=== PATIENT | female | born 1990 | race Caucasian/White ===

== ENCOUNTER → 2022-04-29 | Outpatient (CLI) | payer OTHER, SELFPAY ==
[2022-04-29 18:01] LABS: hCG Titer Quant., Serum 42 mIU/mL (1-3)
== END | disposition home or self-care (01) ==
PROVIDERS: Visit Provider Obstetrics & Gynecology
DX: N91.2 Amenorrhea, unspecified (principal)
CPT/HCPCS: 36415; 84702

== ENCOUNTER → 2022-05-01 | Outpatient (CLI) | payer OTHER, SELFPAY ==
[2022-05-01 18:04] LABS: hCG Titer Quant., Serum 107 mIU/mL (1-3)
== END | disposition home or self-care (01) ==
LOC: LAB 16:32
PROVIDERS: Visit Provider Obstetrics & Gynecology
DX: N91.2 Amenorrhea, unspecified (principal)
CPT/HCPCS: 36415; 84702

== ENCOUNTER → 2022-06-26 | Outpatient (CLI) | payer OTHER, SELFPAY ==
[2022-06-26 12:47] LABS: hCG Titer Quant., Serum 1793 mIU/mL (1-3)
== END | disposition home or self-care (01) ==
LOC: LAB 11:24
PROVIDERS: Referring Provider Obstetrics & Gynecology; Visit Provider Obstetrics & Gynecology
DX: O03.9 Complete or unspecified spontaneous abortion without complication (principal)
CPT/HCPCS: 36415; 84702

== ENCOUNTER → 2022-07-03 | Outpatient (CLI) | payer OTHER, SELFPAY ==
[2022-07-03 17:54] LABS: hCG Titer Quant., Serum 135 mIU/mL (1-3)
== END | disposition home or self-care (01) ==
LOC: LAB 15:47
PROVIDERS: Visit Provider Obstetrics & Gynecology
DX: O03.9 Complete or unspecified spontaneous abortion without complication (principal)
CPT/HCPCS: 36415; 84702

== ENCOUNTER → 2022-07-08 | Outpatient (CLI) | payer OTHER, SELFPAY ==
--- NOTE | 2022-07-08 11:39 | US_ITS ---
STUDY: ULTRASOUND OF THE FEMALE PELVIS - COMPLETE REASON FOR EXAM: Female, 32 years old. Incomplete . Vaginal bleeding. LMP: 04/04/2022. TECHNIQUE: Transvaginal TECHNICAL QUALITY: Adequate. COMPARISON: None. FINDINGS: The uterus is anteverted and is in a midline position. The uterus measures 8.7 cm x 5.5 cm x 4.1 cm. Normal uterine cervix. The endometrium is thickened and measures 14.3 mm in thickness, and is heterogeneous (striated) and fluid distended. Increased endometrial vascularity. There is no demonstrated myometrial mass. I.U.D. - The patient does not have an I.U.D. The right ovary is visualized. The right ovary measures 3.1 cm x 2 cm x 1.8 cm. There is no right ovarian cyst or ovarian mass. There is no visualized right adnexal mass or complex lesion. There is normal arterial and normal venous vascularity. The left ovary is visualized. The left ovary measures 3.2 cm x 1.7 cm x 2.1 cm. There is no left ovarian cyst or ovarian mass. There is no visualized left adnexal mass or complex lesion. There is normal arterial and normal venous vascularity. There is no fluid in the cul-de-sac. US/Transvaginal Non- IMPRESSION: Heterogeneous thickening of the endometrium as described. Possible retained products of conception. Electronically Signed: Pieter Sam MD at 13:03 EST ,
== END | disposition home or self-care (01) ==
PROVIDERS: Referring Provider Obstetrics & Gynecology; Visit Provider Obstetrics & Gynecology
DX: O03.4 Incomplete spontaneous abortion without complication (principal); N93.9 Abnormal uterine and vaginal bleeding, unspecified; R93.89 Abnormal findings on diagnostic imaging of other specified body structures
CPT/HCPCS: 76830

== ENCOUNTER 2022-07-10 10:50 | Day surgery (SDC) | payer OTHER, SELFPAY ==
[2022-07-10] VITALS (7 sets, daily range): BP systolic 121–132; BP diastolic 62–86; PULSE 16–92; RESP 16; TEMP 36.2–37.4; O2SAT 97–100; BMI 19.2
--- NOTE | 2022-07-10 07:54 | PCM.HP.BLA ---
History and Physical Date of Admission: 07/10/22 Intake Vital Signs ? 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 Required: No Is patient in pain?: No Allergies egg Allergy (Intermediate, Verified 06/26/22 11:04) Low blood pressurePenicillins Allergy (Mild, Verified 06/26/22 11:04) Rashwheat Allergy (Mild, Verified 06/26/22 11:04) Rash Medications bupropion HCl 150 mg 24 hr tablet, extended release (Wellbutrin XL) 150 mg PO QAM 06/12/22 [History Confirmed 06/26/22] bupropion HCl 300 mg 24 hr tablet, extended release (Wellbutrin XL) 300 mg PO QAM 06/12/22 [History Confirmed 06/26/22] lamotrigine 100 mg tablet (Lamictal) 100 mg PO DAILY 06/12/22 [History Confirmed 06/26/22] multivitamin no.47-iron fum 27 mg-folate no.1? 1 mg-dha 300 mg capsule (PNV-DHA) cap PO 06/12/22 [History Confirmed 06/26/22] misoprostol 200 mcg tablet (Cytotec) 800 mcg vaginal ONCE #4 tabs 06/24/22 [Rx Confirmed 06/26/22] Is last menstrual period known: No Post menopausal: No Patient : No : No [facility] Surgical History? [place] teeth extracted Social History? adopted:? No household members:? spouse housing:? house current occupational status:? 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 No pets and animals:? Yes pets and animals: dog(s) history of recent travel:? No sexually active:? Yes Smoking Status:? Never smoker alcohol intake:? former details:? socially prior to substance use type:? does not use diet:? gluten free and other well-balanced diet:? daily or most days caffeine:? No eating out:? 1-3 times/week during the past year weight has:? remained stable what type of physical activity do you participate in:? none svitlana/lutheran:? Zoroastrian seatbelt use:? always do you feel safe at home:? Yes additional social history:? 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 She states that bleeding is scant. ultrasound shows: FINDINGS: The uterus is anteverted and is in a midline position.? The uterus measures 8.7 cm x 5.5 cm x 4.1 cm.? Normal uterine cervix.? The endometrium is thickened and measures 14.3 mm in thickness, and is heterogeneous (striated) and fluid distended.? Increased endometrial vascularity.? There is no demonstrated myometrial mass. ? I.U.D. - The patient does not have an I.U.D. The right ovary is visualized.? The right ovary measures 3.1 cm x 2 cm x 1.8 cm.? There is no right ovarian cyst or ovarian mass.? There is no visualized right adnexal mass or complex lesion. There is normal arterial and normal venous vascularity. The left ovary is visualized.? The left ovary measures 3.2 cm x 1.7 cm x 2.1 cm.? There is no left ovarian cyst or ovarian mass.? There is no visualized left adnexal mass or complex lesion.? There is normal arterial and normal venous vascularity. There is no fluid in the cul-de-sac. US/Transvaginal Non- IMPRESSION: Heterogeneous thickening of the endometrium as described.? Possible retained products of conception. History ? ? ? 1 ? Elective abortions ? Hx Para ? ? ? 0 ? Spontaneous abortions ? Hx # Term Pregnancies ? Ectopic pregnancies ? Hx # Pregnancies ? Multiple births ? # of living children ? ROS Const ROS Unobtainable: All systems reviewed & are unremarkable except as noted in H Resp Resp: Reports system reviewed and no additional complaints, except as documented; Denies cough GI GI: Reports as per HPI Psych Psych: Reports system reviewed and no additional complaints, except as documented Exam Const General: cooperative, healthy appearing, comfortable and no acute distress Resp Effort & Inspection: normal respiratory effort Skin General: no rashes or lesions noted Psych Appearance: grossly normal Speech and Movement: speech and movement normal Coding Level of Care Code Off vis,est,level 3 Diagnoses Incomplete ? O03.4 Assessment and Plan Assessment and Plan (1) Incomplete : ?Status:?Acute ?Plan: ultrasound shows 16mm endometrium, no GS any longer. she states that she bleed very heavily and it is tapering off now. S/p cytotec. quant today and next week and rpt ultrasound next week for resolution.? Orders: Orders hCG Titer Quant., Serum Today O03.9 - Complete or unspecified spontaneous without complication ? hCG Titer Quant., Serum 1 Week O03.9 - Complete or unspecified spontaneous without complication ? patient did not pass all products of conception with cytotec. we discussed repeating dose vs suction dilation and curettage and she has decided to proceed with the procedure. After discussing the patient's diagnosis and treatment plan options, patient wishes to proceed with surgical management. I have discussed with the patient the risks, benefits, and alternatives of the procedure which include but are not limited to risks of anesthesia, bleeding, infection, possible damage to bowel, bladder, or surrounding vasculature which could lead to additional surgery to evaluate any complications. Patient agrees to procedure and wishes to proceed. ACOG/uptodate references given for additional information regarding procedure. UPDATE- I have seen the patient and performed any clinically relevant updates to the history and physical exam. Samia Parham, DO
[2022-07-10 11:38] LABS: Hematocrit 40.7 % (37-47); Mean Corp Hgb Conc 34.4 g/dL (32-36); Mean Corpuscular Hgb 32.5 pg (27.0-32.0); Mean Corpuscular Volume 94.4 fL (81-99); Mean Platelet Vol. 9.4 fl (6.2-12.0); Platelet Count 308 K/mm3 (150-450); RBC Distribution Width SD 42.1 fl (35.1-43.9); Red Blood Count 4.31 M/mm3 (4.2-5.4); White Blood Count 4.6 K/mm3 (4.4-11.0)
[2022-07-10] MEDS: Doxycycline 100 MG CAPSULE PO (11:38)
[2022-07-10] MEDS: Lactated Ringers 1,000 ML 15 ML IV (11:41)
--- NOTE | 2022-07-10 12:30 | POC_PTH ---
PATIENT: ALIA ROSAS LOC: [facility] [place][id number] AGE/SX: 32/F ROOM: RE07/10/[address]: Dr. Samia Parham DO : 1990 BED: DIS: 07/10/2022 SPEC #: [id number] RECD: 07/10/22 13:52 STATUS: GUICHO JENNYFER #: [id number] BRIA: 07/10/22 12:[address]: Samia Parham DEPT: SURGICAL PATHOLOGY RECD BY: Socorro Malloy ENTERED: 07/13/22 10:28 SP TYPE: PROD CONC OTHR DR: No Primary Care Phys Tissues: Product of conception, NOS Procedures: Surgery Specimen Level IV HEADER OPERATION: Suction dilation and curettage PRE-OP DIAGNOSIS: Incomplete TISSUE SUBMITTED: Products of conception MICROSCOPIC DIAGNOSIS Products of conception: Decidua and hyalinized immature chorionic villi (products of conception), clinically incomplete . See comment. KINSEY:emily 07/14/2022 COMMENT Endometrial tissue show dyssynchronous endometrium consisting of secretory and proliferative phase of endometrium. MICROSCOPIC DESCRIPTION Slides are reviewed. GROSS DESCRIPTION Received in fixative is one container labeled with the patient's name and designated products of conception. The specimen consists of multiple fragments of hemorrhagic soft tissue that in aggregate measure 4.5 x 3.5 x 1 cm. tissue is not identified. The specimen is totally submitted in three cassettes. / KINSEY:emily 07/13/2022 TC:5 CPT: 59829
[2022-07-10] MEDS: Lidocaine 1% (20 ml mdv) 20 ML Vial (12:35)
--- NOTE | 2022-07-10 12:48 | DCINST_ITS ---
Discharge Instructions Diet Discharge Diet: No restrictions Activity Discharge Activity: Return to Normal Activity, May Shower and May Take a Tub Bath (after 1 week) May resume sexual activity in: 1-2 weeks Weight Bearing Status: Weight bearing as tolerated Lifting Restrictions: none Dressing / Incision Call your doctor if you observe: Fever of 101 or Higher, Using more than 1 pad per hour, Shortness of breath and Uncontrolled pain Follow Up Care Please Follow Up With: Samia Parham DO When: Call [phone] to schedule appointment. Test Results: Test results from this visit will be discussed in further detail at your follow- up appointment, if applicable. Discharge Plan Admission Primary Reason for Your Visit: suction D&C Attending Provider: Samia Parham Primary Care Provider: Care PhysicianCarlee Primary Discharge Orders/Prescriptions Prescriptions: New oxycodone-acetaminophen [Percocet] 5-325 mg tablet 1 tab PO Q4H PRN (Reason: pain) 3 Days Qty: 10 0RF Rx Instructions: 1-2 tabs q 4 hrs as needed for pain No Action bupropion HCl [Wellbutrin XL] 150 mg tablet extended release 24 hr 150 mg PO QAM bupropion HCl [Wellbutrin XL] 300 mg tablet extended release 24 hr 300 mg PO QAM lamotrigine [Lamictal] 100 mg tablet 100 mg PO QHS PNV-DHA 27 mg iron-1 mg -300 mg capsule 1 cap PO DAILY modafinil 200 mg Tablet 200 mg PO BID Referrals / Follow Up: Care Physician,Carlee Primary [Primary Care Provider] - Disposition Disposition (needs filled in before D/C Order can be placed): Home, Self Care
--- NOTE | 2022-07-10 13:11 | PCM.OP.BLANK ---
Operative Report Date of Procedure: 07/10/22 Preoperative diagnosis: 11 weeks incomplete , retained products of conception Postoperative diagnosis: 11 weeks incomplete , retained products of conception Surgery: Suction dilation and curettage Surgeon: Dr. Samia Parham, Urine output: none Fluids: 900cc Estimated blood loss: 30cc Details of the proceudre The patient was taken to the operating room and placed under MAC local anesthesia. She was prepped and draped in the normal sterile fashion the dorsal lithotomy position. Bladder was drained of clear urine and anterior lip of the cervix was grasped and the uterus sounded to 8cm. Cervix was progressively dilated to allow passage of a 7 mm suction curette. Progressive passes were made removing the retained products of conception without complication. Sharp curettage confirmed complete removal of the retained products. All instruments were removed from the vagina and excellent hemostasis was noted and the patient was taken to recovery in stable condition. Multi Select Codes Urinary/Genital Urinary/Genital CPT Codes: 49108 Surg Trtmt missed Ab 1TM
--- NOTE | 2022-07-10 13:38 | PCM.HP.BLA ---
History and Physical Date of Admission: 07/10/22 Intake Vital Signs ? 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 Is patient in pain?: No Allergies egg Allergy (Intermediate, Verified 06/26/22 11:04) Low blood pressurePenicillins Allergy (Mild, Verified 06/26/22 11:04) Rashwheat Allergy (Mild, Verified 06/26/22 11:04) Rash Medications bupropion HCl 150 mg 24 hr tablet, extended release (Wellbutrin XL) 150 mg PO QAM 06/12/22 [History Confirmed 06/26/22] bupropion HCl 300 mg 24 hr tablet, extended release (Wellbutrin XL) 300 mg PO QAM 06/12/22 [History Confirmed 06/26/22] lamotrigine 100 mg tablet (Lamictal) 100 mg PO DAILY 06/12/22 [History Confirmed 06/26/22] multivitamin no.47-iron fum 27 mg-folate no.1? 1 mg-dha 300 mg capsule (PNV-DHA) cap PO 06/12/22 [History Confirmed 06/26/22] misoprostol 200 mcg tablet (Cytotec) 800 mcg vaginal ONCE #4 tabs 06/24/22 [Rx Confirmed 06/26/22] Is last menstrual period known: No Post menopausal: No Patient : No : No [facility] Surgical History? [place] teeth extracted Social History? adopted:? No household members:? spouse housing:? house current occupational status:? 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 Yes pets and animals: dog(s) history of recent travel:? No sexually active:? Yes Smoking Status:? Never smoker alcohol intake:? former details:? socially prior to substance use type:? does not use diet:? gluten free and other well-balanced diet:? daily or most days caffeine:? No eating out:? 1-3 times/week during the past year weight has:? remained stable what type of physical activity do you participate in:? none svitlana/buddhist:? Nondenominational seatbelt use:? always do you feel safe at home:? Yes additional social history:? 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 History ? ? ? 1 ? Elective abortions ? Hx Para ? ? ? 0 ? Spontaneous abortions ? Hx # Term Pregnancies ? Ectopic pregnancies ? Hx # Pregnancies ? Multiple births ? # of living children ? ROS Const ROS Unobtainable: All systems reviewed & are unremarkable except as noted in H Resp Resp: Reports system reviewed and no additional complaints, except as documented; Denies cough GI GI: Reports as per HPI Psych Psych: Reports system reviewed and no additional complaints, except as documented Exam Const General: cooperative, healthy appearing, comfortable and no acute distress Resp Effort & Inspection: normal respiratory effort Skin General: no rashes or lesions noted Psych Appearance: grossly normal Speech and Movement: speech and movement normal Coding Level of Care Code Off vis,est,level 3 Diagnoses Incomplete ? O03.4 Assessment and Plan Assessment and Plan (1) Incomplete : ?Status:?Acute ?Plan: ultrasound shows 16mm endometrium, no GS any longer. she states that she bleed very heavily and it is tapering off now. S/p cytotec. x 2 After discussing the patient's diagnosis and treatment plan options, patient wishes to proceed with surgical management. plan for suction dilation and curettage. I have discussed with the patient the risks, benefits, and alternatives of the procedure which include but are not limited to risks of anesthesia, bleeding, infection, possible damage to bowel, bladder, or surrounding vasculature which could lead to additional surgery to evaluate any complications. Patient agrees to procedure and wishes to proceed. ACOG/uptodate references given for additional information regarding procedure.
== END 2022-07-10 14:32 | disposition home or self-care (01) ==
LOC: SDC 10:51 → AC 10:53
PROVIDERS: Referring Provider Obstetrics & Gynecology; Visit Provider Obstetrics & Gynecology
PROC: (CPT 59812; principal; 2022-07-10 12:15)
DX: O03.4 Incomplete spontaneous abortion without complication (principal)
CPT/HCPCS: 59812; 01965; 85027; 86850; 86900; 86901; 88305; J7120; J2405

== ENCOUNTER → 2022-09-08 | Outpatient (CLI) | payer OTHER, SELFPAY ==
--- NOTE | 2022-09-08 10:19 | RAD_ITS ---
INDICATION: DEXTROSCOLIOSIS EXAMINATION/TECHNIQUE: X-RAY - XR Spine Cervical 4 or 5 Views COMPARISON: None. FINDINGS: VERTEBRAE: Preserved vertebral body height. No fracture. No spondylolisthesis. Preservation of the normal cervical lordosis. Minimal multilevel facet arthropathy. DISCS: Minimal multilevel degenerative disc disease and spondylosis. NECK SOFT TISSUES: No prevertebral soft tissue widening. LUNG APICES: Clear. RAD/Cerv Spine 4 or 5 Views IMPRESSION: No evidence of acute fracture or spondylolisthesis. Minimal multilevel degenerative disc disease and spondylosis. Electronically Signed: Brian Rossi MD at 23:38 EST ,
[2022-09-08 12:42] LABS: Erythrocyte Sedimentation Rate < 1 mm/hr (0-30)
[2022-09-08 12:46] LABS: Absolute Lymphocyte Count 2.09 X10^3/uL (0.83-4.51); Absolute Neutrophil Count 3.8 X10^3/uL (2.0-7.7); Basophil# 0.05 X10^3/uL; Basophil% 0.7 % (0-1); Eosinophil# 0.23 X10^3/uL; Eosinophils% 3.4 % (0-5); Hematocrit 41.9 % (37-47); Hemoglobin 14.1 g/dL (12.0-15.0); Lymphocyte # 2.09 X10^3/ul (0.83-4.51); Mean Corp Hgb Conc 33.7 g/dL (32-36); Mean Corpuscular Hgb 32.6 pg (27.0-32.0); Mean Corpuscular Volume 96.8 fL (81-99); Mean Platelet Vol. 10.3 fl (6.2-12.0); Monocyte# 0.59 X10^3/uL; Monocyte% 8.7 % (0-10); NRBC Flagged by Analyzer 0 % (0-5); Neutrophil # 3.78 X10^3/uL (2.7-7.7); Neutrophil % 56.1 % (47-70); Platelet Count 287 K/mm3 (150-450); RBC Distribution Width SD 43.1 fl (35.1-43.9); Red Blood Count 4.33 M/mm3 (4.2-5.4); White Blood Count 6.8 K/mm3 (4.4-11.0)
[2022-09-08 13:18] LABS: ALB/GLOB Ratio 1.5 RATIO (0.9-2.4); AST(SGOT) 27 U/L (15-37); Alanine Aminotransfer ALT/SGPT 37 U/L (13-56); Albumin, Serum 4.4 g/dL (3.2-5.0); Alkaline Phosphatase 65 U/L (45-117); Anion Gap 8 (5-15); BUN 18 mg/dL (7-18); BUN/Creat Ratio 26.4 RATIO (10-20); CRP < 2.90 mg/L (0.0-3.0); Calcium,Total 9.3 mg/dL (8.5-10.1); Chloride 104 mmol/L (98-107); Creatinine, Serum 0.68 mg/dL (0.55-1.02); EST Glomerular Filtration Rate 106 mL/min (>60); Est Glom Filt Rate - Afr Amer 129 mL/min (>60); Glucose 87 mg/dL (74-106); Potassium 3.7 mmol/L (3.5-5.1); Protein, Total 7.4 g/dL (6.4-8.2); Sodium Level 140 mmol/L (136-145); T4 Free Direct 0.75 ng/dL (0.76-1.46); Thyroid Stim Hormone (TSH) 1.29 uIU/mL (0.358-3.74)
[2022-09-09 14:09] LABS: PROEL- A/G Ratio 1.8 (0.7-1.7); PROEL- Albumin 4.5 g/dL (2.9-4.4); PROEL- Alpha-1 Globulin 0.4 g/dL (0.0-0.4); PROEL- Alpha-2 Globulin 0.6 g/dL (0.4-1.0); PROEL- Beta Globulin 0.9 g/dL (0.7-1.3); PROEL- Gamma Globulin 0.7 g/dL (0.4-1.8); PROEL- Globulin, Total 2.5 g/dL (2.2-3.9)
[2022-09-09 15:16] LABS: Complement C3 97 mg/dL (82-167)
[2022-09-09 20:35] LABS: ANTINUCLEAR ANTIBODIES DIRECT Negative (Negative)
== END | disposition home or self-care (01) ==
PROVIDERS: PCP Family Medicine; Referring Provider Family Medicine; Visit Provider Family Medicine
DX: M41.82 Other forms of scoliosis, cervical region (principal); R21 Rash and other nonspecific skin eruption
CPT/HCPCS: 36415; 72050; 80053; 84165; 84439; 84443; 85025; 85652; 86038; 86140; 86160

== ENCOUNTER → 2022-12-14 | Outpatient (CLI) | payer OTHER, SELFPAY ==
[2022-12-14 12:20] LABS: Absolute Lymphocyte Count 1.42 X10^3/uL (0.83-4.51); Absolute Neutrophil Count 5.2 X10^3/uL (2.0-7.7); Basophil# 0.05 X10^3/uL; Basophil% 0.7 % (0-1); Eosinophil# 0.15 X10^3/uL; Hemoglobin 14.4 g/dL (12.0-15.0); Lymphocyte # 1.42 X10^3/ul (0.83-4.51); Lymphocyte % 19.2 % (19-41); Mean Corp Hgb Conc 33.5 g/dL (32-36); Mean Corpuscular Hgb 32.5 pg (27.0-32.0); Mean Corpuscular Volume 97.1 fL (81-99); Mean Platelet Vol. 9.8 fl (6.2-12.0); Monocyte# 0.58 X10^3/uL; Monocyte% 7.8 % (0-10); NRBC Flagged by Analyzer 0 % (0-5); Neutrophil # 5.18 X10^3/uL (2.7-7.7); Platelet Count 281 K/mm3 (150-450); RBC Distribution Width CV 11.9 % (11.6-14.6); RBC Distribution Width SD 42.6 fl (35.1-43.9); Red Blood Count 4.43 M/mm3 (4.2-5.4); White Blood Count 7.4 K/mm3 (4.4-11.0)
[2022-12-14 12:52] LABS: Vitamin B12 607 pg/mL (211-911); Vitamin D,25 Hydroxy 53.4 ng/mL
[2022-12-14 14:34] LABS: ALB/GLOB Ratio 1.5 RATIO (0.9-2.4); AST(SGOT) 21 U/L (15-37); Alanine Aminotransfer ALT/SGPT 31 U/L (13-56); Albumin, Serum 4.3 g/dL (3.2-5.0); Alkaline Phosphatase 57 U/L (45-117); Anion Gap 6 (5-15); BUN 15 mg/dL (7-18); BUN/Creat Ratio 22.5 RATIO (10-20); Calcium,Total 8.9 mg/dL (8.5-10.1); Chloride 111 mmol/L (98-107); Creatinine, Serum 0.67 mg/dL (0.55-1.02); EST Glomerular Filtration Rate 109 mL/min (>60); Est Glom Filt Rate - Afr Amer 132 mL/min (>60); Free T3 2.2 pg/mL (2.18-3.98); Globulin 2.9 g/dL (2.2-4.2); Glucose 90 mg/dL (74-106); Potassium 4.1 mmol/L (3.5-5.1); Prolactin 19.9 ng/mL; Protein, Total 7.2 g/dL (6.4-8.2); Sodium Level 139 mmol/L (136-145); Thyroid Stim Hormone (TSH) 1.07 uIU/mL (0.358-3.74)
[2022-12-15 13:08] LABS: Adrenocorticotropic Hormone 10.8 pg/mL (7.2-63.3)
== END | disposition home or self-care (01) ==
LOC: MTLAB 10:47
PROVIDERS: PCP Family Medicine; Referring Provider Family Medicine; Visit Provider Family Medicine
DX: N64.3 Galactorrhea not associated with childbirth (principal)
CPT/HCPCS: 36415; 80053; 82024; 82306; 82607; 84146; 84439; 84443; 84481; 85025

== ENCOUNTER → 2023-01-18 | Outpatient (CLI) | payer OTHER, SELFPAY ==
[2023-01-18 13:32] LABS: hCG Titer Quant., Serum 84 mIU/mL (1-3)
== END | disposition home or self-care (01) ==
PROVIDERS: PCP Family Medicine; Referring Provider Obstetrics & Gynecology; Visit Provider Obstetrics & Gynecology
DX: O20.0 Threatened abortion (principal); Z3A.00 Weeks of gestation of pregnancy not specified
CPT/HCPCS: 36415; 84702

== ENCOUNTER → 2023-01-20 | Outpatient (CLI) | payer OTHER, SELFPAY ==
[2023-01-20 13:35] LABS: hCG Titer Quant., Serum 170 mIU/mL (1-3)
== END | disposition home or self-care (01) ==
LOC: LAB 12:20
PROVIDERS: PCP Family Medicine; Referring Provider Obstetrics & Gynecology; Visit Provider Obstetrics & Gynecology
DX: O20.0 Threatened abortion (principal); Z3A.00 Weeks of gestation of pregnancy not specified
CPT/HCPCS: 36415; 84702

== ENCOUNTER → 2023-01-25 | Outpatient (CLI) | payer OTHER, SELFPAY ==
--- NOTE | 2023-01-25 08:18 | MRI_ITS ---
STUDY: MRI BRAIN WITHOUT CONTRAST (ATTENTION PITUITARY GLAND) REASON FOR EXAM: Female, 32 years old. Attention pituitary -- PT 5 WEEKS , NO CONTRAST GIVEN TECHNIQUE: Standardized multiplanar fat and water weighted pulse sequences were obtained without IV contrast. Thin sections of the pituitary gland were performed without contrast since patient is 5 weeks .. COMPARISON: None. FINDINGS: Normal size of the pituitary gland for the patient?s age and gender. No suspicious intrapituitary lesion of the pituitary gland. Normal infundibular stalk and suprasellar cistern. Normal optic chiasm and hypothalamus. Normal size of the ventricles and extra-axial spaces for the patient''s age. Normal white matter tracts of the supratentorial brain. Normal bilateral basal ganglia. Normal thalami. Normal flow voids within the major intracranial circulation suggesting patency by spin echo criteria. There is no extra-axial fluid accumulation. Normal tectal plate and pineal gland. Normal midbrain, vignesh and medulla. Normal cerebellum. Normal basal cisterns. Normal bilateral temporal bones. Normal bilateral internal auditory canals. No demonstrated orbital abnormality, within the constraints of a routine brain study. Normal visualized paranasal sinuses. Normal calvarium and skull base. Normal visualized upper cervical spine. Normal visualized soft tissue structures. MRI/Brain without Contrast IMPRESSION: Normal unenhanced MRI of the brain and pituitary gland. Electronically Signed: Arturo Martin MD at 14:30 EDT ,
== END | disposition home or self-care (01) ==
PROVIDERS: PCP Family Medicine; Referring Provider Family Medicine; Visit Provider Family Medicine
DX: N64.3 Galactorrhea not associated with childbirth (principal)
CPT/HCPCS: 70551

== ENCOUNTER → 2023-01-27 | Outpatient (CLI) | payer OTHER, SELFPAY ==
[2023-01-27 15:44] LABS: hCG Titer Quant., Serum 2374 mIU/mL (1-3)
== END | disposition home or self-care (01) ==
LOC: LAB 14:06
PROVIDERS: PCP Family Medicine; Referring Provider Obstetrics & Gynecology; Visit Provider Obstetrics & Gynecology
DX: O20.0 Threatened abortion (principal); Z3A.00 Weeks of gestation of pregnancy not specified
CPT/HCPCS: 36415; 84702

== ENCOUNTER → 2023-01-28 | Outpatient (CLI) | payer OTHER, SELFPAY ==
[2023-01-28 16:48] LABS: Absolute Lymphocyte Count 2.22 X10^3/uL (0.83-4.51); Absolute Neutrophil Count 7.5 X10^3/uL (2.0-7.7); Basophil# 0.05 X10^3/uL; Basophil% 0.5 % (0-1); Eosinophil# 0.23 X10^3/uL; Eosinophils% 2.1 % (0-5); Hematocrit 41.4 % (37-47); Hemoglobin 14.2 g/dL (12.0-15.0); Lymphocyte # 2.22 X10^3/ul (0.83-4.51); Lymphocyte % 20.3 % (19-41); Mean Corp Hgb Conc 34.3 g/dL (32-36); Mean Corpuscular Hgb 32.7 pg (27.0-32.0); Mean Corpuscular Volume 95.4 fL (81-99); Mean Platelet Vol. 9.8 fl (6.2-12.0); Monocyte# 0.86 X10^3/uL; Monocyte% 7.9 % (0-10); NRBC Flagged by Analyzer 0 % (0-5); Neutrophil % 68.7 % (47-70); Platelet Count 288 K/mm3 (150-450); RBC Distribution Width CV 11.9 % (11.6-14.6); RBC Distribution Width SD 41.8 fl (35.1-43.9); Red Blood Count 4.34 M/mm3 (4.2-5.4); White Blood Count 10.9 K/mm3 (4.4-11.0)
[2023-01-28 20:35] LABS: HIV - WCH Non-Reactive (Nonreactive); Hepatitis B Surface Antigen Non-Reactive (Nonreactive); Hepatitis C Antibody Non-Reactive (Nonreactive); Rubella IgG Reactive (Nonreactive); Syphilis Antibodies Non-reactive
== END | disposition home or self-care (01) ==
LOC: LAB 16:13
PROVIDERS: PCP Family Medicine; Referring Provider Obstetrics & Gynecology; Visit Provider Obstetrics & Gynecology
DX: Z34.90 Encounter for supervision of normal pregnancy, unspecified, unspecified trimester (principal); Z3A.00 Weeks of gestation of pregnancy not specified
CPT/HCPCS: 36415; 85025; 86703; 86762; 86780; 86803; 86850; 86900; 86901; 87086; 87340; 87491; 87591

== ENCOUNTER → 2023-01-29 | Outpatient (CLI) | payer OTHER, SELFPAY ==
--- NOTE | 2023-01-29 08:34 | US_ITS ---
STUDY: FIRST TRIMESTER OBSTETRICAL ULTRASOUND REASON FOR EXAM: Female, 32 years old threatened abortion4 -- cramping and spotting with LMP: December 20, 2022. TECHNIQUE: Transvaginal TECHNICAL QUALITY: Adequate. PRIOR ULTRASOUND: None. FINDINGS: There is visualization of a single gestational sac in a normal intrauterine position. The mean sac diameter (MSD) measures 8 mm, indicating an estimated gestational age (EGA) of 5 weeks, 4 days. The gestational sac shape is within normal limits. There is a visualized yolk sac. The yolk sac measures 2.6 mm. The placenta is non-visualized. There is no demonstrated embryo ( pole). The estimated gestation age (EGA) by LMP is 5 weeks, 5 days. The estimated date of delivery (JUAN) by LMP is September 25, 2022. The estimated gestation age (EGA) by US is 5 weeks, 4 days. The estimated date of delivery (JUAN) by US is September 26, 2022. The uterus measures 7.7 cm x 5.6 x 4.5 cm. A small 9 mm x 9 mm x 6 mm fundal fibroid. The cervix is closed. The right ovary measures 2.9 cm x 2.4 cm x 1.7 cm. There is no right ovarian cyst. There is no visualized right adnexal mass or complex lesion. The left ovary measures 2.9 cm x 3.2 cm x 1.8 cm. There is no left ovarian cyst. There is no visualized left adnexal mass or complex lesion. There is no fluid in the cul de sac. US/Transvaginal w/Preg US IMPRESSION: Intrauterine gestational sac with a mean gestational age of 5 weeks and 4 days. Questionable subcentimeter uterine fibroid Electronically Signed: Pieter Sam MD at 9:40 EDT ,
[2023-01-31 09:07] LABS: Thyroid Peroxidase AB < 9 IU/mL (0-34)
== END | disposition home or self-care (01) ==
PROVIDERS: Internal Medicine Endocrinology, Diabetes & Metabolism; PCP Family Medicine; Referring Provider Obstetrics & Gynecology; Visit Provider Obstetrics & Gynecology
DX: O09.299 Supervision of pregnancy with other poor reproductive or obstetric history, unspecified trimester (principal); O20.0 Threatened abortion; Z3A.00 Weeks of gestation of pregnancy not specified
CPT/HCPCS: 36415; 76817; 86376

== ENCOUNTER → 2023-02-02 | Outpatient (CLI) | payer OTHER, SELFPAY ==
--- NOTE | 2023-02-02 14:18 | US_ITS ---
EXAM: US , TRANSVAGINAL CLINICAL INDICATION: threatened -- Please schedule 02/03/23. TECHNIQUE: Real-time transvaginal obstetrical ultrasound of the maternal pelvis and a first trimester with image documentation. Transvaginal imaging was used for better evaluation of the fetus and adnexa. COMPARISON: No relevant prior studies available. FINDINGS: GESTATION: There is a gestational sac mean sac diameter 1.1 cm age 5 weeks 6 days. There is a pole present with a crown-rump length of 4 mm age 6 weeks 2 days. heart rate of 99 bpm was measured. There is a 3 mm yolk sac. PLACENTA/AMNIOTIC FLUID: Cannot be adequately evaluated due to the early gestational age. UTERUS/CERVIX: Uterus measures 8.5 x 4.4 x 5.8 cm. No myometrial mass. OVARIES: The right ovary measures 1.6 x 1.1 x 1.8 cm. Left ovary measures 3.1 x 1.97 cm. No mass. FREE FLUID: No free fluid. US/Transvaginal w/Preg US IMPRESSION: Intrauterine gestation with an average ultrasound age of 6 weeks 1 day and an ultrasound estimated due date of 09/27/2023. heart rate is 99 bpm. Electronically Signed: Sg Carter MD at 23:58 EDT ,
== END | disposition home or self-care (01) ==
LOC: US 14:18
PROVIDERS: PCP Family Medicine; Referring Provider Obstetrics & Gynecology; Visit Provider Obstetrics & Gynecology
DX: O20.0 Threatened abortion (principal); Z3A.01 Less than 8 weeks gestation of pregnancy
CPT/HCPCS: 76817

== ENCOUNTER → 2023-02-04 | Outpatient (CLI) | payer OTHER, SELFPAY | END | disposition home or self-care (01) | LOC: LABSPEC 12:52 | PROVIDERS: PCP Family Medicine; Referring Provider Obstetrics & Gynecology; Visit Provider Obstetrics & Gynecology | DX: O09.90 Supervision of high risk pregnancy, unspecified, unspecified trimester (principal); Z3A.00 Weeks of gestation of pregnancy not specified | CPT/HCPCS: 87086 ==

== ENCOUNTER → 2023-02-09 | Outpatient (CLI) | payer OTHER, SELFPAY ==
--- NOTE | 2023-02-09 09:49 | US_ITS ---
STUDY: FIRST TRIMESTER OBSTETRICAL ULTRASOUND REASON FOR EXAM: Female, 32 years old threatened SAB LMP: December 20, 2022. TECHNIQUE: Transvaginal TECHNICAL QUALITY: Adequate. PRIOR ULTRASOUND: Comparison is made with prior study dated February 02, 2023. FINDINGS: There is visualization of a single gestational sac in a normal intrauterine position. The mean sac diameter (MSD) measures 1.71 cm, indicating an estimated gestational age (EGA) of 6 weeks, 4 days. The gestational sac shape is within normal limits. There is a visualized yolk sac. The yolk sac measures 3.7 mm. The placenta is non-visualized. There is visualization of a live embryo. The crown-rump length (CRL) measures 7.9 mm, indicating an estimated gestational age (EGA) of 6 weeks, 6 days. There is demonstrated cardiac activity with a heart rate of 132 bpm. The estimated gestation age (EGA) by LMP is 7 weeks, 2 days. The estimated date of delivery (JUAN) by LMP is September 26, 2023. The estimated gestation age (EGA) by US is 6 weeks, 5 days. The estimated date of delivery (JUAN) by US is September 30, 2023. The uterus measures 8.9 cm x 6.5 cm x 4.3 cm. There is no demonstrated uterine fibroid. The cervix is closed. The right ovary measures 2.6 cm x 1.8 cm x 1.6 cm. There is no right ovarian cyst. There is no visualized right adnexal mass or complex lesion. The left ovary measures 3 cm x 2.7 cm x 1.9 cm. There is no left ovarian cyst. There is no visualized left adnexal mass or complex lesion. There is no fluid in the cul de sac. US/Init OB < 14Wks US IMPRESSION: Single live gestation with a mean gestational age of 6 weeks and 5 days. Electronically Signed: Pieter Sam MD at 15:09 EDT ,
== END | disposition home or self-care (01) ==
LOC: US 09:48
PROVIDERS: PCP Family Medicine; Referring Provider Obstetrics & Gynecology; Visit Provider Obstetrics & Gynecology
DX: O20.0 Threatened abortion (principal); Z3A.01 Less than 8 weeks gestation of pregnancy
CPT/HCPCS: 76801

== ENCOUNTER → 2023-02-25 | Outpatient (CLI) | payer OTHER, SELFPAY ==
[2023-02-25 13:15] LABS: NATERA MAILED SPECIMEN
[2023-02-25 13:18] LABS: Absolute Lymphocyte Count 1.89 X10^3/uL (0.83-4.51); Absolute Neutrophil Count 6.1 X10^3/uL (2.0-7.7); Basophil# 0.04 X10^3/uL; Basophil% 0.4 % (0-1); Eosinophil# 0.32 X10^3/uL; Eosinophils% 3.5 % (0-5); Hemoglobin 13.1 g/dL (12.0-15.0); Lymphocyte # 1.89 X10^3/ul (0.83-4.51); Lymphocyte % 20.9 % (19-41); Mean Corp Hgb Conc 32.8 g/dL (32-36); Mean Corpuscular Hgb 31.3 pg (27.0-32.0); Mean Corpuscular Volume 95.5 fL (81-99); Mean Platelet Vol. 9.6 fl (6.2-12.0); Monocyte# 0.64 X10^3/uL; Monocyte% 7.1 % (0-10); NRBC Flagged by Analyzer 0 % (0-5); Neutrophil # 6.09 X10^3/uL (2.7-7.7); Neutrophil % 67.4 % (47-70); Platelet Count 354 K/mm3 (150-450); RBC Distribution Width CV 11.8 % (11.6-14.6); RBC Distribution Width SD 40.8 fl (35.1-43.9); Red Blood Count 4.19 M/mm3 (4.2-5.4)
[2023-02-25 14:19] LABS: HIV - WCH Non-Reactive (Nonreactive); Hepatitis B Surface Antigen Non-Reactive (Nonreactive); Hepatitis C Antibody Non-Reactive (Nonreactive); Rubella IgG Reactive (Nonreactive); Syphilis Antibodies Non-reactive
== END | disposition home or self-care (01) ==
LOC: LAB 12:13
PROVIDERS: PCP Family Medicine; Referring Provider Obstetrics & Gynecology; Visit Provider Obstetrics & Gynecology
DX: Z34.81 Encounter for supervision of other normal pregnancy, first trimester (principal); Z31.430 Encounter of female for testing for genetic disease carrier status for procreative management; Z3A.00 Weeks of gestation of pregnancy not specified
CPT/HCPCS: 36415; 85025; 86703; 86762; 86780; 86803; 86850; 86870; 86900; 86901; 87340

== ENCOUNTER → 2023-03-04 | Outpatient (CLI) | payer OTHER, SELFPAY ==
[2023-03-04 17:13] LABS: NATERA MAILED SPECIMEN
== END | disposition home or self-care (01) ==
LOC: LAB 16:06
PROVIDERS: PCP Family Medicine; Referring Provider Obstetrics & Gynecology; Visit Provider Obstetrics & Gynecology
DX: Z34.81 Encounter for supervision of other normal pregnancy, first trimester (principal)
CPT/HCPCS: 36415

== ENCOUNTER 2023-03-19 21:16 | Emergency (ER) | payer OTHER, SELFPAY ==
[2023-03-19 21:17] VITALS: BP 138/58; PULSE 83; RESP 18; TEMP 36.7; O2SAT 99; BMI 19.4
[2023-03-19 21:36] LABS: Absolute Lymphocyte Count 2.13 X10^3/uL (0.83-4.51); Basophil# 0.03 X10^3/uL; Basophil% 0.3 % (0-1); Eosinophil# 0.27 X10^3/uL; Eosinophils% 2.9 % (0-5); Hematocrit 36.9 % (37-47); Lymphocyte # 2.13 X10^3/ul (0.83-4.51); Lymphocyte % 23.2 % (19-41); Mean Corp Hgb Conc 35.2 g/dL (32-36); Mean Corpuscular Hgb 32.7 pg (27.0-32.0); Mean Corpuscular Volume 92.9 fL (81-99); Mean Platelet Vol. 9.8 fl (6.2-12.0); Monocyte% 7.6 % (0-10); NRBC Flagged by Analyzer 0 % (0-5); Neutrophil # 6.01 X10^3/uL (2.7-7.7); Neutrophil % 65.7 % (47-70); Platelet Count 246 K/mm3 (150-450); RBC Distribution Width SD 41.6 fl (35.1-43.9); Red Blood Count 3.97 M/mm3 (4.2-5.4); White Blood Count 9.2 K/mm3 (4.4-11.0)
[2023-03-19 21:53] LABS: Anion Gap 6 (5-15); BUN 13 mg/dL (7-18); BUN/Creat Ratio 24.6 RATIO (10-20); Calcium,Total 9.5 mg/dL (8.5-10.1); Chloride 106 mmol/L (98-107); Creatinine, Serum 0.53 mg/dL (0.55-1.02); EST Glomerular Filtration Rate 143 mL/min (>60); Est Glom Filt Rate - Afr Amer 173 mL/min (>60); Estimated Creatinine Clearance 132.71 ml/min; Glucose 89 mg/dL (74-106); Potassium 3.5 mmol/L (3.5-5.1); Sodium Level 136 mmol/L (136-145)
--- NOTE | 2023-03-19 21:59 | PCM.PN.BLA ---
Progress Note patient seen for early bleeding-viable IUP seen with FHT present. no gross abnormalities seen. cervix closed thick high, blood in vault- dark. recommend KB test and routine fu, pelvic rest
--- NOTE | 2023-03-19 22:02 | ED.VIS.FEGU ---
HPI HPI - Female History of Present Illness Chief Complaint: Vag Bld, Preg Informant: patient Narrative Narrative: Patient presents with vaginal bleeding. Patient was working. She went home and noticed that she had a fair amount of vaginal bleeding. She is 13 weeks and was certainly concerned. She had an episode of this earlier in . But has been doing well. [facility] Medical History Anxiety Back pain Depression History of echocardiogram Incomplete Injury of head and neck Loss of consciousness Non-smoker Home Medications lamotrigine 100 mg tablet (Lamictal) 100 mg PO QHS 06/12/22 [History Last Taken Unknown] multivitamin no.47-iron fum 27 mg-folate no.1 1 mg-dha 300 mg capsule (PNV-DHA) 1 cap PO DAILY 06/12/22 [History Last Taken Unknown] progesterone micronized 100 mg vaginal insert 200 mg vaginal BID 10 weeks #21 ea 02/01/23 [Rx Last Taken Unknown] ondansetron HCl 4 mg tablet 4 mg PO Q6H PRN nausea and vomiting #30 tabs 02/04/23 [Rx Last Taken Unknown] bupropion HCl 150 mg 24 hr tablet, extended release (Wellbutrin XL) 450 mg PO QAM 02/25/23 [History Last Taken Unknown] Allergy/AdvReac Type Severity Reaction Status Date / Time egg Allergy Intermediate Low blood Verified 03/19/23 21:20 pressure Penicillins Allergy Mild Rash Verified 03/19/23 21:20 wheat Allergy Mild Rash Verified 03/19/23 21:20 Family History Aunt Breast cancer, Onset Age: 40 maternal Surgical History Status post dilation and curettage [place] teeth extracted Social History adopted: No household members: spouse housing: house current occupational status: employed 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: No pets and animals: Yes pets and animals: dog(s) history of recent travel: Yes ([place]) out of state: Yes out of country: No sexually active: Yes Smoking Status: Never smoker alcohol intake: former details: socially prior to substance use type: does not use diet: gluten free and other well-balanced diet: daily or most days caffeine: No eating out: 1-3 times/week during the past year weight has: remained stable what type of physical activity do you participate in: none svitlana/sabianism: Islam seatbelt use: always do you feel safe at home: Yes additional social history: Mary Jo CADET ROS ED Constitutional Constitutional ED: Denies fever(s) Cardiovascular Cardiovascular: Denies palpitations Respiratory/Chest Respiratory/Chest: Denies dyspnea Genitourinary Genitourinary ED: Reports other Details: See history of present illness Hematologic/Lymphatic Hematologic/Lymphatic: Denies easy bleeding or easy bruising EXAM Physical Exam Narrative Exam Narrative: Patient is awake alert and appropriate. HEENT shows no sign of pallor or trauma. Comprehensive exam was not done. Patient was seen in the ED by her OB physician. OB physician did a complete exam, pelvic exam and ultrasound. For this reason I do not think this needs to be repeated by me. Patient is nontoxic pleasant and comfortable with this plan. Const Vital Signs: 03/19/23 21:17 03/19/23 22:04 Temperature 98.0 F Temperature Source Temporal Pulse Rate 83 75 Respiratory Rate 18 16 Blood Pressure 138/58 H Blood Pressure Mean 84 Pulse Ox 99 99 Oxygen Delivery Method Room Air MDM MDM MDM Narrative Medical decision making narrative: Patient CBC was overall normal. Patient's electrolytes were normal. Patient's quantitative beta-hCG was 73,941. Patient was seen and evaluated including comprehensive physical exam and ultrasound by her OB physician. That physician sent off Kleihauer-Betke test which is pending. Plan will be follow-up. Due to the patient being seen by her physician I do not think comprehensive evaluation by myself will add to this. Lab Data Attestation: I reviewed the patient's lab results. Labs: Laboratory Results - last 24 hr 03/19/23 21:29 WBC 9.2 RBC 3.97 L Hgb 13.0 Hct 36.9 L MCV 92.9 MCH 32.7 H MCHC 35.2 RDW Std Deviation 41.6 RDW Coeff of Zuleima 12.0 Plt Count 246 MPV 9.8 Immature Gran % (Auto) 0.300 Neut % (Auto) 65.7 Lymph % (Auto) 23.2 [place] % (Auto) 7.6 Eos % (Auto) 2.9 Baso % (Auto) 0.3 Absolute Neuts (auto) 6.0 Absolute Lymphs (auto) 2.13 Nucleated RBC % 0 Sodium 136 Potassium 3.5 Chloride 106 Carbon Dioxide 24.0 Anion Gap 6 BUN 13 Creatinine 0.53 L Estim Creat Clear Calc 132.71 Est GFR (MDRD) Af Amer 173 Est GFR (MDRD) Non-Af 143 BUN/Creatinine Ratio 24.6 H Glucose 89 Calcium 9.5 HCG, Quant 68494 H Discharge Plan Triage Chief Complaint: Vag Bld, Preg ED Provider: Jeffrey Driscoll Dx/Rx/DC Orders Clinical Impression: Vaginal bleeding during Instructions: Bleeding During Early Prescriptions: No Action lamotrigine [Lamictal] 100 mg tablet 100 mg PO QHS PNV-DHA 27 mg iron-1 mg -300 mg capsule 1 cap PO DAILY bupropion HCl [Wellbutrin XL] 150 mg tablet extended release 24 hr 450 mg PO QAM ondansetron HCl 4 mg tablet 4 mg PO Q6H PRN (Reason: nausea and vomiting) Qty: 30 3RF progesterone micronized 100 mg insert 200 mg vaginal BID 70 Days Qty: 21 5RF Primary Care Provider: Hammad Barnett Referrals: Hammad Barnett MD [Primary Care Provider] - Samia Parham DO [Med Staff - Active Staff] - 3-5 Days Disposition Disposition: Home, Self Care Discharge Date/Time: 03/19/23 22:31
[2023-03-19 22:04] VITALS: PULSE 75; RESP 16; O2SAT 99
== END 2023-03-19 22:31 | disposition home or self-care (01) ==
LOC: ED 22:12
PROVIDERS: Obstetrics & Gynecology; Emergency Provider Emergency Medicine; PCP Family Medicine; Visit Provider Emergency Medicine
DX: O20.9 Hemorrhage in early pregnancy, unspecified (principal); Z3A.13 13 weeks gestation of pregnancy
CPT/HCPCS: 36415; 80048; 84702; 85025; 85460; 99282

== ENCOUNTER → 2023-07-07 | Outpatient (CLI) | payer OTHER, SELFPAY ==
--- OUTSIDE RECORDS SUMMARY | 2023-07-07 08:45 | XMS RPT_ITS | CCD ---
Author Name Unknown Address [address] [place] [address] Organization [facility] Care Team Providers Care Airline Pilot Name Role Phone STEVEN SWANSON Attending Unavailable DANYELL SHORT Referring UnavailGLORIA Nolasco Primary Care Unavailable SYD STUART Primary Care Unavailable DANYELL SHORT Referring Unavailab STEVEN Jaeger Attending Unavailable Encounters Encounter Date Encounter Type Care Provider Facility Start: 07-01-2023 End: 07-01-2023 ambulatory STEVEN SWANSON [facility] Start: 05-04-2023 End: 05-04-2023 ambulatory SYD STUART [facility] Payers Date Payer Category Payer Unknown [id number] 2.16. [id number] 1990 Unknown [id number] 2.16. [id number] Unknown [id number] Summary Purpose Family History No Family History Records Found Advance Directives No Advanced Directives Records Found Additional Source Comments INFORMATION SOURCE (unrecogn ized section and content) FOR RECORDS PERTAINING TO PATIENTS WHO ARE OR HAVE BEEN ENROLLED IN A CHEMICAL DEPENDENCY/SUBSTANCEABUSE PROGRAM, SOME INFORMATION MAY BE OMITTED. This clinical summary was aggregated from multiple sources. Caution should be exercised in using it in the provision of clinical care. This summary normalizes information from multiple sources, and as a consequence, information in this document may materially change the coding, format and clinical context of patient data. In addition, data may be omitted in some cases. CLINICAL DECISIONS SHOULD BE BASED ON THE PRIMARY CLINICAL RECORDS. [facility] [employer] provides no warranty or guarantee of the accuracy or completeness of information in this document.
[2023-07-07 09:36] LABS: Absolute Lymphocyte Count 1.93 X10^3/uL (0.83-4.51); Absolute Neutrophil Count 6.4 X10^3/uL (2.0-7.7); Basophil# 0.03 X10^3/uL; Basophil% 0.3 % (0-1); Eosinophil# 0.16 X10^3/uL; Eosinophils% 1.8 % (0-5); Hematocrit 34.2 % (37-47); Hemoglobin 11.6 g/dL (12.0-15.0); Lymphocyte # 1.93 X10^3/ul (0.83-4.51); Lymphocyte % 21.2 % (19-41); Mean Corp Hgb Conc 33.9 g/dL (32-36); Mean Corpuscular Hgb 32.1 pg (27.0-32.0); Mean Corpuscular Volume 94.7 fL (81-99); Mean Platelet Vol. 9.5 fl (6.2-12.0); Monocyte# 0.54 X10^3/uL; Monocyte% 5.9 % (0-10); NRBC Flagged by Analyzer 0 % (0-5); Neutrophil # 6.36 X10^3/uL (2.7-7.7); Neutrophil % 69.8 % (47-70); Platelet Count 272 K/mm3 (150-450); RBC Distribution Width CV 12.7 % (11.6-14.6); Red Blood Count 3.61 M/mm3 (4.2-5.4); White Blood Count 9.1 K/mm3 (4.4-11.0)
[2023-07-07 10:27] LABS: Glucose Challenge Gest 1H 50g 146 mg/dL (70-140)
[2023-07-07 12:58] LABS: HIV - WCH Non-Reactive (Nonreactive); Syphilis Antibodies Non-reactive
== END | disposition home or self-care (01) ==
LOC: LAB 08:23
PROVIDERS: PCP Family Medicine; Visit Provider Obstetrics & Gynecology
DX: O26.899 Other specified pregnancy related conditions, unspecified trimester (principal); Z67.91 Unspecified blood type, Rh negative; Z3A.00 Weeks of gestation of pregnancy not specified
CPT/HCPCS: 36415; 82950; 85025; 86703; 86780; 86850; 86900; 86901

== ENCOUNTER → 2023-07-27 | Outpatient (CLI) | payer OTHER, SELFPAY ==
[2023-07-27 10:15] LABS: Glucose GTT-Gestational 1 Hr 164 mg/dL (<190)
[2023-07-27 10:21] LABS: Glucose GTT-Gestation. Fasting 80 mg/dL (<105)
--- OUTSIDE RECORDS SUMMARY | 2023-07-27 10:38 | XMS RPT_ITS | CCD ---
Author Name Unknown Address [address] [place] [address] Organization [facility] Care Team Providers Care Dental Technology Advisor Name Role Phone STEVEN SWANSON Attending Unavailable DANYELL SHORT Referring UnavailGLORIA Nolasco Primary Care Unavailable SYD STUART Primary Care Unavailable DANYELL SHORT Referring Unavailab STEVEN Jaeger Attending Unavailable Encounters Encounter Date Encounter Type Care Provider Facility Start: 07-01-2023 End: 07-01-2023 ambulatory STEVEN SWANSON [facility] Start: 05-04-2023 End: 05-04-2023 ambulatory SYD STUART [facility] Payers Date Payer Category Payer Unknown [id number] 2.16. [id number] 1990 Unknown [id number] 2.16. [id number] Unknown [id number] Summary Purpose Family History No Family History [...] BE BASED ON THE PRIMARY CLINICAL RECORDS. [facility] [employer] provides no warranty or guarantee of the accuracy or completeness of information in this document.
--- OUTSIDE RECORDS SUMMARY | 2023-07-27 10:38 | XMS RPT_ITS | CCD ---
Author Name Unknown Address [address] [place] [address] Organization [facility] Care Team Providers Care Maintenance Associate Name Role Phone STEVEN SWANSON Attending Unavailable DANYELL SHORT Referring UnavailGLORIA Nolasco Primary Care Unavailable SYD STUART Primary Care Unavailable DANYELL SHORT Referring Unavailab STEVEN Jaeger Attending Unavailable Encounters Encounter Date Encounter Type Care Provider Facility Start: 07-01-2023 End: 07-01-2023 ambulatory STEVEN SWANSON [facility] Start: 05-04-2023 End: 05-04-2023 ambulatory SYD STUART [facility] Payers Date Payer Category Payer Unknown [id number] 2.16. [id number] 1990 Unknown [id number] 2.16. [id number] Unknown [id number] Summary Purpose Family History No Family History [...] BE BASED ON THE PRIMARY CLINICAL RECORDS. [facility] [employer] provides no warranty or guarantee of the accuracy or completeness of information in this document.
[2023-07-27 10:47] LABS: Glucose GTT-Gestational 2 Hr 146 mg/dL (<165)
[2023-07-27 11:58] LABS: Glucose GTT-Gestational 3 Hr 149 L (<145)
== END | disposition home or self-care (01) ==
LOC: LAB 10:14
PROVIDERS: PCP Family Medicine; Referring Provider Nurse Practitioner Women's Health; Visit Provider Nurse Practitioner Women's Health
DX: Z13.1 Encounter for screening for diabetes mellitus (principal)
CPT/HCPCS: 36415; 82951; 82952

== ENCOUNTER → 2023-08-12 | Outpatient (CLI) | payer OTHER, SELFPAY ==
--- OUTSIDE RECORDS SUMMARY | 2023-08-12 11:11 | XMS RPT_ITS | CCD ---
Author Name Unknown Address [address] [place] [id number] Organization [facility] Care Team Providers Care Ladle Cleaner Name Role Phone STEVEN SWANSON Attending Unavailable DANYELL SHORT Referring UnavailGLORIA Nolasco Primary Care Unavailable SYD STUART Primary Care Unavailable DANYELL SHORT Referring Unavailab STEVEN Jaegre Attending Unavailable Encounters Encounter Date Encounter Type Care Provider Facility Start: 07-01-2023 End: 07-01-2023 ambulatory STEVEN SWANSON [facility] Start: 05-04-2023 End: 05-04-2023 ambulatory SYD STUART [facility] Payers Date Payer Category Payer Unknown [id number] 2.16. [id number] 1990 Unknown [id number] 2.16. [id number] Unknown [id number] Summary Purpose Family History No Family History [...] BE BASED ON THE PRIMARY CLINICAL RECORDS. [facility] [employer] provides no warranty or guarantee of the accuracy or completeness of information in this document.
[2023-08-12 11:47] LABS: T4 Free Direct 0.95 ng/dL (0.76-1.46); Thyroid Stim Hormone (TSH) 1.72 uIU/mL (0.358-3.74)
== END | disposition home or self-care (01) ==
LOC: LAB 09:53
PROVIDERS: PCP Family Medicine; Referring Provider Obstetrics & Gynecology; Visit Provider Obstetrics & Gynecology
DX: E07.9 Disorder of thyroid, unspecified (principal)
CPT/HCPCS: 36415; 84439; 84443

== ENCOUNTER → 2023-08-16 | Outpatient (CLI) | payer OTHER, SELFPAY ==
--- NOTE | 2023-08-16 08:49 | US_ITS ---
STUDY: SECOND AND THIRD TRIMESTER OBSTETRICAL ULTRASOUND - LIMITED REASON FOR EXAM: Female, 33 years old growth LMP: December 20, 2022. PRIOR ULTRASOUND: Comparison is made with prior study February 09, 2023. TECHNIQUE: Transabdominal TECHNICAL QUALITY: Adequate. FINDINGS: There is a single intrauterine fetus. The fetus is in a cephalic presentation. There is demonstrated cardiac activity with a heart rate of 138 bpm. There is a normal amniotic fluid volume. The largest amniotic fluid pocket measures 4.25 cm. The amniotic fluid index (ARTHUR) is 13.5 cm. The placenta is posterior and fundal in location. There are Grade 1 placental changes. The cervix was not measured due to head position. BIOMETRY: BPD: 8.56 cm: 34 weeks, 3 days HC: 31.01 cm: 34 weeks, 5 days AC: 30.25 cm: 34 weeks, 1 days FL: 6.66 cm: 34 weeks, 2 days Age by LMP: 34 weeks, 1 days. JUAN by LMP: September 26, 2023. age by prior US: 33 weeks, 4 days. JUAN by prior US: September 30, 2023. age by current US: 34 weeks, 3 days. JUAN by current US: September 24, 2023. Estimated weight: 2419 grams, +/- 363 grams, 52 percentile. US/OB Limited With Biometrics IMPRESSION: Single live intrauterine gestation with a mean gestational age of 33 weeks and 4 days. Measurements obtained today following within the normal expected range. Electronically Signed: Pieter Sam MD at 14:32 EST ,
== END | disposition home or self-care (01) ==
LOC: OPUS 08:48
PROVIDERS: PCP Family Medicine; Referring Provider Obstetrics & Gynecology; Visit Provider Obstetrics & Gynecology
DX: O26.843 Uterine size-date discrepancy, third trimester (principal); Z3A.00 Weeks of gestation of pregnancy not specified
CPT/HCPCS: 76816

== ENCOUNTER → 2023-09-03 | Outpatient (CLI) | payer OTHER, SELFPAY ==
[2023-09-03 11:14] LABS: Absolute Lymphocyte Count 1.55 X10^3/uL (0.83-4.51); Absolute Neutrophil Count 6.9 X10^3/uL (2.0-7.7); Basophil# 0.07 X10^3/uL; Basophil% 0.7 % (0-1); Eosinophil# 0.11 X10^3/uL; Eosinophils% 1.2 % (0-5); Hematocrit 36.6 % (37-47); Hemoglobin 12.3 g/dL (12.0-15.0); Lymphocyte # 1.55 X10^3/ul (0.83-4.51); Lymphocyte % 16.4 % (19-41); Mean Corp Hgb Conc 33.6 g/dL (32-36); Mean Corpuscular Hgb 32.2 pg (27.0-32.0); Mean Corpuscular Volume 95.8 fL (81-99); Mean Platelet Vol. 10.3 fl (6.2-12.0); Monocyte# 0.68 X10^3/uL; Monocyte% 7.2 % (0-10); NRBC Flagged by Analyzer 0 % (0-5); Neutrophil # 6.93 X10^3/uL (2.7-7.7); Platelet Count 210 K/mm3 (150-450); RBC Distribution Width SD 45.5 fl (35.1-43.9); Red Blood Count 3.82 M/mm3 (4.2-5.4); White Blood Count 9.5 K/mm3 (4.4-11.0)
[2023-09-03 11:42] LABS: AST(SGOT) 20 U/L (15-37); Alanine Aminotransfer ALT/SGPT 30 U/L (13-56); Albumin, Serum 3.3 g/dL (3.2-5.0); Alkaline Phosphatase 115 U/L (45-117); Anion Gap 5 (5-15); BUN 9 mg/dL (7-18); BUN/Creat Ratio 14.6 RATIO (10-20); Calcium,Total 9.3 mg/dL (8.5-10.1); Chloride 108 mmol/L (98-107); Creatinine, Serum 0.62 mg/dL (0.55-1.02); EST Glomerular Filtration Rate 119 mL/min (>60); Est Glom Filt Rate - Afr Amer 144 mL/min (>60); Globulin 3.4 g/dL (2.2-4.2); Glucose 85 mg/dL (74-106); Potassium 3.6 mmol/L (3.5-5.1); Protein, Total 6.7 g/dL (6.4-8.2); Sodium Level 138 mmol/L (136-145)
== END | disposition home or self-care (01) ==
PROVIDERS: PCP Family Medicine; Referring Provider Obstetrics & Gynecology; Visit Provider Obstetrics & Gynecology
DX: O99.719 Diseases of the skin and subcutaneous tissue complicating pregnancy, unspecified trimester (principal); L29.9 Pruritus, unspecified; Z3A.00 Weeks of gestation of pregnancy not specified
CPT/HCPCS: 36415; 80053; 85025; 87081

== ENCOUNTER 2023-09-05 07:15 | Inpatient (IN) | payer OTHER, SELFPAY ==
[2023-09-05] VITALS (47 sets, daily range): BP systolic 93–135; BP diastolic 50–77; PULSE 77–101; TEMP 36.3–37.3; O2SAT 95–100; BMI 22.4
--- OUTSIDE RECORDS SUMMARY | 2023-09-05 07:18 | XMS RPT_ITS | CCD ---
Author Name Unknown Address [address] [place] [id number] Organization [facility] Care Team Providers Care Pest Control Supervisor Name Role Phone STEVEN SWANSON Attending Unavailable DANYELL SHORT Referring UnavailGLORIA Nolasco Primary Care Unavailable SYD STUART Primary Care Unavailable DANYELL SHORT Referring Unavailab STEVEN Jaeger Attending Unavailable Encounters Encounter Date Encounter Type Care Provider Facility Start: 07-01-2023 End: 07-01-2023 ambulatory STEVEN SWANSON [facility] Start: 05-04-2023 End: 05-04-2023 ambulatory SYD STUART [facility] Payers Date Payer Category Payer Unknown [id number] 2.16. [id number] 1990 Unknown [id number] 2.16. [id number] Unknown [id number] Summary Purpose Family History No Family History [...] BE BASED ON THE PRIMARY CLINICAL RECORDS. [facility] [employer] provides no warranty or guarantee of the accuracy or completeness of information in this document.
[2023-09-05 08:27] LABS: Absolute Neutrophil Count 6.2 X10^3/uL (2.0-7.7); Basophil# 0.06 X10^3/uL; Basophil% 0.7 % (0-1); Eosinophil# 0.14 X10^3/uL; Eosinophils% 1.6 % (0-5); Hematocrit 33.6 % (37-47); Hemoglobin 11.5 g/dL (12.0-15.0); Mean Corp Hgb Conc 34.2 g/dL (32-36); Mean Corpuscular Hgb 32.3 pg (27.0-32.0); Mean Corpuscular Volume 94.4 fL (81-99); Monocyte# 0.72 X10^3/uL; Monocyte% 8.1 % (0-10); NRBC Flagged by Analyzer 0 % (0-5); Neutrophil # 6.15 X10^3/uL (2.7-7.7); Neutrophil % 68.8 % (47-70); Platelet Count 214 K/mm3 (150-450); RBC Distribution Width CV 12.9 % (11.6-14.6); RBC Distribution Width SD 44.6 fl (35.1-43.9); Red Blood Count 3.56 M/mm3 (4.2-5.4); White Blood Count 8.9 K/mm3 (4.4-11.0)
[2023-09-05] MEDS: 0.9% Normal Saline Single 100 ML IV.SOLN. INTRA-UTER (08:37)
[2023-09-05] MEDS: Lactated Ringers 1,000 ML 50 ML IV (08:37)
--- NOTE | 2023-09-05 08:45 | HP.PCM.OB_ITS ---
HPI - General General Date of Admission: 09/05/23 HPI Narrative ALIA ROSAS, is a 33 y/o @ 37 weeks 0 days who presents to L&D for IOL due to strong suspicion for cholestasis of . She has extreme itching of hands and feet and worsening last few days to legs and arms. LFTs are normal, however the bile acids are still pending. We discussed the risks vs benefits of IOL vs observation until the bile acids came back plus Actigall treatment and patient preferred IOL. Maternal Data Information JUAN Calculator Estimated Delivery Date Method Current WG Current Estimate 09/26/23 LMP (Certain) 37w 0d Other Estimates 09/26/23 Ultrasound #1 37w 0d PFSH PFSH Medical History Anxiety Back pain Depression History of echocardiogram Incomplete Injury of head and neck Loss of consciousness Non-smoker Home Medications lamotrigine 100 mg tablet (Lamictal) 100 mg PO QHS anxiety 06/12/22 [History Last Taken Unknown] multivitamin no.47-iron fum 27 mg-folate no.1 1 mg-dha 300 mg capsule (PNV-DHA) 1 cap PO DAILY 06/12/22 [History Last Taken 09/05/23] bupropion HCl 150 mg 24 hr tablet, extended release (Wellbutrin XL) 450 mg PO QAM Anxiety 02/25/23 [History Last Taken Unknown] ondansetron HCl 4 mg tablet 4 mg PO Q6H PRN nausea and vomiting #30 tabs 04/23/23 [Rx Last Taken Unknown] Allergy/AdvReac Type Severity Reaction Status Date / Time egg Allergy Intermediate Low blood Verified 09/03/23 10:03 pressure Penicillins Allergy Mild Rash Verified 09/03/23 10:03 wheat Allergy Mild Rash Verified 09/03/23 10:03 Family History Aunt Breast cancer, Onset Age: 40 maternal Surgical History Status post dilation and curettage [place] teeth extracted Social History adopted: No household members: spouse housing: house current occupational status: employed 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/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 pets and animals: Yes pets and animals: dog(s) history of recent travel: Yes ([place]) out of state: Yes out of country: No sexually active: Yes Smoking Status: Never smoker alcohol intake: former details: socially prior to substance use type: does not use diet: gluten free and other well-balanced diet: daily or most days caffeine: No eating out: 1-3 times/week during the past year weight has: remained stable what type of physical activity do you participate in: none svitlana/holiness: Nondenominational seatbelt use: always do you feel safe at home: Yes additional social history: Mary Jo Roa History 2 Elective abortions Hx Para 0 Spontaneous abortions 1 Hx # Term Pregnancies Ectopic pregnancies Hx # Pregnancies Multiple births # of living children 0 Past Pregnancies Del. Date Name GA/Weeks Outcome Route Bth Weight Infant Gen Labor Lgth Anesthesia Del Locatn Provider FOB Unknown miscarriage 06/25. 11-12 wks Delivery Date: Last Updated by: Sadia Wild D&C 07/2022. Visit Details Expected Delivery Route/Plan Labor Preferences- CB/BF classes: enc labor support person: derek/65 labor intervention preferences: [] pain management options preferred: [] cut cord/dad catch: [] : not able to PP control planned: [] discussed possible routes of delivery and associated risks: [] special requests: [] Plans Covid status: [] Flu vaccine: obtained Tdap vaccine:obtained Rhogam: obtained 07/07/2023 LARC form signed:completed Problem list reviewed and updated with the most current plan of care details and appropriate orders placed. Relevant counseling for the gestational age provided. Continue routine care and follow up unless otherwise noted in visit notes/problem list details OB Flowsheet Initial Weight: Not Recorded Date -?-?-?-?-?-?-?-?-?-?-?-?- EGA Weight BP Urine Prot -?-?-?-?-?-?-?-?-?-?-?-?- Glucose FHR FuHt Pres Dilation -?-?--?-?-?-?-?-?-?-?-?-?- Effaced St Visit Note 02/04/23 -?-?-?-?-?-?-?-?-?-?-?-?- 6w 4d 118 lb 129/76 -?-?-?-?-?-?-?-?-?-?-?-?- -?-?-?-?-?-?-?-?-?-?-?-?- JV- pt had ultra sound 2 days ago at [facility]. She was bleeding until yesterday when she started the progesterone. CRL was consistent with 6 weeks 2 days and there was a heart rate of 99. plan for zofran for nausea and return for NIPT/carrier screen pack. rpt ultrasound wednesday or wednesday next week. 02/25/23 -?-?-?-?-?-?-?-?-?-?-?-?- 9w 4d 117 lb 6 oz 118/74 Nega tive -?-?-?-?-?-?-?-?-?-?-?-?- Negative 150 -?-?-?-?-?-?-?-?-?-?-?-?- JV- CRL measurin g appropriate today. bleeding has slowed down. ordering NIPT 03/26/23 -?-?-?-?-?-?-?-?-?-?-?-?- 13w 5d 121 lb 128/54 Negative -?-?-?-?-?-?--?-?-?-?-?-?- Negative 155 -?-?-?-?-?-?-?-?-?-?-?-?- JV- measuring ap propriate for GA. no complaints, bleeding stopped. normal NIPT 04/23/23 -?-?-?-?-?-?-?-?-?-?-?-?- 17w 5d 124 lb 8 oz 117/64 Nega tive -?-?-?-?-?-?-?-?-?-?-?-?- Negative 157 -?-?-?-?-?-?-?-?-?-?-?-?- JV- no cramping or bleeding. anatomy scan is ordered with MFM. 05/19/23 -?-?-?-?-?-?-?-?-?-?-?-?- 21w 3d 125 lb 4 oz 132/87 Nega tive -?-?-?-?-?-?-?-?-?-?-?-?- Negative 150 -?-?-?-?-?-?-?-?-?-?-?-?- JV- anatomy show s low lying placenta. pt is avoiding intercourse until follow up us at 28 weeks. 06/14/23 -?-?-?-?-?-?-?-?-?-?-?-?- 25w 1d 130 lb 6 oz 128/77 Nega tive -?-?-?-?-?-?-?-?-?-?-?-?- Negative 157 25 -?-?-?-?-?-?-?-?-?-?-?-?- JV- no complaint s today. good movement. having a lot of nausea still. no further bleeding. 28 week labs ordered 07/07/23 -?-?-?-?-?-?-?-?-?-?-?-?- 28w 3d 132 lb 8 oz 119/66 Nega tive -?-?--?-?-?-?-?-?-?-?-?-?- Negative 155 27 -?-?-?-?-?-?-?-?-?-?-?-?- LC-no complaints . no vb/ctx/lof. good fm. tdap.larc and rhogam provided. 28 week labs pending. 07/26/23 -?-?-?-?-?-?-?-?-?-?-?-?- 31w 1d 133 lb 8 oz 118/63 Nega tive -?-?-?-?-?-?-?-?-?-?-?-?- Negative 150 29.5 -?-?-?-?-?-?-?-?-?-?-?-?- LC-no vb/ctx/lof .good fm. 3 hour glucose scheduled for tomorrow. 08/12/23 -?-?-?-?-?-?-?-?-?-?-?-?- 33w 4d 136 lb 111/64 Negative -?-?-?-?-?-?-?-?-?-?-?-?- Negative 145 30 -?-?-?-?-?-?-?-?-?-?-?-?- SM- no vb lof go od fm n oreuglar ctx ordered growth US SM- no vb lof good fm n oreu glar ctx ordered growth US ordered thryoid labs 08/24/23 -?-?-?-?-?-?-?-?-?-?-?-?- 35w 2d 137 lb 114/74 Negative -?-?-?-?-?-?-?-?-?-?-?-?- Negative 145 32 -?-?-?-?-?-?-?--?-?-?-?-?- KW- no vb/lof/re gular ctx. good fm. growth was 52 % 09/03/23 -?-?-?-?-?-?-?-?-?-?-?-?- 36w 5d 138 lb 4 oz 126/82 Nega tive -?-?-?-?-?-?-?-?-?-?-?--?- Negative 143 34 Cephalic 1 -?-?-?-?-?-?-?-?-?-?-?-?- 50 -3 JV- itchin g of hands and feet and restless legs at night. ordering bile acids. growth 2 weeks ago normal ARTHUR today is 13. gbs collected. if worsening symptoms of itching may just deliver this weekend. ROS Constitutional Constitutional: Denies change in weight, fatigue, fever(s), headache(s), poor appetite or weakness Eyes Eyes: Denies blurry vision, change in vision, seeing flashes or spots in vision ENT HEENT: Denies dizziness, headache(s), loss taste/smell or sore throat Cardiovascular Cardiovascular: Denies chest pain, dizziness, dyspnea, irregular heart rhythm, leg edema, palpitations, rapid heart rate or vomiting Respiratory/Chest Respiratory/Chest: Denies chest tightness, cough, dyspnea or breast pain Gastrointestinal Gastrointestinal: Denies abdominal pain, anorexia, constipation, cramping, diarrhea, hemorrhoids, vomiting or weight changes Genitourinary Genitourinary: Denies dysuria, flank pain, genital lesions, genital pain, urinary frequency or urinary urgency Musculoskeletal Musculoskeletal: Denies back pain, difficulty walking, joint pain, limited range of motion, muscle cramps or numbness Integumentary Integumentary: Denies lesions or unusual bruising Neurologic Neurologic: Denies abnormal movements, abnormal speech, dizziness, numbness, seizure-like activity or syncope Psychiatric Psychiatric: Denies anxiety, behavioral changes, change in appetite, change in libido, cognitive impairment, confusion, depression, difficulty concentrating, hallucinations or suicidal thoughts Endocrine Endocrinology: Denies excessive sweating, polydipsia or polyuria Hematologic/Lymphatic Hematologic/Lymphatic: Denies easy bleeding, easy bruising or lymphadenopathy Allergic/Immunologic Allergic/Immunologic: Denies itchy eyes, lip swelling, seasonal rhinorrhea, rhinitis, throat swelling, tongue swelling, eczemia, wheezing or asthma Vital Signs Vital Signs Vital Signs: Weight Weight: 139 lb 4 oz Body Mass Index (BMI) 22.4 Physical Exam Const alert, oriented x3, no apparent distress and healthy appearing General Appearance: cooperative; Negative for anxious HEENT normocephalic Face and Sinus: normal facial exam Eyes EOMs intact bilaterally and no scleral icterus General Eye: normal appearance of both eyes Neck full ROM and supple Lymph Lymphatic: no lymphadenopathy noted Chest Chest: abnormal inspection of the chest Resp normal respiratory effort Effort and Inspection: able to speak in complete sentences Cardio regular rate GI soft to palpation and non-tender Inspection: gravid Palpation: soft; Negative for tender external exam normal Manual OB Exam: other massey catheter inserted into the cervix and inflated with 50 cc NS. The massey is already making it's way out of the cervix as effacement is 70%. current dilation after bulb insertion is 2/70/-2 Back/Spine no CVA tenderness Extremity normal to inspection, full ROM and no clubbing, cyanosis or edema General Extremity: Negative for calf tenderness or edema Skin Lesions: no lesions Rashes: no rashes Psych mental status grossly normal Labs Labs Labs: Blood Type O NEGATIVE Antibody Screen NEGATIVE Hct 33.6 % (37-47) L Hgb 11.5 g/dL (12.0-15.0) L Obstetrics Ultrasound Syphilis Total Ab Non-reactive Rubella IgG Antibody Reactive (Nonreactive) Hep Bs Antigen Non-Reactive (Nonreactive) Hepatitis C Antibody Non-Reactive (Nonreactive) HIV 1&2 Antibody Non-Reactive (Nonreactive) Glucose 1 Hr 50 gm 146 mg/dL (70-140) H Gest Glucose Tolerance MG/DL Miscellaneous Test Pending Assessment & Plan (1) Cholestasis during : (2) Itching: (3) Uterine size-date discrepancy, third trimester: COMMENT: growth uS ordered- 52% arthur 13 (4) Abnormal glucose affecting : COMMENT: nl 3 hr GTT (5) Rh negative status during : COMMENT: Rhogam at 28 weeks and PRN received rhogam 1st trimester for bleeding-01/29/23 +antibody due to rhogam (6) Supervision of high-risk : COMMENT: PRR , JUAN 09/26/23 girl Reymundo (7) : QUALIFIERS: Weeks of gestation: 36 weeks Qualified Code(s): Z3A.36 - 36 weeks gestation of COMMENT: genetic low risk carrier negative ntd not done. nl anatomy. (8) Psoriasis: COMMENT: steroid cream PRN (9) Thyroid disorder: COMMENT: pt to see Dr. Mckeon first trimester. may be subclinical. labs q trimester (10) Depression: COMMENT: wellbutrin, lamictal, not planning . PLAN: Plan Patient presents IOL, plan management for with massey + pitocin and then AROM later today Pain management: plans epidural. GBS pending RH neg. Management of any complications: cholestasis of - r/b/a discussed for IOL vs observation and patient would like ot proceed with IOL af ter reviewing risks of cholestasis I have reviewed the [facility] and made any clinically relevant updates.
[2023-09-05] MEDS: Oxytocin 15 Units/NS 250ml 15 UNITS/250 ML IV.SOLN 2 UNITS IV (09:07)
[2023-09-05 09:20] LABS: Syphilis Antibodies Non-reactive
[2023-09-05] MEDS: LACTATED RINGERS 500 ML 999 ML IV ×3 (10:42→19:11)
--- NOTE | 2023-09-05 11:56 | PN.OBGYN_ITS ---
Subjective Subjective pt is sitting up in bed comfortable. massey is out and she consents to AROM. current tracing: FHT: Moderate variability reactive no decelerations category I tracing [place]: q 2 min Contractions cx: 5/70/-2, membranes ruptured and clear fluid returned A/P: cholestasis of - IOL continue with pitocin epidural prn. Objective Data Objective Data Vital Signs: Vital Signs Temp Pulse BP Pulse Ox 99.0 F 78 132/63 H 98 09/05/23 10:47 09/05/23 10:47 09/05/23 10:47 09/05/23 10:47 Weight: 139 lb 4 oz Body Mass Index (BMI) 22.4 Intake & Output: Intake and Output for Last 24 Hours 09/03/23 09/04/23 09/05/23 23:59 23:59 23:59 Intake Total 81.47 / 81.47 Balance 81.47 / 81.47 Lab / Micro Data 09/05/23 08:15 Labs: Laboratory Results - last 24 hr 09/05/23 08:15: WBC 8.9, RBC 3.56 L, Hgb 11.5 L, Hct 33.6 L, MCV 94.4, MCH 32.3 H, MCHC 34.2, RDW Std Deviation 44.6 H, RDW Coeff of [place] 12.9, Plt Count 214, MPV 10.0, Immature Gran % (Auto) 1.800 H, Neut % (Auto) 68.8, Lymph % (Auto) 19.0, [place] % (Auto) 8.1, Eos % (Auto) 1.6, Baso % (Auto) 0.7, Absolute Neuts (auto) 6.2, Absolute Lymphs (auto) 1.70, Nucleated RBC % 0, Syphilis Total Ab Non-reactive, Blood Type O NEGATIVE, Antibody Screen POSITIVE, Antibody Identification ANTI-D
[2023-09-05] MEDS: fentaNYL-bupivacaine (epidural) 100 ML BAG EPIDURAL ×2 (15:48→20:30)
--- NOTE | 2023-09-05 16:53 | PCM.PN.BLA ---
Progress Note pt is comfortable with epidural. feeling some pain that is mild. 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
[2023-09-05] MEDS: 0.9% Saline Lock 10 ML Syringe IV (17:05)
[2023-09-05] MEDS: Ondansetron 4 MG/2 ML Vial IV (17:05)
--- NOTE | 2023-09-05 18:56 | PCM.PN.BLA ---
Progress Note pt vomited when moved to sitting up. She states feels better now. current tracing: FHT:Bl 120 Moderate variability reactive no decelerations category I tracing [place]: q 2 min cx: slightly more edematous but is 6/70/0, MVU's are 200's reviewed tracing abnormalities since last note: couple of early decelerations prior to exam, otherwise still moderate variability, cat 1 overall A/P: continue pitocin and position change as needed
[2023-09-05] MEDS: Lactated Ringers 1,000 ML 200 ML IV (19:01)
[2023-09-05] MEDS: proCHLORPERazine 10 MG/2 ML Vial IV (19:14)
--- NOTE | 2023-09-05 23:19 | EX.PCM.OBRPT ---
Assessment & Plan (1) Cholestasis during : (2) Itching: (3) Uterine size-date discrepancy, third trimester: COMMENT: growth uS ordered- 52% viri 13 (4) Abnormal glucose affecting : COMMENT: nl 3 hr GTT (5) Rh negative status during : COMMENT: Rhogam at 28 weeks and PRN received rhogam 1st trimester for bleeding-01/29/23 +antibody due to rhogam (6) Supervision of high-risk : COMMENT: PRR , JUAN 09/26/23 girl Reymundo (7) : QUALIFIERS: Weeks of gestation: 36 weeks Qualified Code(s): Z3A.36 - 36 weeks gestation of COMMENT: genetic low risk carrier negative ntd not done. nl anatomy. (8) Psoriasis: COMMENT: steroid cream PRN (9) Thyroid disorder: COMMENT: pt to see Dr. Mckeon first trimester. may be subclinical. labs q trimester (10) Depression: COMMENT: wellbutrin, lamictal, not planning . Maternal Data Information JUAN Calculator Estimated Delivery Date Method Current WG Current Estimate 09/26/23 LMP (Certain) 37w 0d Other Estimates 09/26/23 Ultrasound #1 37w 0d Gestational age: 37 weeks 0 days Vaginal Delivery Maternal Presentation Maternal Presentation: Medically Indicated Induction Type of Induction: Pitocin, Kyle Bulb and Amniotomy Operative Information Date of Procedure: 09/05/23 Pre-Operative Diagnosis: 33 y/o @ 37 weeks 0 days, clinical suspicion of cholestasis of Post-Operative Diagnosis: 33 y/o @ 37 weeks 0 days, clinical suspicion of cholestasis of Type of Anesthesia: Epidural Anesthesiologist: Garland Cuello Drain: Kyle to straight drain Estimated Blood Loss: 250cc Time of Delivery: 23:06 Findings Description of Procedure: Patient began pushing and delivered the head in the ZOYA presentation. The head was delivered atraumatically. The anterior and posterior shoulders delivered without complication followed by the rest of the and the infant was placed on the maternal abdomen. Delayed cord clamping was employed for approximately 60 seconds. Cord was clamped and cut and gentle traction was applied to the cord and the placenta delivered spontaneously immediately following it was noted to be intact with three-vessel cord. The perineum and vagina were inspected and noted to have a small left vaginal laceration. this was repaired with a figure of 8 3-0 vicryl suture EBL was 250cc. Patient and tolerated delivery well. Presentation: Vertex Amniotic Membrane Rupture Type: Artificial Time of Membrane Rupture: 1200 Amniotic Fluid Description: Clear Placental Delivery Description: Spontaneous Placenta Disposition: [facility] Cord Vessel Description: 3 Vessels Cord Entanglement: None Infant A Gender: Female (1 minute): 9 (5 minute): 9 Delayed Cord Clamping: Yes Post Vaginal Delivery Medications Given After Delivery: IV Pitocin Episiotomy Description: None Laceration: Vaginal Extension/lac Complication Complications: None Multi Select Codes Urinary/Genital Urinary/Genital CPT Codes: 75515 Vaginal Delivery [facility]
--- NOTE | 2023-09-05 23:23 | DCINST_ITS ---
Discharge Instructions Diet Discharge Diet: No restrictions Activity Discharge Activity: Return to Normal Activity, May Not Drive (while taking narcotic pain medications.) and May Shower May resume sexual activity in: 4-6 weeks Dressing / Incision Call your doctor if your incision/area has: Continuous Slow Oozing, Sudden Increased Bleeding, Increased Pain/ Swelling, Increased Redness and Foul Smelling Discharge Follow Up Care Please Follow Up With: Samia Parham, When: Call [phone] to make an appointment with your doctor in 6 weeks. If you had elevated blood pressure or 4th degree laceration, you will need to be seen in 2 weeks. Test Results: Test results from this visit will be discussed in further detail at your follow- up appointment, if applicable. Discharge Plan Admission Admit Date/Time: 09/05/23 07:15 Attending Provider: Samia Parahm Primary Care Provider: Hammad Barnett Discharge Orders/Prescriptions Prescriptions: No Action lamotrigine [Lamictal] 100 mg tablet 100 mg PO QHS PNV-DHA 27 mg iron-1 mg -300 mg capsule 1 cap PO DAILY bupropion HCl [Wellbutrin XL] 150 mg tablet extended release 24 hr 450 mg PO QAM ondansetron HCl 4 mg tablet 4 mg PO Q6H PRN (Reason: nausea and vomiting) Qty: 30 3RF Referrals / Follow Up: Hammad Barnett MD [Primary Care Provider] -
[2023-09-05] MEDS: Oxytocin 15 Units/NS 250ml 15 UNITS/250 ML IV.SOLN 83 UNITS IV (23:41)
[2023-09-06] VITALS (25 sets, daily range): BP systolic 96–122; BP diastolic 51–77; PULSE 70–98; RESP 16; TEMP 36.4–37.2; O2SAT 81–99
[2023-09-06] MEDS: lamoTRIgine 100 MG Tablet PO ×2 (01:16→23:25)
[2023-09-06] MEDS: Ibuprofen 600 MG Tablet PO ×2 (05:37→16:45)
[2023-09-06] MEDS: Rho(D) Immune Globulin 300 MCG (1500 Unit) Syringe IV (06:23)
[2023-09-06] MEDS: 0.9% Saline Lock 10 ML Syringe IV (06:26)
[2023-09-06] MEDS: Acetaminophen 500 MG Tablet 1000 MG PO (10:06)
[2023-09-06] MEDS: buPROPion (XL) 150 MG TABLET.XL 450 MG PO (10:13)
--- NOTE | 2023-09-06 14:26 | PCM.PN.OB ---
Subjective Subjective Patient doing well without complaints. Tolerating PO. Ambulating and voiding without difficulty. Feeding well. Denies chest pain, shortness of breath, calf pain/swelling, fevers, chills, lightheadedness. Objective Data Objective Data Vital Signs: Vital Signs Temp Pulse Resp BP Pulse Ox O2 Del Method 97.8 F 86 16 110/57 L 99 Room Air 09/06/23 12:48 09/06/23 12:48 09/06/23 12:48 09/06/23 12:48 09/06/23 09:30 09/06/23 09:30 Oxygen Delivery Method Room Air Weight: 139 lb 4 oz Body Mass Index (BMI) 22.4 Intake & Output: Intake and Output for Last 24 Hours 09/04/23 09/05/23 09/06/23 23:59 23:59 23:59 Intake Total 3928.97 / 3928.97 250 / 250 Output Total 1350 / 1350 1500 / 1500 Balance 2578.97 / 2578.97 -1250 / -1250 Lab / Micro Data 09/05/23 08:15 Labs: Laboratory Results - last 24 hr 09/06/23 01:30: Screen NEGATIVE, Baby's Blood Type A POSITIVE, Baby's HEATHER NEGATIVE Micro: Microbiology 09/05/23 10:01 Urine, Clean Catch Chlamydia trachomatis (PCR) - Final 09/05/23 10:01 Urine, Clean Catch Neisseria gonorrhoeae (PCR) - Final ROS Constitutional Constitutional: Denies chills, fatigue, fever(s), poor appetite or weakness Eyes Eyes: Denies blurry vision, change in vision, seeing flashes or spots in vision ENT HEENT: Denies dizziness, headache(s), loss taste/smell or sore throat Cardiovascular Cardiovascular: Denies chest pain, dizziness, dyspnea, irregular heart rhythm, palpitations or rapid heart rate Respiratory/Chest Respiratory/Chest: Denies chest tightness, cough, dyspnea or breast pain Gastrointestinal Gastrointestinal: Denies abdominal pain, constipation or vomiting Genitourinary Genitourinary: Denies dysuria or flank pain Musculoskeletal Musculoskeletal: Denies difficulty walking, joint pain, limited range of motion or numbness Neurologic Neurologic: Denies abnormal movements, abnormal speech, dizziness, numbness, seizure-like activity or syncope Psychiatric Psychiatric: Denies anxiety, behavioral changes, change in appetite, confusion, depression or suicidal thoughts Physical Exam Const alert, oriented x3 and no apparent distress General Appearance: cooperative and comfortable Resp normal respiratory effort Cardio regular rate GI normal to inspection, nondistended, normoactive bowel sounds GI Narrative: uterus is firm below umbilicus Palpation: soft Back/Spine no CVA tenderness and thoraco-lumbar ROM normal Extremity normal to inspection, no clubbing, cyanosis or edema, no calf tenderness and no pedal edema Psych mental status grossly normal, thought process normal, cooperative, affect normal, speech normal, activity/motor behavior normal, denies homicidal ideation and denies suicidal ideation Assessment & Plan (1) Cholestasis during : (2) Rh negative status during : COMMENT: Rhogam at 28 weeks and PRN received rhogam 1st trimester for bleeding-01/29/ +antibody due to rhogam (3) Status post vaginal delivery: PLAN: Plan s/p PPD # 1 1. routine post delivery care 2. bottle feeding 3. rh neg-rhogam workup ordered 4. rubella immune
[2023-09-07 03:00] VITALS: BP 114/69; PULSE 77; RESP 15; TEMP 36.9; O2SAT 96
[2023-09-07] MEDS: Ibuprofen 600 MG Tablet PO ×2 (03:17→08:59)
[2023-09-07 08:50] VITALS: BP 114/63; PULSE 83; RESP 16; TEMP 36.9; O2SAT 96
[2023-09-07] MEDS: Senna/Docusate Sodium 1 Tablet PO (08:58)
[2023-09-07 10:00] VITALS: TEMP 36.6
[2023-09-07] MEDS: buPROPion (XL) 150 MG TABLET.XL 450 MG PO (10:07)
--- NOTE | 2023-09-07 13:03 | PCM.PN.OB ---
Subjective Subjective Patient doing well without complaints. Tolerating PO. Ambulating and voiding without difficulty. Feeding well. Denies chest pain, shortness of breath, calf pain/swelling, fevers, chills, lightheadedness. Objective Data Objective Data Vital Signs: Vital Signs Temp Pulse Resp BP Pulse Ox O2 Del Method 98 F 83 16 114/63 96 Room Air 09/07/23 10:00 09/07/23 08:50 09/07/23 08:50 09/07/23 08:50 09/07/23 08:50 09/07/23 08:50 Oxygen Delivery Method Room Air Weight: 139 lb 4 oz Body Mass Index (BMI) 22.4 Intake & Output: Intake and Output for Last 24 Hours 09/05/23 09/06/23 09/07/23 23:59 23:59 23:59 Intake Total 3928.97 / 3928.97 250 / 250 Output Total 1350 / 1350 1500 / 1500 Balance 2578.97 / 2578.97 -1250 / -1250 Lab / Micro Data 09/05/23 08:15 Micro: Microbiology 09/05/23 10:01 Urine, Clean Catch Chlamydia trachomatis (PCR) - Final 09/05/23 10:01 Urine, Clean Catch Neisseria gonorrhoeae (PCR) - Final ROS Constitutional Constitutional: Denies chills, fatigue, fever(s), poor appetite or weakness Eyes Eyes: Denies blurry vision, change in vision, seeing flashes or spots in vision ENT HEENT: Denies dizziness, headache(s), loss taste/smell or sore throat Cardiovascular Cardiovascular: Denies chest pain, dizziness, dyspnea, irregular heart rhythm, palpitations or rapid heart rate Respiratory/Chest Respiratory/Chest: Denies chest tightness, cough, dyspnea or breast pain Gastrointestinal Gastrointestinal: Denies abdominal pain, constipation or vomiting Genitourinary Genitourinary: Denies dysuria or flank pain Musculoskeletal Musculoskeletal: Denies difficulty walking, joint pain, limited range of motion or numbness Neurologic Neurologic: Denies abnormal movements, abnormal speech, dizziness, numbness, seizure-like activity or syncope Psychiatric Psychiatric: Denies anxiety, behavioral changes, change in appetite, confusion, depression or suicidal thoughts Physical Exam Const alert, oriented x3 and no apparent distress General Appearance: cooperative and comfortable Resp normal respiratory effort Cardio regular rate GI normal to inspection, nondistended, normoactive bowel sounds GI Narrative: uterus is firm below umbilicus Palpation: soft Back/Spine no CVA tenderness and thoraco-lumbar ROM normal Extremity normal to inspection, no clubbing, cyanosis or edema, no calf tenderness and no pedal edema Psych mental status grossly normal, thought process normal, cooperative, affect normal, speech normal, activity/motor behavior normal, denies homicidal ideation and denies suicidal ideation Assessment & Plan (1) Status post vaginal delivery: PLAN: Plan s/p PPD # 2 1. routine post delivery care 2. bottle feeding 3. rh neg workup completed 4. rubella immune 5. ok for dc to home today
== END 2023-09-07 11:00 | disposition home or self-care (01) | DRG 805 ==
PROVIDERS: Admitting Provider Obstetrics & Gynecology; PCP Family Medicine; Visit Provider Obstetrics & Gynecology
DX: O26.62 Liver and biliary tract disorders in childbirth (principal); Z37.0 Single live birth; K83.1 Obstruction of bile duct; O71.4 Obstetric high vaginal laceration alone; O99.344 Other mental disorders complicating childbirth; F32.A Depression, unspecified; L40.9 Psoriasis, unspecified; E07.9 Disorder of thyroid, unspecified; O76 Abnormality in fetal heart rate and rhythm complicating labor and delivery; O99.284 Endocrine, nutritional and metabolic diseases complicating childbirth; O99.72 Diseases of the skin and subcutaneous tissue complicating childbirth; Z3A.37 37 weeks gestation of pregnancy; Z79.899 Other long term (current) drug therapy
CPT/HCPCS: 59025; 59050; 85025; 85461; 86780; 86850; 86870; 86900; 86901; 87491; 87591; 90384; 99221; J7120; A4216; G0378; J2405; J2790; J2791

== ENCOUNTER → 2023-10-18 | Outpatient (CLI) | payer OTHER, SELFPAY ==
[2023-10-22 15:08] LABS: HPV APTIMA, High Risk Negative (Negative)
== END | disposition home or self-care (01) ==
LOC: LABSPEC 14:06
PROVIDERS: PCP Family Medicine; Referring Provider Obstetrics & Gynecology; Visit Provider Obstetrics & Gynecology
DX: Z12.4 Encounter for screening for malignant neoplasm of cervix (principal)
CPT/HCPCS: 87624; 88175; G0145

== ENCOUNTER 2025-02-21 15:57 | Outpatient (CLI) | payer OTHER, SELFPAY ==
--- NOTE | 2025-02-21 15:57 | RAD_ITS ---
PROCEDURE: CERV SPINE 4 OR 5 VIEWS 02/21/2025 REASON FOR EXAM: PAIN TECHNIQUE: CERV SPINE 4 OR 5 VIEWS COMPARISON: 09/08/2022 FINDINGS: No evidence of acute fracture or subluxation. Alignment is anatomic. Minimal multilevel spondylotic changes are present with relatively well preserved disc spaces, primarily with hypertrophic facet arthropathy. No evidence for significant osseous neural foraminal narrowing on either side. No prevertebral soft tissue swelling. Imaged lung apices are clear. RAD/Cerv Spine 4 or 5 Views IMPRESSION: No evidence of fracture or malalignment. Minimal spondylotic changes. Reading Location: [id number]
== END 2025-02-21 23:59 | disposition home or self-care (01) ==
LOC: MTRAD 15:57
PROVIDERS: PCP Family Medicine; Referring Provider Nurse Practitioner Family; Visit Provider Nurse Practitioner Family
DX: R20.0 Anesthesia of skin (principal); M79.642 Pain in left hand
CPT/HCPCS: 72050

== ENCOUNTER → 2025-02-26 | Outpatient (CLI) | payer OTHER, SELFPAY ==
--- NOTE | 2025-02-26 07:14 | MRI_ITS ---
PROCEDURE: SPINE CERVICAL (ROUTINE) 02/26/2025 REASON FOR EXAM: PAIN TECHNIQUE: MRI SPINE CERVICAL (ROUTINE). Multiplanar and multisequence images were obtained without IV contrast administration. COMPARISON: Cervical spine series of 02/21/2025. FINDINGS: Vertebrae: Cervical vertebral body heights are preserved. Bone marrow signal is unremarkable. Alignment: Normal. No spondylolisthesis. Spinal Cord: Cervical spinal cord is of normal size and signal intensities. Structures at the foramen magnum are unremarkable. C2-3: Unremarkable C3-4: Asymmetric right uncovertebral joint hypertrophy is seen. A slight disc bulge is noted. No spinal canal stenosis or significant degree of neural foraminal narrowing is seen. C4-5: Minimal uncovertebral joint hypertrophy is seen. A very mild disc bulge/protrusion is seen. No spinal canal stenosis or neural foraminal narrowing is noted. C5-6: A mild broad-based disc protrusion is noted. No significant degree of spinal canal stenosis or neural foraminal narrowing is seen. C6-7: A very mild central disc protrusion is noted. Mild asymmetric right uncovertebral joint hypertrophy is seen. No spinal canal stenosis or neural foraminal narrowing is noted. C7-T1: Unremarkable MRI/Spine Cervical (Routine) IMPRESSION: Mild multilevel cervical degenerative disc disease, as described. Reading Location: [place] [id number]
--- OUTSIDE RECORDS SUMMARY | 2025-02-26 07:20 | XMS RPT_ITS | CCD ---
Author Organization [facility] Care Team Providers Care Gas Operator Name Role Phone Care Physician, No Primary Primary Care Provider Unavailable Care Physician, No Primary Referring Provider Un available Dr. Samia Parham Attending Provider [phone] Dr. Samia Parham Referring Provider [phone] Dr. Samia Parham Other Provider Dr. Gloria Barnett Primary Care Provider Dr. Gloria Barnett Referring Provider Dr. Samia Parham Attending Provider [phone] STEVEN SWANSON Attending Unavailable SAMIA SHORT Referring Nicanorab GLORIA Ramachandran Primary Care Unavailable SYD STUART Primary Care Unavailable SAMIA SHORT Referring Unavailab STEVEN Jaeger Attending Unavailable Dr. Gloria Barnett Primary Care Provider Dr. Gloria Barnett Referring Provider Dr. Samia Parham Attending Provider [phone] MACRINA Miner Attending Provider [phone] Dr. Yoko Alberts Attending Provider [phone] Dr. Gloria Barnett Primary Care Provider Dr. Gloria Barnett Referring Provider [phone] Dr. Samia Parham Attending Provider [phone] MACRINA Monae Attending Provider [phone] Dr. Samia Parham Admit Provider Dr. Samia Parham Other Provider Dr. Gloria Barnett Primary Care Provider Dr. Gloria Barnett Referring Provider MACRINA Miner Attending Provider Dr. Yoko Alberts Attending Provider [phone] MACRINA Monae Attending Provider [phone] Dr. Samia Parham Attending Provider [phone] Dr. Samia Parham Admit Provider Dr. Samia Parham Other Provider Caryl SALES ATTENDANT [employer]ILD[employer], Natalie Referring Unavailable Caryl SALES ATTENDANT [employer]ILD[employer], Natalie Attending Unavailable Gloria Barnett Primary Care Unavailable Gloria Barnett Primary Care Unavailable Caryl SALES ATTEND[employer], Natalie Referring Unavailable Caryl SALES ATTENDANT [employer], Natalie Attending Unavailable Allergies Allergy Classification Reported Allergen(s) Allergy Type Date of Onset Reaction(s) Facility (20 sources) egg extract Drug Allergy 2 Low blood pressure [facility] (20 sources) Penicillins Allergy to substance 2 Rash [facility] (20 sources) Wheat preparation Drug Allergy 2 [facility] (1 source) egg extract Drug Allergy 4 [facility] (1 source) Penicillins Drug allergy (disorder) 4 [facility] (1 source) Wheat preparation Drug Allergy 4 [facility] Medications Current Medications Medication Drug Class(es) Dates Sig (Normalized) Sig (Original) 24 hr buPROPion hydrochloride 150 mg extended release oral tablet (20 sources) Aminoketone Start: 02-25-2023 Bupropion Hcl (Wellbutrin Xl) 150 mg tablet extended release 24 hr Active 450 MG PO EVERY MORNING February 25, 2023 11:42am Start: 06-12-2022 End: 02-25-2023 take 1 tablet by mouth once daily in the morning Bupropion Hcl (Wellbutrin Xl) 150 mg tablet extended release 24 hr Discontinued 150 MG PO EVERY MORNING June 12, 2022 1:00am February 25, 2023 11:42am Start: 06-12-2022 End: 02-25-2023 take 1 tablet by mouth once daily in the morning Bupropion Hcl (Wellbutrin Xl) 300 mg tablet extended release 24 hr Discontinued 300 MG PO EVERY MORNING June 12, 2022 1:00am February 25, 2023 11:42am lamoTRIgine 100 mg oral tablet (20 sources) Mood Stabilizer, Anti-epileptic Agent Start: 06-12-2022 take 1 tablet by mouth at bedtime Lamotrigine (Lamictal) 100 mg tablet Active 100 MG PO AT BEDTIME June 12, 2022 1:00am miSOPROStol 0.2 mg oral tablet (1 source) Prostaglandin E1 Analog Start: 06-24-2022 Misoprostol (Cytotec) 200 mcg tablet Active 800 MCG VAGINAL ONCE June 24, 2022 12:00am Multivit 34-Hkky-Niumpg 1-Dha (Pnv-Dha) 27 mg iron-1 mg -300 mg capsule (20 sources) Start: 06-12-2022 take 1 capsule by mouth once daily Multivit 03-Rmrt-Vynyvb 1-Dha (Pnv-Dha) 27 mg iron-1 mg -300 mg capsule Active 1 CAP PO DAILY June 12, 2022 1:00am Start: 06-12-2022 take 1 capsule by mo [facility] once daily Multivit 35-Pezv-Kevqgw 1-Dha (Pnv-Dha) 27 mg iron-1 mg -300 mg capsule Active 1 CAP PO DAILY June 12, 2022 12:00am Start: 06-12-2022 Multivit 47-Ir on-Folate 1-Dha (Pnv-Dha) 27 mg iron-1 mg -300 mg capsule Active CAP PO June 12, 2022 12:00am Completed/Discontinued Medications Medication Drug Class(es) Dates Sig (Normalized) Sig (Original) acetaminophen 325 mg / oxyCODONE hydrochloride 5 mg oral tablet (20 sources) Opioid Agonist Start: 10-20-2023 End: 10-23-2023 take 1 tablet by mouth every four hours Oxycodone-Acetamino phen (Percocet) 5-325 mg tablet Discontinued 1 TABLET PO Q4H 3 3 October 20, 2023 October 23, 2023 12:17am Start: 07-10-2022 End: 01-28-2023 take 1-2 tablets by mouth every four hours as needed for pain Oxycodone-Acetaminophen (Percocet) 5-325 mg tablet Discontinued 1 TABLET PO Q4H 10 3 July 10, 2022 January 28, 2023 3:28pm 1-2 tabs q 4 hrs as needed for pain modafinil 200 mg oral tablet (20 sources) Sympathomimetic-like Agent Start: 07-09-2022 End: 01-28-2023 take 200 mg by mouth twice daily Modafinil Discontinued 200 MG PO TWICE A DAY July 09, 2022 1:00am January 28, 2023 3:29pm ondansetron 4 mg oral tablet (17 sources) Serotonin-3 Receptor Antagonist Start: 02-04-2023 End: 10-18-2023 take 4 mg by mouth every six hours Ondansetron Hcl Discontinued 4 MG PO EVERY 6 HOURS April 23, 2023 12:17pm October 18, 2023 11:08am progesterone 100 mg vaginal insert (13 sources) Progesterone Start: 02-01-2023 End: 09-05-2023 Progesterone Micronized Discontinued 200 MG VAGINAL TWICE A DAY February 01, 2023 12:00am September 05, 2023 8:46am Problems Active Problems Problem Classification Problem Date Documented Date Episodic/Chronic Contraceptive and procreative management (1 source) Patient encounter status; Translations: [Encounter for insertion of intrauterine contraceptive device] 10-20-2023 Episodic Diabetes or abnormal glucose tolerance complicating ; childbirth; or the puerperium (20 sources) Abnormal glucose level; Translations: [Abnormal glucose complicating ] 07-07-2023 Episodic Hemorrhage during ; abruptio placenta; placenta previa (20 sources) Threatened miscarriage; Translations: [Threatened ] 01-17-2023 Episodic Menstrual disorders (20 sources) Menstrual spotting; Translations: [Excessive and frequent menstruation with regular cycle] 01-28-2023 Chronic Mood disorders (20 sources) Depressive disorder; Translations: [Depression] Chronic Other complications of (17 sources) High risk ; Translations: [Supervision of high risk , unspecified, unspecified trimester] 01-28-2023 Episodic Other complications of (20 sources) Supervision of high risk , unspecified, unspecified trimester; Translations: [Supervision of unspecified high-risk ] Episodic Other complications of (14 sources) H/O: miscarriage; Translations: [Supervision of with other poor reproductive or obstetric history, unspecified trimester] 01-28-2023 Episodic Other complications of (14 sources) RhD negative; Translations: [Other specified related conditions, unspecified trimester] 01-29-2023 Episodic Other complications of (20 sources) Supervision of with other poor reproductive or obstetric history, unspecified trimester; Translations: [Supervision of high-risk with history of ] 02-04-2023 Episodic Other complications of (20 sources) Other specified related conditions, unspecified trimester; Translations: [Other specified complications of , antepartum condition or complication] 02-04-2023 Episodic Other complications of (5 sources) Uterine size for dates discrepancy; Translations: [Uterine size-date discrepancy, third trimester] 08-12-2023 Episodic Other complications of (4 sources) Cholestasis of ; Translations: [Liver and biliary tract disorders in , unspecified trimester] 09-05-2023 Episodic Other complications of (9 sources) Uterine size-date discrepancy, third trimester; Translations: [Uterine size date discrepancy, antepartum condition or complication] 08-24-2023 Episodic Other complications of (2 sources) Liver and biliary tract disorders in , unspecified trimester; Translations: [Liver and biliary tract disorders in , unspecified as to episode of care or not applicable] 09-07-2023 Episodic Other female genital disorders (6 sources) History of past delivery; Translations: [Status post vaginal delivery] 09-06-2023 Episodic Other inflammatory condition of skin (14 sources) Psoriasis; Translations: [Psoriasis, unspecified] 01-28-2023 Chronic Other inflammatory condition of skin (20 sources) Psoriasis, unspecified; Translations: [Other psoriasis] 02-04-2023 Chronic Other inflammatory condition of skin (3 sources) Itching ; Translations: [Pruritus, unspecified] 09-03-2023 Episodic Other inflammatory condition of skin (6 sources) Pruritus, unspecified; Translations: [Unspecified pruritic disorder] 09-03-2023 Episodic Other nervous system disorders (1 source) Anesthesia of skin; Translations: [Anesthesia of skin] Onset: 02-21-2025 Episodic Other and delivery including normal (20 sources) ; Translations: [Encounter for supervision of normal , unspecified, unspecified trimester] Episodic Spondylosis; intervertebral disc disorders; other back problems (1 source) Radiculopathy, cervical region; Translations: [Radiculopathy, cervical region] Onset: 02-23-2025 Episodic Spontaneous (20 sources) with abortive outcome; Translations: [Incomplete spontaneous without complication] Episodic Thyroid disorders (20 sources) Disorder of thyroid gland; Translations: [Disorder of thyroid, unspecified] 01-27-2023 Episodic Past or Other Problems Problem Classification Problem Date Documented Da te Episodic/Chronic Unclassified (20 sources) Infertile; Translations: [Infertility] 01-28-2023 Results Test Name Value Interpretation Reference Range Facility Cerv Spine 4 or 5 Viewson Cerv Spine 4 or 5 Views [facility] Imaging Services [address] [place] [address] Cerv Spine 4 or 5 Views MR#: [id number] Acct: [id number] Name: ALIA ROSAS Rep #: [id number] : 1990 F 34 From: Jacek Donald MD PCP: Dr. Gloria Barnett MD Status: REG CLI Study: Cerv Spine 4 or 5 Views Date of Exam: 02/21/25 Exam# [id number] Ordering Dr: Natalie Hutson NP SALES ATTENDANT [employer] PROCEDURE: CERV SPINE 4 OR 5 VIEWS 02/21/2025 REASON FOR EXAM: PAIN TECHNIQUE: CERV SPINE 4 OR 5 VIEWS COMPARISON: 09/08/2022 FINDINGS: No evidence of acute fracture or subluxation. Alignment is anatomic. Minimal multilevel spondylotic changes are present with relatively well preserved disc spaces, primarily with hypertrophic facet arthropathy. No evidence for significant osseous neural foraminal narrowing on either side. No prevertebral soft tissue swelling. Imaged lung apices are clear. RAD/Cerv Spine 4 or 5 Views IMPRESSION: No evidence of fracture or malalignment. Minimal spondylotic changes. Reading Location: [id number] CC: SALES ATTENDANT [employer]ILD[employer]-C Natalie Hutson; Dr. Gloria Barnett MD Newspaper Photographer: Signed Normal [facility] Cervical or vaginal specimen microscopic examination by liquid based cytology (reportOrdered By: Samia Bradley on 10-18-2023 Cytology report Cyto stain.thin prep Doc (Cvx/Vag) Comment . [facility] Comment on above: Criteria not met, HP V Genotype not performed.Performed at: - [facility] [id number] Director: Morena Chery MD, Phone: [phone] at: = - [facility] [id number] Director: Morena Chery MD, Phone: [phone] Cervical or vagninal specime n microscopic examination by cytology stain (reported asOrdered By: Samia Bradley on 10-18-2023 Cytology report Cyto stain Doc (Cvx/Vag) Comment . [facility] Comment on above: The Pap smear is a s creening test designed to aid in thedetection of premalignant and malignant conditions of theuterine cervix. It is not a diagnostic procedure andshould not be used as the sole means of detecting cervicalcancer. Both false-positive and false-negative reports dooccur. Detection in cervical specim en of any of human papilloma virus (HPV) 16, 18, 31, 33,Ordered By: Samia Bradley on 10-18-2023 HPV 16+18+31+33+35+39+45+51+ 52+56+58+59+66+68 DNA Probe+sig amp Ql (Cvx) Negative Negative [facility] Comment on above: This nucleic acid am plification test detects fourteen high-risk HPV types (16,18,31,33,35,39,45,51,52,56,58,59,66,68)without differentiation. Laboratory - CytologyOrdered By: Samia Bradley on 10-18-2023 Product Safety Tester Cyto stain Nom (Cvx/Vag) [ID] Comment . [facility] Comment on above: Laureano Ling otechnologist (ASCP) Laboratory - Miscellaneous t estsOrdered By: Samia Bradley on 10-18-2023 Service comment (Unsp spec) [Interp] . . [facility] Thin prep Papanicolaou smear with manual screeningOrdered By: Samia Bradley on 10-18-2023 Thin prep Papanicolaou smear with manual screening Comment . [facility] Comment on above: NEGATIVE FOR INTRAEP ITHELIAL LESION OR MALIGNANCY.SPECIMEN REPROCESSED FOR INTERPRETATION. Thin prep Papanicolaou smear with manual screening NHP [facility] Comment on above: Test not performedTh e Thin Prep(R) Spreading Machine Operator was unable to read this specimen.Therefore a manual review was performed. Absolute lymphocyte countOrd ered By: Samia Bradley on 09-05-2023 Lymphocytes Auto (Unsp spec) [#/Vol] 1.70 10*3/uL 0.83-4.51 [facility] Automated lymphocyte count a s percentage of total leukocytesOrdered By: Samia Bradley on 09-05-2023 Lymphocytes/100 WBC Auto (Unsp spec) 19.0 % 19-41 [facility] Basophil percentageOrdered B y: Samia Bradley on 09-05-2023 Basophils/100 WBC (Bld) 0.7 % 0-1 [facility] Eosinophils/100 WBC (Bld) 1.6 % 0-5 [facility] Hemoglobin (Bld) [Mass/Vol] 11.5 g/dL 12.0-15.0 [facility] Monocytes/100 WBC (Bld) 8.1 % 0-10 [facility] Neutrophils (Bld) [#/Vol] 6.2 10*3/uL 2.0-7.7 [facility] Neutrophils/100 WBC (Bld) 68.8 % 47-70 [facility] WBC (Bld) [#/Vol] 8.9 10*3/uL 4.4-11.0 [facility] Determination of erythrocyte mean corpuscular volume (MCV)Ordered By: Samia Bradley on 09-05-2023 MCV (RBC) [Entitic vol] 94.4 fL 81-99 [facility] Erythrocyte distribution wid th ratioOrdered By: Samia Bradley on 09-05-2023 Erythrocyte distribution width (RBC) [Ratio] 12.9 % 11.6-14.6 [facility] Erythrocyte distribution wid th standard deviationOrdered By: Samia Bradley on 09-05-2023 Erythrocyte distribution width (RBC) [Entitic vol] 44.6 fL 35.1-43.9 [facility] Hematocrit Auto (Bld) [Volum e fraction]Ordered By: Samia Bradley on 09-05-2023 Hematocrit (Bld) [Volume fraction] 33.6 % 37-47 [facility] Immature granulocytes/100 WB C Auto (Bld)Ordered By: Samia Bradley on 09-05-2023 Immature granulocytes/100 WBC (Bld) 1.800 % 0.0-0.9 [facility] Comment on above: IG% - Immature Granu locytes (promyelocytes, myelocytes and metamyelocytes) > 1% indicates that a LEFT SHIFT is Present. Laboratory - Hematology and Cell countsOrdered By: Samia Bradley on 09-05-2023 MCH (RBC) [Entitic mass] 32.3 pg 27.0-32.0 [facility] MCHC (RBC) [Mass/Vol] 34.2 g/dL 32-36 [facility] Nucleated RBC/100 WBC (Bld) [Ratio] 0 % 0-5 [facility] Platelet mean volume (Bld) [Entitic vol] 10.0 fL 6.2-12.0 [facility] Platelets (Bld) [#/Vol] 214 10*3/uL 150-450 [facility] Neisseria gonorrhoeae genita l PCROrdered By: Samia Bradley on 09-05-2023 N. gonorrhoeae DNA WALESKA+probe Ql (Genital specimen) [facility] N. gonorrhoeae DNA WALESKA+probe Ql (Genital specimen) [facility] No Panel InformationOrdered By: Samia Bradley on 09-05-2023 Chlamydia trachomatis (PCR) [facility] Chlamydia trachomatis (PCR) [facility] RBC Auto (Bld) [#/Vol]Ordere d By: Samia Bradley on 09-05-2023 RBC (Bld) [#/Vol] 3.56 10*6/uL 4.2-5.4 [facility] Serum Treponema species anti body detectionOrdered By: Samia Bradley on 09-05-2023 Treponema sp Ab Ql (S) Non-Reactive [facility] Absolute lymphocyte countOrd ered By: Samia Bradley on 09-03-2023 Lymphocytes Auto (Unsp spec) [#/Vol] 1.55 10*3/uL 0.83-4.51 [facility] Automated lymphocyte count a s percentage of total leukocytesOrdered By: Samia Bradley on 09-03-2023 Lymphocytes/100 WBC Auto (Unsp spec) 16.4 % 19-41 [facility] Basophil percentageOrdered B y: Samia Bradley on 09-03-2023 Basophils/100 WBC (Bld) 0.7 % 0-1 [facility] Bilirubin [Mass/Vol] 0.30 mg/dL 0.20-1.00 [facility] Comment on above: For patients on eltr ombopag therapy, use of Dimension [place] TBIL is not recommended. Chloride [Moles/Vol] 108 mmol/L 98-107 [facility] Eosinophils/100 WBC (Bld) 1.2 % 0-5 [facility] Glucose [Mass/Vol] 85 mg/dL 74-106 [facility] Hemoglobin (Bld) [Mass/Vol] 12.3 g/dL 12.0-15.0 [facility] Monocytes/100 WBC (Bld) 7.2 % 0-10 [facility] Neutrophils (Bld) [#/Vol] 6.9 10*3/uL 2.0-7.7 [facility] Neutrophils/100 WBC (Bld) 73.0 % 47-70 [facility] Potassium [Moles/Vol] 3.6 mmol/L 3.5-5.1 [facility] Protein [Mass/Vol] 6.7 g/dL 6.4-8.2 [facility] Sodium [Moles/Vol] 138 mmol/L 136-145 [facility] WBC (Bld) [#/Vol] 9.5 10*3/uL 4.4-11.0 [facility] Determination of erythrocyte mean corpuscular volume (MCV)Ordered By: Samia Bradley on 09-03-2023 MCV (RBC) [Entitic vol] 95.8 fL 81-99 [facility] Erythrocyte distribution wid th ratioOrdered By: Samia Bradley on 09-03-2023 Erythrocyte distribution width (RBC) [Ratio] 13.0 % 11.6-14.6 [facility] Erythrocyte distribution wid th standard deviationOrdered By: Samia Bradley on 09-03-2023 Erythrocyte distribution width (RBC) [Entitic vol] 45.5 fL 35.1-43.9 [facility] Hematocrit Auto (Bld) [Volum e fraction]Ordered By: Samia Bradley on 09-03-2023 Hematocrit (Bld) [Volume fraction] 36.6 % 37-47 [facility] Immature granulocytes/100 WB C Auto (Bld)Ordered By: Samia Bradley on 09-03-2023 Immature granulocytes/100 WBC (Bld) 1.500 % 0.0-0.9 [facility] Comment on above: IG% - Immature Granu locytes (promyelocytes, myelocytes and metamyelocytes) > 1% indicates that a LEFT SHIFT is Present. Laboratory - Chemistry and C hemistry - challengeOrdered By: Samia Bradley on 09-03-2023 Albumin/Globulin [Mass ratio] 1.0 {ratio} 0.9-2.4 [facility] ALP [Catalytic activity/Vol] 115 U/L 45-117 [facility] ALT [Catalytic activity/Vol] 30 U/L 13-56 [facility] CO2 [Moles/Vol] 25.0 mmol/L 21.0-32.0 [facility] Globulin (S) [Mass/Vol] 3.4 g/dL 2.2-4.2 [facility] Urea nitrogen/Creatinine [Mass ratio] 14.6 mg/mg 10-20 [facility] Laboratory - Chemistry and C hemistry - challengeon 09-03-2023 Glucose Ql (U) Negative [facility] Laboratory - Hematology and Cell countsOrdered By: Samia Bradley on 09-03-2023 MCH (RBC) [Entitic mass] 32.2 pg 27.0-32.0 [facility] MCHC (RBC) [Mass/Vol] 33.6 g/dL 32-36 [facility] Nucleated RBC/100 WBC (Bld) [Ratio] 0 % 0-5 [facility] Platelet mean volume (Bld) [Entitic vol] 10.3 fL 6.2-12.0 [facility] Platelets (Bld) [#/Vol] 210 10*3/uL 150-450 [facility] Laboratory - Urinalysison Protein Ql (U) Negative [facility] No Panel InformationOrdered By: Samia Bradley on 09-03-2023 Group B Streptococcus Culture Group B Beta Streptococcus is not isolated. [facility] Group B Streptococcus Culture Group B Beta Streptococcus is not isolated. [facility] Estimated GFR (MDRD) Amer 144 mL/min >60 [facility] Comment on above: GFR Calc Estimated GFR (MDRD) Non-Af Amer 119 mL/min >60 [facility] Comment on above: Non- GFR Calc Miscellaneous Test See comment [facility] Comment on above: TEST RESULTS LIMITSB ile Acids, Fractionated LCMSUrsodeoxycholic Acids <0.10 umol/LReference Range:All Ages: <1.9Cholic Acids <0.10 umol/LReference Range:All Ages: <2.2Chenodeoxycholic Acids 0.20 umol/LReference Range:All Ages: <5.8Deoxycholic Acids 0.60 umol/LReference Range:All Ages: <3.3Total Bile Acids 0.80 umol/LThis test was developed and its performance characteristicsdetermined by [employer]. It has not been cleared or approvedby the Food and Drug Administration.Reference Range:All Ages: <9.2 TESTING PERFORMED AT [facility]. ORIGINAL REPORT ON FILE IN LAB CONTAINS ADDITIONAL TEST SITE INFORMATION. RBC Auto (Bld) [#/Vol]Ordere d By: Samia Bradley on 09-03-2023 RBC (Bld) [#/Vol] 3.82 10*6/uL 4.2-5.4 [facility] Serum or plasma calcium diaz urement (mass/volume)Ordered By: Samia Bradley on 09-03-2023 Calcium [Mass/Vol] 9.3 mg/dL 8.5-10.1 [facility] Serum or plasma creatinine m easurement (mass/volume)Ordered By: Samia Bradley on 09-03-2023 Creatinine [Mass/Vol] 0.62 mg/dL 0.55-1.02 [facility] Comment on above: The validity of the calculated GFR & GFRAA in patients over 70 years has not been determined. Clinical correlation is essential. Serum or plasma urea nitroge n measurement (mass/volume)Ordered By: Samia Bradley on 09-03-2023 Urea nitrogen [Mass/Vol] 9 mg/dL 7-18 [facility] Thin prep Papanicolaou smear with manual screeningOrdered By: Samia Bradley on 09-03-2023 Thin prep Papanicolaou smear with manual screening 3.3 g/dL 3.2-5.0 [facility] Thin prep Papanicolaou smear with manual screening 20 U/L 15-37 [facility] Thin prep Papanicolaou smear with manual screening 5 5-15 [facility] Laboratory - Chemistry and C hemistry - challengeon 08-24-2023 Glucose Ql (U) Negative [facility] Laboratory - Urinalysison Protein Ql (U) Negative [facility] Laboratory - Chemistry and C hemistry - challengeon 08-12-2023 Glucose Ql (U) Negative [facility] Laboratory - Urinalysison Protein Ql (U) Negative [facility] Serum or plasma thyroid stim ulating hormone (TSH) measurement (units/volume)Ordered By: Yoko Alberts on 08-12-2023 TSH Qn 1.72 uIU/mL 0.358-3.74 [facility] Thin prep Papanicolaou smear with manual screeningOrdered By: Yoko Alberts on 08-12-2023 Thin prep Papanicolaou smear with manual screening 0.95 ng/dL 0.76-1.46 [facility] Quantitative serum or plasma 3 hour gestational glucose tolerance panelOrdered By: Keysha Chance on 07-27-2023 Glucose tolerance 3 hours gestational panel See comment [facility] Comment on above: FASTING 80 Col: 07/06 09/25 0814GLUCOSE TOLERANCE TEST FOR Reference Interval GESTATIONAL DIABETES Fasting <105 mg/dL 1 hour <190 mg/dl 2 hour <165 mg/dl 3 hour <145 mg/dl 1 HR GLU 164 Col: 07/27/23 0916 2 HR GLU 146 Col: 07/27/23 1016 3 HR GLU 149 H Col: 07/27/23 1113 Laboratory - Chemistry and C hemistry - challengeon 07-26-2023 Glucose Ql (U) Negative [facility] Laboratory - Urinalysison Protein Ql (U) Negative [facility] Absolute lymphocyte countOrd ered By: Samia Bradley on 07-07-2023 Lymphocytes Auto (Unsp spec) [#/Vol] 1.93 10*3/uL 0.83-4.51 [facility] Basophil percentageOrdered B y: Samia Bradley on 07-07-2023 Basophils/100 WBC (Bld) 0.3 % 0-1 [facility] Eosinophils/100 WBC (Bld) 1.8 % 0-5 [facility] Neutrophils (Bld) [#/Vol] 6.4 10*3/uL 2.0-7.7 [facility] Neutrophils/100 WBC (Bld) 69.8 % 47-70 [facility] WBC (Bld) [#/Vol] 9.1 10*3/uL 4.4-11.0 [facility] Blood erythrocytes count (nu mber/volume)Ordered By: Samia Bradley on 07-07-2023 RBC (Bld) [#/Vol] 3.61 10*6/uL 4.2-5.4 [facility] Blood hemoglobin measurement (mass/volume)Ordered By: Samia Bradley on 07-07-2023 Hemoglobin (Bld) [Mass/Vol] 11.6 g/dL 12.0-15.0 [facility] Blood lymphocytes/100 leukoc ytesOrdered By: Samia Bradley on 07-07-2023 Lymphocytes/100 WBC (Bld) 21.2 % 19-41 [facility] Blood monocytes/100 leukocyt esOrdered By: Samia Bradley on 07-07-2023 Monocytes/100 WBC (Bld) 5.9 % 0-10 [facility] Blood platelet mean volumeOr dered By: Samia Bradley on 07-07-2023 Platelet mean volume (Bld) [Entitic vol] 9.5 fL 6.2-12.0 [facility] Determination of erythrocyte mean corpuscular volume (MCV)Ordered By: Samia Bradley on 07-07-2023 MCV (RBC) [Entitic vol] 94.7 fL 81-99 [facility] Gestational diabetes screen 1-hour screen with 50g oral glucose loadOrdered By: Samia Bradley on 07-07-2023 Glucose 1 Hr post 50 g glucose PO [Mass/Vol] 146 mg/dL 70-140 [facility] HIV 1 and HIV-2 antibody ass ay with HIV-1 p24 antigen detectionOrdered By: Samia Bradley on 07-07-2023 HIV 1+2 Ab+HIV1 p24 Ag IA Ql Non-Reactive Nonreactive [facility] Hematocrit Auto (Bld) [Volum e fraction]Ordered By: Samia Bradley on 07-07-2023 Hematocrit (Bld) [Volume fraction] 34.2 % 37-47 [facility] - Chemistry and C hemistry - challengeon 07-07-2023 Glucose Ql (U) Negative [facility] - Hematology and Cell countsOrdered By: Samia Bradley on 07-07-2023 Erythrocyte distribution width (RBC) [Entitic vol] 44.0 fL 35.1-43.9 [facility] Erythrocyte distribution width (RBC) [Ratio] 12.7 % 11.6-14.6 [facility] Immature granulocytes/100 WBC (Bld) 1.000 % 0.0-0.9 [facility] Comment on above: IG% - Immature Granu locytes (promyelocytes, myelocytes and metamyelocytes) > 1% indicates that a LEFT SHIFT is Present. MCH (RBC) [Entitic mass] 32.1 pg 27.0-32.0 [facility] Nucleated RBC/100 WBC (Bld) [Ratio] 0 % 0-5 [facility] Laboratory - Urinalysison Protein Ql (U) Negative [facility] MCHC Auto (RBC) [Mass/Vol]Or dered By: Samia Bradley on 07-07-2023 MCHC (RBC) [Mass/Vol] 33.9 g/dL 32-36 [facility] Platelets bldOrdered By: Vi Bradley on 07-07-2023 Platelets (Bld) [#/Vol] 272 10*3/uL 150-450 [facility] Serum Treponema species anti body detectionOrdered By: Samia Bradley on 07-07-2023 Treponema sp Ab Ql (S) Non-Reactive [facility] Laboratory - Chemistry and C hemistry - challengeon 06-14-2023 Glucose Ql (U) Negative [facility] - Urinalysison Protein Ql (U) Negative [facility] - Chemistry and C hemistry - challengeon 05-19-2023 Glucose Ql (U) Negative [facility] - Urinalysison Protein Ql (U) Negative [facility] - Chemistry and C hemistry - challengeon 04-23-2023 Glucose Ql (U) Negative [facility] - Urinalysison Protein Ql (U) Negative [facility] No Panel InformationOrdered By: Samia Bradley on 03-04-2023 Miscellaneous Test Comment MAILED SPECIMEN [facility] Absolute lymphocyte countOrd ered By: Samia Bradley on 02-25-2023 Lymphocytes Auto (Unsp spec) [#/Vol] 1.89 10*3/uL 0.83-4.51 [facility] Basophil percentageOrdered B y: Samia Bradley on 02-25-2023 Basophils/100 WBC (Bld) 0.4 % 0-1 [facility] Eosinophils/100 WBC (Bld) 3.5 % 0-5 [facility] Neutrophils (Bld) [#/Vol] 6.1 10*3/uL 2.0-7.7 [facility] Neutrophils/100 WBC (Bld) 67.4 % 47-70 [facility] WBC (Bld) [#/Vol] 9.0 10*3/uL 4.4-11.0 [facility] Blood erythrocytes count (nu mber/volume)Ordered By: Samia Bradley on 02-25-2023 RBC (Bld) [#/Vol] 4.19 10*6/uL 4.2-5.4 [facility] Blood hemoglobin measurement (mass/volume)Ordered By: Samia Bradley on 02-25-2023 Hemoglobin (Bld) [Mass/Vol] 13.1 g/dL 12.0-15.0 [facility] Blood lymphocytes/100 leukoc ytesOrdered By: Samia Bradley on 02-25-2023 Lymphocytes/100 WBC (Bld) 20.9 % 19-41 [facility] Blood monocytes/100 leukocyt esOrdered By: Samia Bradley on 02-25-2023 Monocytes/100 WBC (Bld) 7.1 % 0-10 [facility] Blood platelet mean volumeOr dered By: Samia Bradley on 02-25-2023 Platelet mean volume (Bld) [Entitic vol] 9.6 fL 6.2-12.0 [facility] Determination of erythrocyte mean corpuscular volume (MCV)Ordered By: Samia Bradley on 02-25-2023 MCV (RBC) [Entitic vol] 95.5 fL 81-99 [facility] HIV 1 and HIV-2 antibody ass ay with HIV-1 p24 antigen detectionOrdered By: Samia Bradley on 02-25-2023 HIV 1+2 Ab+HIV1 p24 Ag IA Ql Non-Reactive Nonreactive [facility] Hematocrit Auto (Bld) [Volum e fraction]Ordered By: Samia Bradley on 02-25-2023 Hematocrit (Bld) [Volume fraction] 40.0 % 37-47 [facility] - Chemistry and C hemistry - challengeon 02-25-2023 Glucose Ql (U) Negative [facility] - Hematology and Cell countsOrdered By: Samia Bradley on 02-25-2023 Erythrocyte distribution width (RBC) [Entitic vol] 40.8 fL 35.1-43.9 [facility] Erythrocyte distribution width (RBC) [Ratio] 11.8 % 11.6-14.6 [facility] Immature granulocytes/100 WBC (Bld) 0.700 % 0.0-0.9 [facility] Comment on above: IG% - Immature Granu locytes (promyelocytes, myelocytes and metamyelocytes) > 1% indicates that a LEFT SHIFT is Present. MCH (RBC) [Entitic mass] 31.3 pg 27.0-32.0 [facility] Nucleated RBC/100 WBC (Bld) [Ratio] 0 % 0-5 [facility] - Urinalysison Protein Ql (U) Negative [facility] MCHC Auto (RBC) [Mass/Vol]Or dered By: Samia Bradley on 02-25-2023 MCHC (RBC) [Mass/Vol] 32.8 g/dL 32-36 [facility] No Panel InformationOrdered By: Samia Bradley on 02-25-2023 Hepatitis B Surface Antigen Non-Reactive Nonreactive [facility] Hepatitis C Antibody Non-Reactive Nonreactive [facility] Comment on above: Non Reactive: < 0.8 Equivocal: >/= 0.8 to < 1.0 Reactive: >/= 1.0The CDC recommends that a reactive/equivocal HCV antibody result be followed up by the HCV Nucleic Acid Amplificationtest (352419) Miscellaneous Test Comment MAILED SPECIMEN [facility] Rubella IgG Antibody Reactive Nonreactive [facility] Comment on above: Antibody Results Int erpretation of Immune Status Non Reactive Presumed Non-Immune Equivocal Equivocal Reactive Presumed Immune Platelets bldOrdered By: Vi Bradley on 02-25-2023 Platelets (Bld) [#/Vol] 354 10*3/uL 150-450 [facility] Serum Treponema species anti body detectionOrdered By: Samia Bradley on 02-25-2023 Treponema sp Ab Ql (S) Non-Reactive [facility] Culture, urineOrdered By: Mark Bradley on 02-04-2023 Bacteria identified Cx Nom (U) Culture exhibits no growth. [facility] Serum or plasma thyroperoxid ase antibody assay (units/volume)Ordered By: Ryan Mckeon on 01-29-2023 TPO Ab Qn [IU]/mL 0-34 [facility] Comment on above: Performed at: [facility] [id number] [place], [place] [id number] Director: Oren Veronica PhD, Phone: [phone] Absolute lymphocyte countOrd ered By: Samia Bradley on 01-28-2023 Lymphocytes Auto (Unsp spec) [#/Vol] 2.22 10*3/uL 0.83-4.51 [facility] Basophil percentageOrdered B y: Samia Bradley on 01-28-2023 Basophils/100 WBC (Bld) 0.5 % 0-1 [facility] Eosinophils/100 WBC (Bld) 2.1 % 0-5 [facility] Neutrophils (Bld) [#/Vol] 7.5 10*3/uL 2.0-7.7 [facility] Neutrophils/100 WBC (Bld) 68.7 % 47-70 [facility] WBC (Bld) [#/Vol] 10.9 10*3/uL 4.4-11.0 [facility] Blood erythrocytes count (nu mber/volume)Ordered By: Samia Bradley on 01-28-2023 RBC (Bld) [#/Vol] 4.34 10*6/uL 4.2-5.4 [facility] Blood hemoglobin measurement (mass/volume)Ordered By: Samia Bradley on 01-28-2023 Hemoglobin (Bld) [Mass/Vol] 14.2 g/dL 12.0-15.0 [facility] Blood lymphocytes/100 leukoc ytesOrdered By: Samia Bradley on 01-28-2023 Lymphocytes/100 WBC (Bld) 20.3 % 19-41 [facility] Blood monocytes/100 leukocyt esOrdered By: Samia Bradley on 01-28-2023 Monocytes/100 WBC (Bld) 7.9 % 0-10 [facility] Blood platelet mean volumeOr dered By: Samia Bradley on 01-28-2023 Platelet mean volume (Bld) [Entitic vol] 9.8 fL 6.2-12.0 [facility] Determination of erythrocyte mean corpuscular volume (MCV)Ordered By: Samia Bradley on 01-28-2023 MCV (RBC) [Entitic vol] 95.4 fL 81-99 [facility] HIV 1 and HIV-2 antibody ass ay with HIV-1 p24 antigen detectionOrdered By: Samia Bradley on 01-28-2023 HIV 1+2 Ab+HIV1 p24 Ag IA Ql Non-Reactive Nonreactive [facility] Hematocrit Auto (Bld) [Volum e fraction]Ordered By: Samia Bradley on 01-28-2023 Hematocrit (Bld) [Volume fraction] 41.4 % 37-47 [facility] - Hematology and Cell countsOrdered By: Samia Bradley on 01-28-2023 Erythrocyte distribution width (RBC) [Entitic vol] 41.8 fL 35.1-43.9 [facility] Erythrocyte distribution width (RBC) [Ratio] 11.9 % 11.6-14.6 [facility] Immature granulocytes/100 WBC (Bld) 0.500 % 0.0-0.9 [facility] Comment on above: IG% - Immature Granu locytes (promyelocytes, myelocytes and metamyelocytes) > 1% indicates that a LEFT SHIFT is Present. MCH (RBC) [Entitic mass] 32.7 pg 27.0-32.0 [facility] Nucleated RBC/100 WBC (Bld) [Ratio] 0 % 0-5 [facility] MCHC Auto (RBC) [Mass/Vol]Or dered By: Samia Bradley on 01-28-2023 MCHC (RBC) [Mass/Vol] 34.3 g/dL 32-36 [facility] No Panel InformationOrdered By: Samia Bradley on 01-28-2023 Hepatitis B Surface Antigen Non-Reactive Nonreactive [facility] Hepatitis C Antibody Non-Reactive Nonreactive [facility] Comment on above: Non Reactive: < 0.8 Equivocal: >/= 0.8 to < 1.0 Reactive: >/= 1.0The CDC recommends that a reactive/equivocal HCV antibody result be followed up by the HCV Nucleic Acid Amplificationtest (328317) Rubella IgG Antibody Reactive Nonreactive [facility] Comment on above: Antibody Results Int erpretation of Immune Status Non Reactive Presumed Non-Immune Equivocal Equivocal Reactive Presumed Immune Platelets bldOrdered By: Vi Bradley on 01-28-2023 Platelets (Bld) [#/Vol] 288 10*3/uL 150-450 [facility] Serum Treponema species anti body detectionOrdered By: Samia Bradley on 01-28-2023 Treponema sp Ab Ql (S) Non-Reactive [facility] Serum or plasma choriogonado tropin detectionOrdered By: Samia Bradley on 01-27-2023 HCG ( test) Ql 2374 mIU/mL <4 [facility] Comment on above: hCG levels with Gest ational AgeGestational Age hCG mIU/mL (IU/L)0.2 - 1 week 5 - 501-2 weeks 50 - 5002-3 weeks 100 - 79969-2 weeks 500 - 624597-7 weeks 1000 - 834044-6 weeks 61150 - 100,0006-8 weeks 20622 - 200,0002-3 months 53294 - 100,000 Serum or plasma choriogonado tropin detectionOrdered By: Samia Bradley on 01-20-2023 HCG ( test) Ql 170 mIU/mL <4 [facility] Comment on above: hCG levels with Gest ational AgeGestational Age hCG mIU/mL (IU/L)0.2 - 1 week 5 - 501-2 weeks 50 - 5002-3 weeks 100 - 00797-9 weeks 500 - 831091-1 weeks 1000 - 901160-9 weeks 49486 - 100,0006-8 weeks 42893 - 200,0002-3 months 24860 - 100,000 Serum or plasma choriogonado tropin detectionOrdered By: Samia Bradley on 01-18-2023 HCG ( test) Ql 84 mIU/mL <4 [facility] Comment on above: hCG levels with Gest ational AgeGestational Age hCG mIU/mL (IU/L)0.2 - 1 week 5 - 501-2 weeks 50 - 5002-3 weeks 100 - 97388-8 weeks 500 - 067226-1 weeks 1000 - 989488-1 weeks 61347 - 100,0006-8 weeks 14970 - 200,0002-3 months 66441 - 100,000 Absolute lymphocyte countOrd ered By: Dr. Barnett on 12-14-2022 Lymphocytes Auto (Unsp spec) [#/Vol] 1.42 10*3/uL 0.83-4.51 [facility] Basophil percentageOrdered B y: Dr. Barnett on 12-14-2022 Basophils/100 WBC (Bld) 0.7 % 0-1 [facility] Bilirubin [Mass/Vol] 0.50 mg/dL 0.20-1.00 [facility] Comment on above: For patients on eltr ombopag therapy, use of Dimension [place] TBIL is not recommended. Chloride [Moles/Vol] 111 mmol/L 98-107 [facility] Eosinophils/100 WBC (Bld) 2.0 % 0-5 [facility] Glucose [Mass/Vol] 90 mg/dL 74-106 [facility] Neutrophils (Bld) [#/Vol] 5.2 10*3/uL 2.0-7.7 [facility] Neutrophils/100 WBC (Bld) 70.0 % 47-70 [facility] Potassium [Moles/Vol] 4.1 mmol/L 3.5-5.1 [facility] Protein [Mass/Vol] 7.2 g/dL 6.4-8.2 [facility] Sodium [Moles/Vol] 139 mmol/L 136-145 [facility] WBC (Bld) [#/Vol] 7.4 10*3/uL 4.4-11.0 [facility] Blood erythrocytes count (nu mber/volume)Ordered By: Dr. Barnett on 12-14-2022 RBC (Bld) [#/Vol] 4.43 10*6/uL 4.2-5.4 [facility] Blood hemoglobin measurement (mass/volume)Ordered By: Dr. Barnett on 12-14-2022 Hemoglobin (Bld) [Mass/Vol] 14.4 g/dL 12.0-15.0 [facility] Blood lymphocytes/100 leukoc ytesOrdered By: Dr. Barnett on 12-14-2022 Lymphocytes/100 WBC (Bld) 19.2 % 19-41 [facility] Blood monocytes/100 leukocyt esOrdered By: Dr. Barnett on 12-14-2022 Monocytes/100 WBC (Bld) 7.8 % 0-10 [facility] Blood platelet mean volumeOr dered By: Dr. Barnett on 12-14-2022 Platelet mean volume (Bld) [Entitic vol] 9.8 fL 6.2-12.0 [facility] Determination of erythrocyte mean corpuscular volume (MCV)Ordered By: Dr. Barnett on 12-14-2022 MCV (RBC) [Entitic vol] 97.1 fL 81-99 [facility] Hematocrit Auto (Bld) [Volum e fraction]Ordered By: Dr. Barnett on 12-14-2022 Hematocrit (Bld) [Volume fraction] 43.0 % 37-47 [facility] - Chemistry and C hemistry - challengeOrdered By: Dr. Banrett on 12-14-2022 ALP [Catalytic activity/Vol] 57 U/L 45-117 [facility] ALT [Catalytic activity/Vol] 31 U/L 13-56 [facility] CO2 [Moles/Vol] 22.0 mmol/L 21.0-32.0 [facility] Cobalamin (Vitamin B12) [Mass/Vol] 607 pg/mL 211-911 [facility] Free T4 [Mass/Vol] 1.00 ng/dL 0.76-1.46 [facility] Globulin (S) [Mass/Vol] 2.9 g/dL 2.2-4.2 [facility] Urea nitrogen/Creatinine [Mass ratio] 22.5 mg/mg 10-20 [facility] - Hematology and Cell countsOrdered By: Dr. Barnett on 12-14-2022 Erythrocyte distribution width (RBC) [Entitic vol] 42.6 fL 35.1-43.9 [facility] Erythrocyte distribution width (RBC) [Ratio] 11.9 % 11.6-14.6 [facility] Immature granulocytes/100 WBC (Bld) 0.300 % 0.0-0.9 [facility] Comment on above: IG% - Immature Granu locytes (promyelocytes, myelocytes and metamyelocytes) > 1% indicates that a LEFT SHIFT is Present. MCH (RBC) [Entitic mass] 32.5 pg 27.0-32.0 [facility] Nucleated RBC/100 WBC (Bld) [Ratio] 0 % 0-5 [facility] MCHC Auto (RBC) [Mass/Vol]Or dered By: Dr. Barnett on 12-14-2022 MCHC (RBC) [Mass/Vol] 33.5 g/dL 32-36 [facility] No Panel InformationOrdered By: Dr. Barnett on 12-14-2022 Adrenocorticotropic Hormone 10.8 pg/mL 7.2-63.3 [facility] Comment on above: ACTH reference inter lynnette for samples collected between 7 and10 AM.Performed at: [email or web address] [id number] Director: Oren Veronica PhD, Phone: [phone] Estimated GFR (MDRD) Amer 132 mL/min >60 [facility] Comment on above: GFR Calc Estimated GFR (MDRD) Non-Af Amer 109 mL/min >60 [facility] Comment on above: Non- GFR Calc Free Triiodothyronine (T3) pg/dL 2.2 pg/mL 2.18-3.98 [facility] Thyroid Stimulating Hormone (TSH) 1.07 uIU/mL 0.358-3.74 [facility] Vitamin D 25-Hydroxy 53.4 ng/mL [facility] Comment on above: Vitamin D 25(OH) Sta tus Range Deficiency <20 ng/mL (50nmol/L) Insufficiency 20 - 30 ng/mL (50 - 75 nmol/L) Sufficiency 30 - 100 ng/mL (75 - 250 nmol/L) Toxicity >100 ng/mL (>250 nmol/L) Platelets bldOrdered By: Dr. Barnett on 12-14-2022 Platelets (Bld) [#/Vol] 281 10*3/uL 150-450 [facility] Serum or plasma albumin diaz urement (mass/volume)Ordered By: Dr. Barnett on 12-14-2022 Albumin [Mass/Vol] 4.3 g/dL 3.2-5.0 [facility] Serum or plasma albumin/glob ulin mass ratioOrdered By: Dr. Barnett on 12-14-2022 Albumin/Globulin [Mass ratio] 1.5 {ratio} 0.9-2.4 [facility] Serum or plasma calcium diaz urement (mass/volume)Ordered By: Dr. Barnett on 12-14-2022 Calcium [Mass/Vol] 8.9 mg/dL 8.5-10.1 [facility] Serum or plasma creatinine m easurement (mass/volume)Ordered By: Dr. Barnett on 12-14-2022 Creatinine [Mass/Vol] 0.67 mg/dL 0.55-1.02 [facility] Comment on above: The validity of the calculated GFR & GFRAA in patients over 70 years has not been determined. Clinical correlation is essential. Serum or plasma prolactin me asurement (mass/volume)Ordered By: Dr. Barnett on 12-14-2022 Prolactin [Mass/Vol] 19.9 ng/mL [facility] Comment on above: NORMAL REFERENCE RAN GES FEMALE NON- 2.2 - 30.3 ng/mL 8.1 - 347.6 ng/mL POST-MENOPAUSAL 0.7 - 31.5 ng/mL MALE 2.5 - 17.4 ng/mL Serum or plasma urea nitroge n measurement (mass/volume)Ordered By: Dr. Barnett on 12-14-2022 Urea nitrogen [Mass/Vol] 15 mg/dL 7-18 [facility] Thin prep Papanicolaou smear with manual screeningOrdered By: Dr. Barnett on 12-14-2022 Thin prep Papanicolaou smear with manual screening 21 U/L 15-37 [facility] Thin prep Papanicolaou smear with manual screening 6 5-15 [facility] Absolute lymphocyte countOrd ered By: Dr. Barnett on 09-08-2022 Lymphocytes Auto (Unsp spec) [#/Vol] 2.09 10*3/uL 0.83-4.51 [facility] Basophil percentageOrdered B y: Dr. Barnett on 09-08-2022 Basophils/100 WBC (Bld) 0.7 % 0-1 [facility] Bilirubin [Mass/Vol] 0.20 mg/dL 0.20-1.00 [facility] Comment on above: For patients on eltr ombopag therapy, use of Dimension [place] TBIL is not recommended. Chloride [Moles/Vol] 104 mmol/L 98-107 [facility] Eosinophils/100 WBC (Bld) 3.4 % 0-5 [facility] Glucose [Mass/Vol] 87 mg/dL 74-106 [facility] Neutrophils (Bld) [#/Vol] 3.8 10*3/uL 2.0-7.7 [facility] Neutrophils/100 WBC (Bld) 56.1 % 47-70 [facility] Potassium [Moles/Vol] 3.7 mmol/L 3.5-5.1 [facility] Protein [Mass/Vol] 7.4 g/dL 6.4-8.2 [facility] Sodium [Moles/Vol] 140 mmol/L 136-145 [facility] WBC (Bld) [#/Vol] 6.8 10*3/uL 4.4-11.0 [facility] Blood erythrocytes count (nu mber/volume)Ordered By: Dr. Barnett on 09-08-2022 RBC (Bld) [#/Vol] 4.33 10*6/uL 4.2-5.4 [facility] Blood hemoglobin measurement (mass/volume)Ordered By: Dr. Barnett on 09-08-2022 Hemoglobin (Bld) [Mass/Vol] 14.1 g/dL 12.0-15.0 [facility] Blood lymphocytes/100 leukoc ytesOrdered By: Dr. Barnett on 09-08-2022 Lymphocytes/100 WBC (Bld) 31.0 % 19-41 [facility] Blood monocytes/100 leukocyt esOrdered By: Dr. Barnett on 09-08-2022 Monocytes/100 WBC (Bld) 8.7 % 0-10 [facility] Blood platelet mean volumeOr dered By: Dr. Barnett on 09-08-2022 Platelet mean volume (Bld) [Entitic vol] 10.3 fL 6.2-12.0 [facility] Determination of erythrocyte mean corpuscular volume (MCV)Ordered By: Dr. Barnett on 09-08-2022 MCV (RBC) [Entitic vol] 96.8 fL 81-99 [facility] Erythrocyte sedimentation ra teOrdered By: Dr. Barnett on 09-08-2022 ESR (Bld) [Velocity] mm/h 0-30 [facility] Hematocrit Auto (Bld) [Volum e fraction]Ordered By: Dr. Barnett on 09-08-2022 Hematocrit (Bld) [Volume fraction] 41.9 % 37-47 [facility] - Chemistry and C hemistry - challengeOrdered By: Dr. Barnett on 09-08-2022 Albumin [Mass/Vol] 4.5 g/dL 2.9-4.4 [facility] ALP [Catalytic activity/Vol] 65 U/L 45-117 [facility] ALT [Catalytic activity/Vol] 37 U/L 13-56 [facility] CO2 [Moles/Vol] 28.0 mmol/L 21.0-32.0 [facility] Free T4 [Mass/Vol] 0.75 ng/dL 0.76-1.46 [facility] Globulin (S) [Mass/Vol] 3.0 g/dL 2.2-4.2 [facility] Urea nitrogen/Creatinine [Mass ratio] 26.4 mg/mg 10-20 [facility] - Hematology and Cell countsOrdered By: Dr. Barnett on 09-08-2022 Erythrocyte distribution width (RBC) [Entitic vol] 43.1 fL 35.1-43.9 [facility] Erythrocyte distribution width (RBC) [Ratio] 12.0 % 11.6-14.6 [facility] Immature granulocytes/100 WBC (Bld) 0.100 % 0.0-0.9 [facility] Comment on above: IG% - Immature Granu locytes (promyelocytes, myelocytes and metamyelocytes) > 1% indicates that a LEFT SHIFT is Present. MCH (RBC) [Entitic mass] 32.6 pg 27.0-32.0 [facility] Nucleated RBC/100 WBC (Bld) [Ratio] 0 % 0-5 [facility] MCHC Auto (RBC) [Mass/Vol]Or dered By: Dr. Barnett on 09-08-2022 MCHC (RBC) [Mass/Vol] 33.7 g/dL 32-36 [facility] No Panel InformationOrdered By: Dr. Barnett on 09-08-2022 Addendum Document Comment: . [facility] Comment on above: SPE shows increased albumin Wbxht-[id number]-Udlqmwsnj 0.4 g/dL 0.0-0.4 [facility] Cadki-5-Zehupcaiz 0.6 g/dL 0.4-1.0 [facility] Anti-Nuclear Antibody Screen Negative Negative [facility] Comment on above: Performed at: [address] [id number] Director: Oren Veronica PhD, Phone: [phone] Estimated GFR (MDRD) Amer 129 mL/min >60 [facility] Comment on above: GFR Calc Estimated GFR (MDRD) Non-Af Amer 106 mL/min >60 [facility] Comment on above: Non- GFR Calc Gamma Globulins 0.7 g/dL 0.4-1.8 [facility] Thyroid Stimulating Hormone (TSH) 1.29 uIU/mL 0.358-3.74 [facility] Platelets bldOrdered By: Dr. Barnett on 09-08-2022 Platelets (Bld) [#/Vol] 287 10*3/uL 150-450 [facility] Protein Fractions Elph [Inte rp]Ordered By: Dr. Barnett on 09-08-2022 Protein Fractions [Interp] Comment . [facility] Comment on above: Protein electrophore sis scan will follow via computer,mail, or disaster recovery analyst delivery. Serum albumin to globulin ra ihsan by protein electrophoresisOrdered By: Dr. Barnett on 09-08-2022 Albumin/Globulin Elph [Mass ratio] 1.8 0.7-1.7 [facility] Serum globulin measurement ( mass/volume)Ordered By: Dr. Barnett on 09-08-2022 Globulin (S) [Mass/Vol] 2.5 g/dL 2.2-3.9 [facility] Serum or plasma C reactive p rotein measurement (mass/volume)Ordered By: Dr. Barnett on 09-08-2022 CRP [Mass/Vol] mg/L 0.0-3.0 [facility] Comment on above: C-Reactive Protein ( CRP) provides useful information for thediagnosis, therapy and monitoring of inflammatory processesand associated diseases. For the evaluation of Relative Riskfor Cardiovascular Disease, a High Sensitivity CRP (HSCRP)should be ordered. Serum or plasma albumin diaz urement (mass/volume)Ordered By: Dr. Barnett on 09-08-2022 Albumin [Mass/Vol] 4.4 g/dL 3.2-5.0 [facility] Serum or plasma albumin/glob ulin mass ratioOrdered By: Dr. Barnett on 09-08-2022 Albumin/Globulin [Mass ratio] 1.5 {ratio} 0.9-2.4 [facility] Serum or plasma beta globuli n measurement by electrophoresis (mass/volume)Ordered By: Dr. Barnett on 09-08-2022 Beta globulin Elph [Mass/Vol] 0.9 g/dL 0.7-1.3 [facility] Serum or plasma calcium diaz urement (mass/volume)Ordered By: Dr. Barnett on 09-08-2022 Calcium [Mass/Vol] 9.3 mg/dL 8.5-10.1 [facility] Serum or plasma complement C 3 measurement (mass/volume)Ordered By: Dr. Barnett on 09-08-2022 Complement C3 [Mass/Vol] 97 mg/dL 82-167 [facility] Comment on above: Performed at: [facility] [email or web address] [place] [id number] Director: Oren Veronica PhD, Phone: [phone] Serum or plasma creatinine m easurement (mass/volume)Ordered By: Dr. Barnett on 09-08-2022 Creatinine [Mass/Vol] 0.68 mg/dL 0.55-1.02 [facility] Comment on above: The validity of the calculated GFR & GFRAA in patients over 70 years has not been determined. Clinical correlation is essential. Serum or plasma urea nitroge n measurement (mass/volume)Ordered By: Dr. Barnett on 09-08-2022 Urea nitrogen [Mass/Vol] 18 mg/dL 7-18 [facility] Thin prep Papanicolaou smear with manual screeningOrdered By: Dr. Barnett on 09-08-2022 Thin prep Papanicolaou smear with manual screening 27 U/L 15-37 [facility] Thin prep Papanicolaou smear with manual screening 8 5-15 [facility] Thin prep Papanicolaou smear with manual screening See comment [facility] Comment on above: Result: Not Observed Total protein bloodOrdered B y: Dr. Barnett on 09-08-2022 Protein [Mass/Vol] 7.0 g/dL 6.0-8.5 [facility] Basophil percentageOrdered B y: Dr. Bradley on 07-10-2022 WBC (Bld) [#/Vol] 4.6 10*3/uL 4.4-11.0 [facility] Blood erythrocytes count (nu mber/volume)Ordered By: Dr. Bradley on 07-10-2022 RBC (Bld) [#/Vol] 4.31 10*6/uL 4.2-5.4 [facility] Blood hemoglobin measurement (mass/volume)Ordered By: Dr. Bradley on 07-10-2022 Hemoglobin (Bld) [Mass/Vol] 14.0 g/dL 12.0-15.0 [facility] Blood platelet mean volumeOr dered By: Dr. Bradley on 07-10-2022 Platelet mean volume (Bld) [Entitic vol] 9.4 fL 6.2-12.0 [facility] Determination of erythrocyte mean corpuscular volume (MCV)Ordered By: Dr. Bradley on 07-10-2022 MCV (RBC) [Entitic vol] 94.4 fL 81-99 [facility] Hematocrit Auto (Bld) [Volum e fraction]Ordered By: Dr. Bradley on 07-10-2022 Hematocrit (Bld) [Volume fraction] 40.7 % 37-47 [facility] - Hematology and Cell countsOrdered By: Dr. Bradley on 07-10-2022 Erythrocyte distribution width (RBC) [Entitic vol] 42.1 fL 35.1-43.9 [facility] Erythrocyte distribution width (RBC) [Ratio] 12.0 % 11.6-14.6 [facility] MCH (RBC) [Entitic mass] 32.5 pg 27.0-32.0 [facility] MCHC Auto (RBC) [Mass/Vol]Or dered By: Dr. Bradley on 07-10-2022 MCHC (RBC) [Mass/Vol] 34.4 g/dL 32-36 [facility] Platelets bldOrdered By: Dr. Bradley on 07-10-2022 Platelets (Bld) [#/Vol] 308 10*3/uL 150-450 [facility] Serum or plasma choriogonado tropin detectionOrdered By: Dr. Bradley on 07-03-2022 HCG ( test) Ql 135 mIU/mL <4 [facility] Comment on above: hCG levels with Gest ational AgeGestational Age hCG mIU/mL (IU/L)0.2 - 1 week 5 - 501-2 weeks 50 - 5002-3 weeks 100 - 47149-5 weeks 500 - 472524-9 weeks 1000 - 108494-2 weeks 06517 - 100,0006-8 weeks 31065 - 200,0002-3 months 93813 - 100,000 Serum or plasma choriogonado tropin detectionOrdered By: Dr. Bradley on 06-26-2022 HCG ( test) Ql 1793 mIU/mL <4 [facility] Comment on above: hCG levels with Gest ational AgeGestational Age hCG mIU/mL (IU/L)0.2 - 1 week 5 - 501-2 weeks 50 - 5002-3 weeks 100 - 49339-9 weeks 500 - 156540-6 weeks 1000 - 348824-6 weeks 50207 - 100,0006-8 weeks 93494 - 200,0002-3 months 49843 - 100,000 Serum or plasma choriogonado tropin detectionOrdered By: Dr. Bradley on 05-01-2022 HCG ( test) Ql 107 mIU/mL <4 [facility] Comment on above: hCG levels with Gest ational AgeGestational Age hCG mIU/mL (IU/L)0.2 - 1 week 5 - 501-2 weeks 50 - 5002-3 weeks 100 - 06925-5 weeks 500 - 339890-1 weeks 1000 - 775218-3 weeks 53859 - 100,0006-8 weeks 40374 - 200,0002-3 months 94971 - 100,000 Serum or plasma choriogonado tropin detectionOrdered By: Dr. Bradley on 04-29-2022 HCG ( test) Ql 42 mIU/mL <4 [facility] Comment on above: hCG levels with Gest ational AgeGestational Age hCG mIU/mL (IU/L)0.2 - 1 week 5 - 501-2 weeks 50 - 5002-3 weeks 100 - 17181-1 weeks 500 - 414603-6 weeks 1000 - 588485-6 weeks 66454 - 100,0006-8 weeks 66357 - 200,0002-3 months 05902 - 100,000 Vital Signs Date Time Vital Sign Value Performing Clinician Julio phoenix 10-18-2023 11:02-0400 Body height 167.[address] Gloria Barnett Work Phone: [facility] 10-18-2023 11:00-0400 Body mass index (BMI) [Ratio] 20.3 kg/m2 Dr. Gloria Barnett Work Phone: [facility] 10-18-2023 11:00-0400 Body weight 57.[address] Gloria Barnett Work Phone: [facility] 10-18-2023 11:00-0400 Diastolic blood pressure 88 mm[Hg] Dr. Gloria Barnett Work Phone: [facility] 10-18-2023 11:00-0400 Systolic blood pressure 122 mm[Hg] Dr. Gloria Barnett Work Phone: [facility] 09-07-2023 10:00-0500 Body temperature 98 [degF] Dr. Gloria Barnett Work Phone: [facility] 09-07-2023 08:50-0500 Diastolic blood pressure 63 mm[Hg] Dr. Gloria Barnett Work Phone: 8(520)723-158989 [place] [address] 09-07-2023 08:50-0500 Heart rate 83 /min Dr. Gloria Barnett Work Phone: [facility] 09-07-2023 08:50-0500 Respiratory rate 16 /min Dr. Gloria Barnett Work Phone: [facility] 09-07-2023 08:50-0500 SaO2% (BldA) [Mass fraction] 96 % Dr. Gloria Barnett Work Phone: [facility] 09-07-2023 08:50-0500 Systolic blood pressure 114 mm[Hg] Dr. Gloria Barnett Work Phone: [facility] 09-05-2023 08:00-0500 Body height 167.[address] Gloria Barnett Work Phone: [facility] 09-05-2023 08:00-0500 Body mass index (BMI) [Ratio] 22.4 kg/m2 Dr. Gloria Barnett Work Phone: [facility] 09-05-2023 08:00-0500 Body weight 63.[address] Gloria Barnett Work Phone: 1(381)579-859489 [place] [address] 09-03-2023 10:04-0500 Body mass index (BMI) [Ratio] 22.3 kg/m2 Dr. Gloria Barnett Work Phone: [facility] 09-03-2023 10:04-0500 Body weight 62.[address] Gloria Barnett Work Phone: [facility] 09-03-2023 10:04-0500 Diastolic blood pressure 82 mm[Hg] Dr. Gloria Barnett Work Phone: 2(176)141-191589 [place] [address] 09-03-2023 10:04-0500 Systolic blood pressure 126 mm[Hg] Dr. Gloria Barnett Work Phone: 1(743)772-807554 [address] 08-24-2023 09:44-0500 Body mass index (BMI) [Ratio] 22.1 kg/m2 Dr. Gloria Barnett Work Phone: 2(323)731-810089 [place] [address] 08-24-2023 09:44-0500 Body weight 62.[address] Gloria Barnett Work Phone: 2(129)125-316489 [place] [address] 08-24-2023 09:44-0500 Diastolic blood pressure 74 mm[Hg] Dr. Gloria Barnett Work Phone: 9(691)546-863089 [place] [address] 08-24-2023 09:44-0500 Systolic blood pressure 114 mm[Hg] Dr. Gloria Barnett Work Phone: 9(109)914-492254 [address] 08-12-2023 09:48-0500 Diastolic blood pressure 64 mm[Hg] Dr. Gloria Barnett Work Phone: 3(810)419-298189 [place] [address] 08-12-2023 09:48-0500 Systolic blood pressure 111 mm[Hg] Dr. Gloria Barnett Work Phone: 0(274)189-286689 [place] [address] 08-12-2023 09:08-0500 Body height 167.[address] Gloria Barnett Work Phone: 4(867)987-375789 [place] [address] 08-12-2023 09:05-0500 Body mass index (BMI) [Ratio] 21.9 kg/m2 Dr. Gloria Barnett Work Phone: 3(340)375-631389 [place] [address] 08-12-2023 09:05-0500 Body weight 61.[address] Gloria Barnett Work Phone: [facility] 07-26-2023 09:51-0500 Body height 167.[address] Gloria Barnett Work Phone: [facility] 07-26-2023 09:49-0500 Body mass index (BMI) [Ratio] 21.5 kg/m2 Dr. Gloria Barnett Work Phone: [facility] 07-26-2023 09:49-0500 Body weight 60.[address] Gloria Barnett Work Phone: [facility] 07-26-2023 09:49-0500 Diastolic blood pressure 63 mm[Hg] Dr. Gloria Barnett Work Phone: [facility] 07-26-2023 09:49-0500 Systolic blood pressure 118 mm[Hg] Dr. Gloria Barnett Work Phone: [facility] 07-07-2023 08:50-0500 Body mass index (BMI) [Ratio] 21.4 kg/m2 Dr. Gloria Barnett Work Phone: [facility] 07-07-2023 08:50-0500 Body weight 60.[address] Gloria Barnett Work Phone: [facility] 07-07-2023 08:50-0500 Diastolic blood pressure 66 mm[Hg] Dr. Gloria Barnett Work Phone: [facility] 07-07-2023 08:50-0500 Systolic blood pressure 119 mm[Hg] Dr. Gloria Barnett Work Phone: [facility] 06-14-2023 09:02-0500 Body mass index (BMI) [Ratio] 21 kg/m2 Dr. Gloria Barnett Work Phone: [facility] 06-14-2023 09:02-0500 Body weight 59.[address] Gloria Barnett Work Phone: [facility] 06-14-2023 09:02-0500 Diastolic blood pressure 77 mm[Hg] Dr. Gloria Barnett Work Phone: [facility] 06-14-2023 09:02-0500 Systolic blood pressure 128 mm[Hg] Dr. Gloria Barnett Work Phone: [facility] 05-19-2023 11:54-0500 Body mass index (BMI) [Ratio] 20.2 kg/m2 Dr. Gloria Barnett Work Phone: [facility] 05-19-2023 11:54-0500 Body weight 56.[address] Gloria Barnett Work Phone: [facility] 05-19-2023 11:54-0500 Diastolic blood pressure 87 mm[Hg] Dr. Gloria Barnett Work Phone: [facility] 05-19-2023 11:54-0500 Systolic blood pressure 132 mm[Hg] Dr. Gloria Barnett Work Phone: [facility] 04-23-2023 11:51-0400 Body mass index (BMI) [Ratio] 20 kg/m2 Dr. Gloria Barnett Work Phone: [facility] 04-23-2023 11:51-0400 Body weight 56.[address] Gloria Barnett Work Phone: [facility] 04-23-2023 11:51-0400 Diastolic blood pressure 64 mm[Hg] Dr. Gloria Barnett Work Phone: [facility] 04-23-2023 11:51-0400 Systolic blood pressure 117 mm[Hg] Dr. Gloria Barnett Work Phone: [facility] 03-04-2023 15:58-0400 Body height 167.[address] Gloria Barnett Work Phone: [facility] 03-04-2023 15:54-0400 Body mass index (BMI) [Ratio] 19.5 kg/m2 Dr. Gloria Barnett Work Phone: [facility] 03-04-2023 15:54-0400 Body weight 54.[address] Gloria Barnett Work Phone: [facility] 02-25-2023 11:39-0400 Body height 167.[address] Gloria Barnett Work Phone: [facility] 02-25-2023 11:39-0400 Body mass index (BMI) [Ratio] 18.9 kg/m2 Dr. Gloria Barnett Work Phone: [facility] 02-25-2023 11:39-0400 Body weight 53.[address] Gloria Barnett Work Phone: [facility] 02-25-2023 11:39-0400 Diastolic blood pressure 74 mm[Hg] Dr. Gloria Barnett Work Phone: [facility] 02-25-2023 11:39-0400 Systolic blood pressure 118 mm[Hg] Dr. Gloria Barnett Work Phone: 2(217)844-338089 [place] [address] 02-04-2023 11:51-0400 Body mass index (BMI) [Ratio] 19 kg/m2 Dr. Gloria Barnett Work Phone: [facility] 02-04-2023 11:51-0400 Body weight 53.[address] Gloria Barnett Work Phone: [facility] 02-04-2023 11:51-0400 Diastolic blood pressure 76 mm[Hg] Dr. Gloria Barnett Work Phone: [facility] 02-04-2023 11:51-0400 Systolic blood pressure 129 mm[Hg] Dr. Gloria Barnett Work Phone: [facility] 01-29-2023 09:16-0400 Body height 167.[address] Gloria Barnett Work Phone: [facility] 01-29-2023 09:16-0400 Body mass index (BMI) [Ratio] 18.9 kg/m2 Dr. Gloria Barnett Work Phone: [facility] 01-29-2023 09:16-0400 Body weight 53.[address] Gloria Barnett Work Phone: [facility] 01-29-2023 09:16-0400 Diastolic blood pressure 72 mm[Hg] Dr. Gloria Barnett Work Phone: [facility] 01-29-2023 09:16-0400 Systolic blood pressure 116 mm[Hg] Dr. Gloria Barnett Work Phone: [facility] 07-10-2022 14:31-0500 Body temperature 97.2 [degF] No Primary Care Physician [facility] 07-10-2022 14:31-0500 Diastolic blood pressure 76 mm[Hg] No Primary Care Physician [facility] 07-10-2022 14:31-0500 Heart rate 80 /min No Primary Care Physician [facility] 07-10-2022 14:31-0500 Respiratory rate 16 /min No Primary Care Physician [facility] 07-10-2022 14:31-0500 SaO2% (BldA) [Mass fraction] 97 % No Primary Care Physician [facility] 07-10-2022 14:31-0500 Systolic blood pressure 123 mm[Hg] No Primary Care Physician [facility] 07-10-2022 11:31-0500 Body height 167.64 cm No Primary Care Physician [facility] 07-10-2022 11:31-0500 Body mass index (BMI) [Ratio] 19.2 kg/m2 No Primary Care Physician [facility] 07-10-2022 11:31-0500 Body weight 54 kg No Primary Care Physician [facility] 06-26-2022 11:05-0500 Body height 167.64 cm No Primary Care Physician [facility] Work Phone: 06-24-2022 15:09-0500 Body mass index (BMI) [Ratio] 19.3 kg/m2 No Primary Care Physician [facility] 06-24-2022 15:09-0500 Body weight 54.43 kg No Primary Care Physician [facility] 06-24-2022 15:09-0500 Diastolic blood pressure 82 mm[Hg] No Primary Care Physician [facility] 06-24-2022 15:09-0500 Systolic blood pressure 133 mm[Hg] No Primary Care Physician [facility] Encounters Encounter Date Encounter Type Care Provider Facility Start: 02-26-2025 ambulatory Gloria Barnett Facility:[facility] Start: 02-21-2025 ambulatory Natalie Hutson NP Facility :[facility] Start: 10-18-2023 End: 10-18-[address] Gloria Barnett Work Phone: [facility] Work Phone: Start: 10-18-2023 End: 10-18-[address] Gloria Barnett Work Phone: [facility] Work Phone: Start: 10-18-2023 End: 10-18-[address] Gloria Barnett Work Phone: [facility] Work Phone: Start: 09-07-2023 Non-patient / Non-visit Dr. Raúl Barnett Work Phone: [facility] Start: 09-06-2023 Non-patient / Non-visit Dr. Raúl Barnett Work Phone: [facility] Start: 09-05-2023 Non-patient / Non-visit Dr. Raúl Barnett Work Phone: [facility] Start: 09-05-2023 End: 09-07-2023 Evaluation and management of inpatient Dr. Gloria Barnett Work Phone: [facility] Work Phone: Start: 09-03-2023 End: 09-03-[address] Gloria Barnett Work Phone: [facility] Work Phone: Start: 09-03-2023 End: 09-03-[address] Gloria Barnett Work Phone: [facility] Work Phone: Start: 08-24-2023 End: 08-24-[address] Gloria Barnett Work Phone: [facility] Work Phone: Start: 08-16-2023 End: 08-16-[address] Gloria Barnett Work Phone: [facility] Work Phone: Start: 08-16-2023 End: 08-16-[address] Gloria Barnett Work Phone: [facility] Work Phone: Start: 08-12-2023 End: 08-12-[address] Gloria Barnett Work Phone: [facility] Work Phone: Start: 08-12-2023 End: 08-12-[address] Gloria Barnett Work Phone: [facility] Work Phone: Start: 07-27-2023 End: 07-27-[address] Gloria Barnett Work Phone: [facility] Work Phone: Start: 07-27-2023 End: 07-27-[address] Gloria Barnett Work Phone: [facility] Work Phone: Start: 07-26-2023 End: 07-26-[address] Gloria Barnett Work Phone: [facility] Work Phone: Start: 07-07-2023 End: 07-07-[address] Gloria Barnett Work Phone: [facility] Work Phone: Start: 07-01-2023 End: 07-01-2023 ambulatory STEVEN Valdes SWANSON [facility] Start: 06-14-2023 End: 06-14-[address] Gloria Barnett Work Phone: [facility] Work Phone: Start: 05-19-2023 End: 05-19-[address] Gloria Barnett Work Phone: [facility] Work Phone: Start: 05-04-2023 End: 05-04-2023 ambulatory [facility] Start: 04-23-2023 End: 04-23-[address] Gloria Barnett Work Phone: [facility] Work Phone: Start: 03-04-2023 End: 03-04-[address] Gloria Barnett Work Phone: [facility] Work Phone: Start: 03-04-2023 End: 03-04-[address] Gloria Barnett Work Phone: [facility] Work Phone: Start: 02-25-2023 End: 02-25-[address] Gloria Barnett Work Phone: [facility] Work Phone: Start: 02-25-2023 End: 02-25-[address] Gloria Barnett Work Phone: [facility] Work Phone: Start: 02-09-2023 End: 02-09-[address] Gloria Barnett Work Phone: [facility] Work Phone: Start: 02-09-2023 End: 02-09-[address] Gloria Barnett Work Phone: [facility] Work Phone: Start: 02-04-2023 End: 02-04-[address] Gloria Barnett Work Phone: [facility] Work Phone: Start: 02-04-2023 End: 02-04-[address] Gloria Barnett Work Phone: [facility] Work Phone: Start: 02-04-2023 End: 02-04-[address] Gloria Barnett Work Phone: [facility] Work Phone: Start: 02-02-2023 End: 02-02-[address] Gloria Barnett Work Phone: [facility] Work Phone: Start: 02-02-2023 End: 02-02-[address] [facility] Work Phone: Start: 01-29-2023 End: 01-29-[address] Gloria Barnett Work Phone: [facility] Work Phone: Start: 01-28-2023 End: 01-28-[address] Gloria Barnett Work Phone: [facility] Work Phone: Start: 01-28-2023 End: 01-28-[address] [facility] Start: 01-27-2023 End: 01-27-[address] Gloria Barnett Work Phone: [facility] Work Phone: Start: 01-27-2023 End: 01-27-[address] [facility] Start: 01-25-2023 End: 01-25-[address] Gloria Barnett Work Phone: [facility] Work Phone: Start: 01-25-2023 End: 01-25-[address] Gloria Barnett Work Phone: [facility] Work Phone: Start: 01-20-2023 End: 01-20-2023 [facility] Start: 01-18-2023 End: 01-18-2023 ambulatory [facility] Work Phone: Start: 01-18-2023 End: 01-18-2023 [facility] Start: 12-14-2022 End: 12-14-2022 ambulatory [facility] Work Phone: Start: 12-14-2022 End: 12-14-2022 Patient encounter procedure [facility] Start: 09-08-2022 End: 09-08-2022 ambulatory No Primary Care Physician [facility] Work Phone: Start: 09-08-2022 End: 09-08-2022 Patient encounter procedure No Primary Care Physician [facility] Start: 07-10-2022 End: 07-10-2022 Admission to same day surgery center No Primary Care Physician [facility] Start: 07-10-2022 End: 07-10-2022 ambulatory No Primary Care Physician [facility] Work Phone: Start: 07-10-2022 Non-patient / Non-visit No Flores elodia Care Physician [facility] Start: 07-08-2022 End: 07-08-2022 ambulatory No Primary Care Physician [facility] Work Phone: Start: 07-08-2022 End: 07-08-2022 Patient encounter procedure No Primary Care Physician [facility] Start: 07-03-2022 End: 07-03-2022 ambulatory No Primary Care Physician [facility] Work Phone: Start: 07-03-2022 End: 07-03-2022 Patient encounter procedure No Primary Care Physician [facility] Start: 06-26-2022 End: 06-26-2022 ambulatory No Primary Care Physician [facility] Work Phone: Start: 06-26-2022 End: 06-26-2022 Patient encounter procedure No Primary Care Physician [facility] Start: 06-24-2022 End: 06-24-2022 Patient encounter procedure No Primary Care Physician [facility] Start: 05-01-2022 End: 05-01-2022 ambulatory [facility] Work Phone: Start: 05-01-2022 End: 05-01-2022 Patient encounter procedure [facility] Start: 04-29-2022 End: 04-29-2022 ambulatory [facility] Work Phone: Start: 04-29-2022 End: 04-29-2022 Patient encounter procedure [facility] Start: 03-24-2022 [facility] Start: 03-24-2022 Registered Referred No Primary Care Physician [facility] Procedures Date Procedure Procedure Detail Performing Clinician Start: 09-05-[address] Gloria Barnett Work Phone: Start: 09-05-2023 Chlamydia trachomatis (PCR) Dr. Gloria Zuleta Work Phone: Start: 09-03-2023 Group B Streptococcus Culture Dr. Gloria Barnett Work Phone: Start: 08-16-2023 Ultrasound scan for growth Dr. Gloria Barnett Work Phone: Start: 02-09-2023 Ultrasound scan - obstetric Dr. Gloria Smi th Work Phone: Start: 02-04-[address] Gloria Barnett Work Phone: Start: 02-02-[address] Gloria Barnett Work Phone: Start: 01-29-[address] Gloria Barnett Work Phone: Start: 01-28-2023 Bacteria identified in Urine by Culture Dr. Gloria Barnett Work Phone: Start: 01-25-2023 MRI of brain without contrast Dr. Gloria Barnett Work Phone: Start: 09-08-2022 X-ray of cervical spine No Primary Care Physician Start: 07-10-2022 Dilation and curettage of uterus No Primary Care Physician Start: 07-08-2022 Transvaginal echography No Primary Care Physician H/O: surgery Status post dila tion and curettage No Primary Care Physician Plan of Treatment Date Care Activity Detail Author Start: 09-07-2023 Patient discharge [facility] Start: 09-07-2023 [facility] Start: 09-06-2023 Administration of blood product [facility] Start: 09-05-2023 Administration of medication [facility] Start: 09-05-2023 Application of ice collar, cap or bag [facility] Start: 09-05-2023 Catheterization of vein [facility] Start: 09-05-2023 Introduction of urinary catheter [facility] Start: 09-05-2023 Measuring intake and output [facility] Start: 09-05-2023 Notification of physician [facility] Start: 09-05-2023 Procedure discontinued [facility] Start: 09-05-2023 Provision of activity privileges [facility] Start: 09-05-2023 Vital signs measurements [facility] Start: 09-05-2023 End: 09-05-2023 [facility] Start: 09-05-2023 Documentation procedure [facility] Start: 09-05-2023 Admission procedure [facility] Start: 09-05-2023 Consultation [facility] Start: 09-03-2023 Procedure [facility] Start: 02-04-2023 Bacteria identified in Urine by Culture [facility] Start: 02-04-2023 [facility] Start: 02-02-2023 Transvaginal obstetric ultrasonography Transvaginal w/Preg US [facility] Start: 01-28-2023 Bacteria identified in Urine by Culture Urine Culture [facility] Start: 07-10-2022 Anesthesia incomplete/missed ANESTH INC/MISSED AB PROC [facility] Start: 07-10-2022 Tx incomplete any trimester surgical TREATMENT OF MISCARRIAGE [facility] Start: 07-10-2022 Tx missed first trimester surgical CARE OF MISCARRIAGE [facility] Start: 07-10-2022 Ambulation without limitation [facility] Start: 07-10-2022 Medical regimen orders management [facility] Start: 07-10-2022 Medication education [facility] Start: 07-10-2022 Patient discharge [facility] Start: 07-10-2022 Procedure discontinued [facility] Start: 07-10-2022 Taking patient vital signs [facility] Start: 07-10-2022 Vital signs measurements [facility] Start: 07-10-2022 [facility] Start: 07-10-2022 Admission procedure [facility] Albumin/Globulin [Ma ss Ratio] in Serum or Plasma by Electrophoresis [facility] CBC W Auto Different ial panel - Blood [facility] Work Phone: CBC W Auto Different ial panel - Blood [facility] CBC W Auto Different ial panel - Blood [facility] CBC W Auto Different ial panel - Blood [facility] Chlamydia deoxyribon ucleic acid detection [facility] Work Phone: Chlamydia deoxyribon ucleic acid detection [facility] Chlamydia deoxyribon ucleic acid detection [facility] Chlamydia deoxyribon ucleic acid detection [facility] Choriogonadotropin ( test) [Presence] in Serum or Plasma [facility] Work Phone: Complement C3 [Mass/ volume] in Serum or Plasma [facility] Drugs identified in Urine by Screen method [facility] Work Phone: Drugs identified in Urine by Screen method [facility] Electrophoresis: albumin [facility] Electrophoresis: [id number] [facility] Electrophoresis: [id number] [facility] Electrophoresis: rex ma globulin [facility] Globulin measurement [facility] Hepatitis B surface antigen measurement [facility] Work Phone: Hepatitis B surface antigen measurement [facility] Hepatitis B surface antigen measurement [facility] Hepatitis B surface antigen measurement [facility] Hepatitis C antibody measurement [facility] Work Phone: Hepatitis C antibody measurement [facility] Hepatitis C antibody measurement [facility] Hep[facility] C antibody measurement [facility] HIV 1+2 Ab+HIV1 p24 Ag [Presence] in Serum or Plasma by Immunoassay [facility] Work Phone: HIV 1+2 Ab+HIV1 p24 Ag [Presence] in Serum or Plasma by Immunoassay [facility] HIV 1+2 Ab+HIV1 p24 Ag [Presence] in Serum or Plasma by Immunoassay [facility] HIV 1+2 Ab+HIV1 p24 Ag [Presence] in Serum or Plasma by Immunoassay [facility] Neisseria gonorrhoea e rRNA [Presence] in Unspecified specimen by WALESKA with probe detection [facility] Nuclear Ab [Presence ] in Serum [facility] Patient Education After a Vagina l Depression [facility] Work Phone: Patient referral [facility] Work Phone: PCR test for Chlamyd ia trachomatis [facility] Protein electrophore sis panel - Serum or Plasma [facility] Rubella IgG measurement [facility] Work Phone: Rubella IgG measurement [facility] Rubella IgG measurement [facility] Rubella IgG measurement [facility] Serum protein electrophoresis [facility] Total globulins measurement [facility] Treponema sp Ab [Pre sence] in Serum [facility] Work Phone: Treponema sp Ab [Pre sence] in Serum [facility] Treponema sp Ab [Pre sence] in Serum [facility] Treponema sp Ab [Pre sence] in Serum [facility] Ultrasound scan - obstetric [facility] US Pelvis transvaginal [facility] Work Phone: [facility] Immunizations Immunization Date Immunization Notes Care Provider Master beltranotto 07-07-2023 tetanus toxoid, redu yamilex diphtheria toxoid, and acellular pertussis vaccine, adsorbed Dr. Gloria Barnett Work Phone: [facility] 04-12-2023 influenza, injectabl e, quadrivalent, preservative free Dr. Gloria Barnett Work Phone: [facility] 2022 tetanus toxoid, redu yamilex diphtheria toxoid, and acellular pertussis vaccine, adsorbed [facility] 03-24-2022 influenza, injectabl e, quadrivalent, preservative free Dr. Gloria Barnett Work Phone: [facility] 03-24-2022 influenza, seasonal, injectable [facility] Payers Date Payer Category Payer Self-pay [id number] Unknown [id number] 1990 Unknown [id number] 1990 Unknown [id number] Private Health Insurance [id number] Unknown [id number] Unknown [id number] Social History Date Type Detail Facility Tobacco smoking stat NHIS Unknown if ever smoked [facility] Work Phone: Start: 1990 Sex Assigned At Female [facility] Start: 06-26-2022 End: 10-18-2023 Tobacco smoking status NHIS Unknown if ever smoked [facility] Goals Date Patient Goal Desired Activity /State Mental Status Date Assessment Result Facility 07-10-2022 Cognitive function Level Of Cons ciousness Awake;Appropriate [facility] Work Phone: 07-10-2022 Cognitive function Patient Nathan hope Person;Place;Time [facility] Work Phone: Clinical Notes 09-05-2023 to 10-18-2023 Note Date & Type Note Facility 10-18-2023 Note [facility] Pap Smear Specimen Adequacy October 18, 2023 2:14pm Comment . Satisfactory for evaluation. No endocervical component is identified. Comment on above: Satisfactory for carson luation. No endocervical component is identified. 09-06-2023 Progress note Note Date/Time September 06, 2023 2:27 pm [facility] Medical Records Department [address] [place] [address] Progress Note - OBGYN 09/06/23 1426 MR#: [id number] Acct: [id number] Name: ALIA ROSAS Rep #:[id number] : 1990 33 From: Samia Parham DO PCP: Dr. Gloria Barnett MD Status:ADM IN [facility] Subjective Subjective Patient doing well without complaints. Tolerating PO. Ambulating and voiding without difficulty. Feeding well. Denies chest pain, shortness of breath, calf pain/swelling, fevers, chills, lightheadedness. Objective Data Objective Data Vital Signs: Vital Signs Temp Pulse Resp BP Pulse Ox O2 Del Method 97.8 F 86 16 110/57 L 99 Room Air 09/06/23 12:48 09/06/23 12:48 09/06/23 12:48 09/06/23 12:48 09/06/23 09:30 09/06/23 09:30 Oxygen Delivery Method Room Air Weight: 139 lb 4 oz Body Mass Index (BMI) 22.4 Intake & Output: Intake and Output for Last 24 Hours 09/04/23 09/05/23 09/06/23 23:59 23:59 23:59 Intake Total 3928.97 / 3928.97 250 / 250 Output Total 1350 / 1350 1500 / 1500 Balance 2578.97 / 2578.97 -1250 / -1250 Lab / Micro Data 09/05/23 08:15 Labs: Laboratory Results - last 24 hr 09/06/23 01:30: Screen NEGATIVE, Baby's Blood Type A POSITIVE, Baby's HEATHER NEGATIVE Micro: Microbiology 09/05/23 10:01 Urine, Clean Catch Chlamydia trachomatis (PCR) - Final 09/05/23 10:01 Urine, Clean Catch Neisseria gonorrhoeae (PCR) - Final ROS Constitutional Constitutional: Denies chills, fatigue, fever(s), poor appetite or weakness Eyes Eyes: Denies blurry vision, change in vision, seeing flashes or spots in vision ENT HEENT: Denies dizziness, headache(s), loss taste/smell or sore throat Cardiovascular Cardiovascular: Denies chest pain, dizziness, dyspnea, irregular heart rhythm, palpitations or rapid heart rate Respiratory/Chest Respiratory/Chest: Denies chest tightness, cough, dyspnea or breast pain Gastrointestinal Gastrointestinal: Denies abdominal pain, constipation or vomiting Genitourinary Genitourinary: Denies dysuria or flank pain Musculoskeletal Musculoskeletal: Denies difficulty walking, joint pain, limited range of motion or numbness Neurologic Neurologic: Denies abnormal movements, abnormal speech, dizziness, numbness, seizure-like activity or syncope Psychiatric Psychiatric: Denies anxiety, behavioral changes, change in appetite, confusion, depression or suicidal thoughts Physical Exam Const alert, oriented x3 and no apparent distress General Appearance: cooperative and comfortable Resp normal respiratory effort Cardio regular rate GI normal to inspection, nondistended, normoactive bowel sounds GI Narrative: uterus is firm below umbilicus Palpation: soft Back/Spine no CVA tenderness and thoraco-lumbar ROM normal Extremity normal to inspection, no clubbing, cyanosis or edema, no calf tenderness and no pedal edema Psych mental status grossly normal, thought process normal, cooperative, affect normal, speech normal, activity/motor behavior normal, denies homicidal ideationand denies suicidal ideation Assessment & Plan (1) Cholestasis during : (2) Rh negative status during : COMMENT: Rhogam at 28 weeks and PRN received rhogam 1st trimester for bleeding-01/29/23 +antibody due to rhogam (3) Status post vaginal delivery: PLAN: Plan s/p PPD # 1 1. routine post delivery care 2. bottle feeding 3. rh neg-rhogam workup ordered 4. rubella immune 09/06/23 1427 <Electronically signed by Samia Parham DO> Cosigner Signature (if applicable): CC: ~ Signed [facility] Work Phone: 1(313) 613-781103-04-2024 Discharge summary Author Samia Bradley [facility] September 05, 2023 11:23pm Note Date/Time September 05, 2023 11:2 3pm [facility] Medical Records Department [address] [place] [address] Instructions for Home/Discharge Instructions 09/05/23 2323 MR#: [id number] Acct: [id number] Name: ALIA ROSAS Rep #:[id number] : 1990 33 From: Samia Parham DO PCP: Dr. Gloria Barnett MD Status:ADM IN Discharge Instructions Diet Discharge Diet: No restrictions Activity Discharge Activity: Return to Normal Activity, May Not Drive (while taking narcotic pain medications.) and May Shower May resume sexual activity in: 4-6 weeks Dressing / Incision Call your doctor if your incision/area has: Continuous Slow Oozing, Sudden Increased Bleeding, Increased Pain/ Swelling, Increased Redness and Foul Smelling Discharge Follow Up Care Please Follow Up With: Samia Parham DO When: Call [phone] to make an appointment with your doctor in 6 weeks. If you had elevated blood pressure or 4th degree laceration, you will need to be seen in 2 weeks. Test Results: Test results from this visit will be discussed in further detail at your follow- up appointment, if applicable. Discharge Plan Admission Admit Date/Time: 09/05/23 07:15 Attending Provider: Samia Parham Primary Care Provider: Gloria Barnett Discharge Orders/Prescriptions Prescriptions: No Action lamotrigine [Lamictal] 100 mg tablet 100 mg PO QHS PNV-DHA 27 mg iron-1 mg -300 mg capsule 1 cap PO DAILY bupropion HCl [Wellbutrin XL] 150 mg tablet extended release 24 hr 450 mg PO QAM ondansetron HCl 4 mg tablet 4 mg PO Q6H PRN (Reason: nausea and vomiting) Qty: 30 3RF Referrals / Follow Up: Gloria Barnett MD [Primary Care Provider] - 09/05/23 2323<Electronically signed by Samia Parham DO>Samia Parham DO CC: Dr. Gloria Barnett MD ~ Signed [facility] Work Phone: [phone] Procedure [facility] 09-05-2023 Progress note Author [facility]ia [facility] September 05, 2023 7:02pm Note Date/Time September 05, 2023 7:01 pm [facility] Medical Records Department [address] [place] [address] Progress Note 09/05/23 1856 MR#: [id number] Acct: [id number] Name: ALIA ROSAS Rep #:[id number] : 1990 33 From: Samia Parham DO PCP: Dr. Gloria Barnett MD Status:ADM IN Location: [place] [address] Progress Note pt vomited when moved to sitting up. She states feels better now. current tracing: FHT:Bl 120 Moderate variability reactive no decelerations category I tracing Navarino: q 2 min cx: slightly more edematous but is 6/70/0, MVU's are 200's reviewed tracing abnormalities since last note: couple of early decelerations prior to exam, otherwise still moderate variability, cat 1 overall A/P: continue pitocin and position change as needed 09/05/23 1902 <Electronically signed by Samia Parham DO> [facility]ham DO [facility] Signature (if applicable): CC: ~ Signed [facility] Work Phone: [phone] Progress note Author [facility] September 05, 2023 4:54pm Note Date/Time September 05, 2023 4:54 pm [facility] Medical Records Department [address] [place] [address] Progress Note 09/05/23 1653 MR#: [id number] Acct: [id number] Name: ALIA ROSAS Rep #:[id number] : 1990 33 From: Samia Parham DO PCP: Dr. Gloria Barnett MD Status:ADM IN Location: [id number] Progress Note pt is comfortable with epidural. feeling some pain that is mild. current tracing: FHT: Moderate variability reactive no decelerations category I tracing Navarino: unable to warp picker Contractions 5/80/-1, IUPC placed - after placed q 1-2 min contractions noted reviewed tracing abnormalities since last note: no changes A/P: comfortable with epidural continue pitocin and increase as needed 09/05/23 1654 <Electronically signed by Samia Parham DO> Samia Parham DO Cosigner Signature (if applicable): CC: ~ Signed [facility] Work Phone: 1(493) 335-908703-03-2024 Progress note Author Samia [facility] September 05, 2023 11:58am Note Date/Time September 05, 2023 11:5 8am [facility] Medical Records Department [address] [place] [address] Progress Note - OBGYN 09/05/23 1156 MR#: [id number] Acct: [id number] Name: ALIA ROSAS Rep #:[id number] : 1990 33 From: Samia Parham DO PCP: Dr. Gloria Barnett MD Status:ADM IN [facility] Subjective Subjective pt is sitting up in bed comfortable. massey is out and she consents to AROM. current tracing: FHT: Moderate variability reactive no decelerations category I tracing Navarino: q 2 min Contractions cx: 570/-2, membranes ruptured and clear fluid returned A/P: cholestasis of - IOL continue with pitocin epidural prn. Objective Data Objective Data Vital Signs: Vital Signs Temp Pulse BP Pulse Ox 99.0 F 78 132/63 H 98 09/05/23 10:47 09/05/23 10:47 09/05/23 10:47 09/05/23 10:47 Weight: 139 lb 4 oz Body Mass Index (BMI) 22.4 Intake & Output: Intake and Output for Last 24 Hours 09/03/23 09/04/23 09/05/23 23:59 23:59 23:59 Intake Total 81.47 / 81.47 Balance 81.47 / 81.47 Lab / Micro Data 09/05/23 08:15 Labs: Laboratory Results - last 24 hr 09/05/23 08:15: WBC 8.9, RBC 3.56 L, Hgb 11.5 L, Hct 33.6 L, MCV 94.4, MCH 32.3 H, MCHC 34.2, RDW Std Deviation 44.6 H, RDW Coeff of Zuleima 12.9, Plt Count 214, MPV 10.0, Immature Gran % (Auto) 1.800 H, Neut % (Auto) 68.8, Lymph % (Auto) 19.0, Crenshaw % (Auto) 8.1, Eos % (Auto) 1.6, Baso % (Auto) 0.7, Absolute Neuts (auto) 6.2, Absolute Lymphs (auto) 1.70, Nucleated RBC % 0, Syphilis Total Ab Non-reactive, Blood Type O NEGATIVE, Antibody Screen POSITIVE, Antibody Identification ANTI-D 09/05/23 1158 <Electronically signed by Samia Parham DO> Cosigner Signature (if applicable): CC: ~ Signed [facility] Work Phone: 1([phone]) 451-363803-03-2024 History and physical note Author Samia Bradley [facility] September 05, 2023 8:50am Note Date/Time September 05, 2023 8:51 am [facility] Medical Records Department [address] [place] [address] H&P Exam - CASKET [employer]SEM[employer]ER METAL 09/05/23 0845 MR#: [id number] Acct: [id number] Name: ALIA ROSAS Rep #:[id number] : 1990 33 From: Samia Parham DO PCP: Dr. Gloria Barnett MD Status:ADM IN Location: [id number] HPI - General General Date of Admission: 09/05/23 HPI Narrative ALIA ROSAS, is a 33 y/o @ 37 weeks 0 days who presents to L&D for IOL due to strong suspicion for cholestasis of . She has extreme itching of hands and feet and worsening last few days to legs and arms. LFTs are normal, however the bile acids are still pending. We discussed the risks vs benefits of IOL vs observation until the bile acids came back plus Actigall treatment and patient preferred IOL. Maternal Data Information JUAN Calculator Estimated Delivery Date Method Current WG Current Estimate 09/26/23 LMP (Certain) 37w 0d Other Estimates 09/26/23 Ultrasound #1 37w 0d PFSH PFSH Medical History Anxiety Back pain Depression History of echocardiogram Incomplete Injury of head and neck Loss of consciousness Non-smoker Home Medications lamotrigine 100 mg tablet (Lamictal) 100 mg PO QHS anxiety 06/12/22 [History Last Taken Unknown] multivitamin no.47-iron fum 27 mg-folate no.1 1 mg-dha 300 mg capsule (PNV-DHA)1 cap PO DAILY 06/12/22 [History Last Taken 09/05/23] bupropion HCl 150 mg 24 hr tablet, extended release (Wellbutrin XL) 450 mg PO QAM Anxiety 02/25/23 [History Last Taken Unknown] ondansetron HCl 4 mg tablet 4 mg PO Q6H PRN nausea and vomiting #30 tabs 04/23/23 [Rx Last Taken Unknown] Allergy/AdvReac Type Severity Reaction Status Date / Time egg Allergy Intermediate Low blood Verified 09/03/23 10:03 pressure Penicillins Allergy Mild Rash Verified 09/03/23 10:03 wheat Allergy Mild Rash Verified 09/03/23 10:03 Family History Aunt Breast cancer, Onset Age: 40 maternal Surgical History Status post dilation and curettage [place] teeth extracted Social History adopted: No household members: spouse housing: house current occupational status: employed 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 @ [employer] current occupational exposures/hazards: No pets and animals: Yes pets and animals: dog(s) history of recent travel: Yes ([place]) out of state: Yes out of country: No sexually active: Yes Smoking Status: Never smoker alcohol intake: former details: socially prior to substance use type: does not use diet: gluten free and other well-balanced diet: daily or most days caffeine: No eating out: 1-3 times/week during the past year weight has: remained stable what type of physical activity do you participate in: none svitlana/bahai: [employer] seatbelt use: always do you feel safe at home: Yes additional social history: Mary Jo Roa History 2 Elective abortions Hx Para 0 Spontaneous abortions 1 Hx # Term Pregnancies Ectopic pregnancies Hx # Pregnancies Multiple births # of living children 0 Past Pregnancies Del. Date Name GA/Weeks Outcome Route Bth Weight Gen Labor Lgth Anesthesia Del Locatn Provider FOB Unknown miscarriage 06/25. 11-12 wks Delivery Date: Last Updated by: Sadia Wild D&C 07/2022. Visit Details Expected Delivery Route/Plan Labor Preferences- CB/BF classes: enc labor support person: [id number] labor intervention preferences: [] pain management options preferred: [] cut cord/dad catch: [] : not able to PP control planned: [] discussed possible routes of delivery and associated risks: [] special requests: [] Plans Covid status: [] Flu vaccine: obtained Tdap vaccine:obtained Rhogam: obtained 07/07/2023 LARC form signed:completed Problem list reviewed and updated with the most current plan of care details and appropriate orders placed. Relevant counseling for the gestational age provided. Continue routine care and follow up unless otherwise noted in visit notes/problem list details OB Flowsheet Initial Weight: Not Recorded Date -?-?-?-?-?-?-?-?-?-?-?-?- EGA Weight BP Urine Prot -?-?-?-?-?-?-?-?-?-?-?-?- Glucose FHR FuHt Pres Dilation -?--?-?-?-?-?-?-?-?-?-?-?- Effaced St Visit Note 02/04/23 -?-?-?-?-?-?-?-?-?-?-?-?- 6w 4d 118 lb 129/76 -?-?-?-?-?-?-?-?-?-?-?-?- -?-?-?-?-?-?-?-?-?-?-?-?- MILO- pt had ultra sound 2 days ago at [employer]. She was bleeding until yesterday when she started the progesterone. CRL was consistent with 6 weeks 2 days and there was a heart rate of 99. plan for zofran for nausea and return for NIPT/carrier screen pack. rpt ultrasound wednesday or wednesday next week. 02/25/23 -?-?-?-?-?-?-?-?-?-?-?-?- 9w 4d 117 lb 6 oz 118/74 Nega tive -?-?-?-?-?-?-?-?-?-?-?-?- Negative 150 -?-?-?-?-?-?-?-?-?-?-?-?- JV- CRL measurin g appropriate today. bleeding has slowed down. ordering NIPT 03/26/23 -?-?-?-?-?-?-?-?-?-?-?-?- 13w 5d 121 lb 128/54 Negative -?-?-?-?-?--?-?-?-?-?-?-?- Negative 155 -?-?-?-?-?-?-?-?-?-?-?-?- JV- measuring ap propriate for GA. no complaints, bleeding stopped. normal NIPT 04/23/23 -?-?-?-?-?-?-?-?-?-?-?-?- 17w 5d 124 lb 8 oz 117/64 Nega tive -?-?-?-?-?-?-?-?-?-?-?-?- Negative 157 -?-?-?-?-?-?-?-?-?-?-?-?- JV- no cramping or bleeding. anatomy scan is ordered with [facility]. 05/19/23 -?-?-?-?-?-?-?-?-?-?-?-?- 21w 3d 125 lb 4 oz 132/87 Nega tive -?-?-?-?-?-?-?-?-?-?-?-?- Negative 150 -?-?-?-?-?-?-?-?-?-?-?-?- JV- anatomy show s low lying placenta. pt is avoiding intercourse until follow up us at 28 weeks. 06/14/23 -?-?-?-?-?-?-?-?-?-?-?-?- 25w 1d 130 lb 6 oz 128/77 Nega tive -?-?-?-?-?-?-?-?-?-?-?-?- Negative 157 25 -?-?-?-?-?-?-?-?-?-?-?-?- JV- no complaint s today. good movement. having a lot of nausea still. no further bleeding. 28 week labs ordered 07/07/23 -?-?-?-?-?-?-?-?-?-?-?-?- 28w 3d 132 lb 8 oz 119/66 Nega tive -?--?-?-?-?-?-?-?-?-?-?-?- Negative 155 27 -?-?-?-?-?-?-?-?-?-?-?-?- LC-no complaints . no vb/ctx/lof. good fm. tdap.larc and rhogam provided. 28 week labs pending. 07/26/23 -?-?-?-?-?-?-?-?-?-?-?-?- 31w 1d 133 lb 8 oz 118/63 Nega tive -?-?-?-?-?-?-?-?-?-?-?-?- Negative 150 29.5 -?-?-?-?-?-?-?-?-?-?-?-?- LC-no vb/ctx/lof .good fm. 3 hour glucose scheduled for tomorrow. 08/12/23 -?-?-?-?-?-?-?-?-?-?-?-?- 33w 4d 136 lb 111/64 Negative -?-?-?-?-?-?-?-?-?-?-?-?- Negative 145 30 -?-?-?-?-?-?-?-?-?-?-?-?- SM- no vb lof go od fm n oreuglar ctx ordered growth SM- no vb lof good fm n oreu glar ctx ordered growth US ordered thryoid labs 08/24/23 -?-?-?-?-?-?-?-?-?-?-?-?- 35w 2d 137 lb 114/74 Negative -?-?-?-?-?-?-?-?-?-?-?-?- Negative 145 32 -?-?-?-?-?-?--?-?-?-?-?-?- KW- no vb/lof/re gular ctx. good fm. growth was 52 % 09/03/23 -?-?-?-?-?-?-?-?-?-?-?-?- 36w 5d 138 lb 4 oz 126/82 Nega tive -?-?-?-?-?-?-?-?-?-?--?-?- Negative 143 34 Cephalic 1 -?-?-?-?-?-?-?-?-?-?-?-?- 50 -3 JV- itchin g of hands and feet and restless legs at night. ordering bile acids. growth 2 weeks ago normal ARTHUR today is 13. gbs collected. if worsening symptoms of itching may just deliver this weekend. ROS Constitutional Constitutional: Denies change in weight, fatigue, fever(s), headache(s), poor appetite or weakness Eyes Eyes: Denies blurry vision, change in vision, seeing flashes or spots in vision ENT HEENT: Denies dizziness, headache(s), loss taste/smell or sore throat Cardiovascular Cardiovascular: Denies chest pain, dizziness, dyspnea, irregular heart rhythm, leg edema, palpitations, rapid heart rate or vomiting Respiratory/Chest Respiratory/Chest: Denies chest tightness, cough, dyspnea or breast pain Gastrointestinal Gastrointestinal: Denies abdominal pain, anorexia, constipation, cramping, diarrhea, hemorrhoids, vomiting or weight changes Genitourinary Genitourinary: Denies dysuria, flank pain, genital lesions, genital pain, urinary frequency or urinary urgency Musculoskeletal Musculoskeletal: Denies back pain, difficulty walking, joint pain, limited range of motion, muscle cramps or numbness Integumentary Integumentary: Denies lesions or unusual bruising Neurologic Neurologic: Denies abnormal movements, abnormal speech, dizziness, numbness, seizure-like activity or syncope Psychiatric Psychiatric: Denies anxiety, behavioral changes, change in appetite, change in libido, cognitive impairment, confusion, depression, difficulty concentrating, hallucinations or suicidal thoughts Endocrine Endocrinology: Denies excessive sweating, polydipsia or polyuria Hematologic/Lymphatic Hematologic/Lymphatic: Denies easy bleeding, easy bruising or lymphadenopathy Allergic/Immunologic Allergic/Immunologic: Denies itchy eyes, lip swelling, seasonal rhinorrhea, rhinitis, throat swelling, tongue swelling, eczemia, wheezing or asthma Vital Signs Vital Signs Vital Signs: Weight Weight: 139 lb 4 oz Body Mass Index (BMI) 22.4 Physical Exam Const alert, oriented x3, no apparent distress and healthy appearing General Appearance: cooperative; Negative for anxious HEENT normocephalic Face and Sinus: normal facial exam Eyes EOMs intact bilaterally and no scleral icterus General Eye: normal appearance of both eyes Neck full ROM and supple Lymph Lymphatic: no lymphadenopathy noted Chest Chest: abnormal inspection of the chest Resp normal respiratory effort Effort and Inspection: able to speak in complete sentences Cardio regular rate GI soft to palpation and non-tender Inspection: gravid Palpation: soft; Negative for tender external exam normal Manual OB Exam: other massey catheter inserted into the cervix and inflated with 50 cc NS. The massey is already making it's way out of the cervix as effacement is 70%. current dilation after bulb insertion is 2/70/-2 Back/Spine no CVA tenderness Extremity normal to inspection, full ROM and no clubbing, cyanosis or edema General Extremity: Negative for calf tenderness or edema Skin Lesions: no lesions Rashes: no rashes Psych mental status grossly normal Labs Labs Labs: Blood Type O NEGATIVE Antibody Screen NEGATIVE Hct 33.6 % (37-47) L Hgb 11.5 g/dL (12.0-15.0) L Obstetrics Ultrasound Syphilis Total Ab Non-reactive Rubella IgG Antibody Reactive (Nonreactive) Hep Bs Antigen Non-Reactive (Nonreactive) Hepatitis C Antibody Non-Reactive (Nonreactive) HIV 1&2 Antibody Non-Reactive (Nonreactive) Glucose 1 Hr 50 gm 146 mg/dL (70-140) H Gest Glucose Tolerance MG/DL Miscellaneous Test Pending Assessment & Plan (1) Cholestasis during : (2) Itching: (3) Uterine size-date discrepancy, third trimester: COMMENT: growth uS ordered- 52% arthur 13 (4) Abnormal glucose affecting : COMMENT: nl 3 hr GTT (5) Rh negative status during : COMMENT: Rhogam at 28 weeks and PRN received rhogam 1st trimester for bleeding-01/29/23 +antibody due to rhogam (6) Supervision of high-risk : COMMENT: PRR , JUAN 09/26/23 girl Reymundo (7) : QUALIFIERS: Weeks of gestation: 36 weeks Qualified Code(s): Z3A.36 - 36 weeks gestation of COMMENT: genetic low risk carrier negative ntd not done. nl anatomy. (8) Psoriasis: COMMENT: steroid cream PRN (9) Thyroid disorder: COMMENT: pt to see Dr. Mckeon first trimester. may be subclinical. labs q trimester (10) Depression: COMMENT: wellbutrin, lamictal, not planning . PLAN: Plan Patient presents IOL, plan management for with massey + pitocin and then AROM later today Pain management: plans epidural. GBS pending RH neg. Management of any complications: cholestasis of - r/b/a discussed for IOL vs observation and patient would like ot proceed with IOL after reviewing risks of cholestasis I have reviewed the PFSH and made any clinically relevant updates. 09/05/23 0850 <Electronically signed by Samia Parham DO> Cosigner Signature (if applicable): CC: Dr. Gloria Barnett MD; Dr. Samia Parham DO~ Signed [facility] Work Phone: evaluation noteNo assessment information available [facility] Work Phone: Evaluation note* Diagnosis Onset Date Resolution Status Depression acute acute Supervision of high risk , antepartum acute Incomplete acute [facility] Work Phone: Evaluation note* Diagnosis Onset Date Resolution Status Depression acute [facility] Work Phone: Evaluation note* Diagnosis Onset Date Resolution Status Depression acute H/O miscarriage, currently acute Infertility acute acute Psoriasis acute Rh negative status during acute Spotting acute Supervision of high-risk acute Threatened acute Thyroid disorder acute [facility] Work Phone: Evaluation note* Diagnosis Onset Date Resolution Status Depression acute H/O miscarriage, currently acute Infertility acute acute Psoriasis acute Rh negative status during acute Spotting acute Supervision of high-risk acute Thyroid disorder acute Depression acute H/O miscarriage, currently acute Infertility acute acute Psoriasis acute Rh negative status during acute Spotting acute Supervision of high-risk acute Thyroid disorder [facility] Work Phone: Evaluation note* Diagnosis Onset Date Resolution Status Depression acute H/O miscarriage, currently acute Infertility acute acute Psoriasis acute Rh negative status during acute Spotting acute Supervision of high-risk acute Thyroid disorder acute Depression acute H/O miscarriage, currently acute Infertility acute acute Psoriasis acute Rh negative status during acute Spotting acute Supervision of high-risk acute Thyroid disorder acute Low lying placenta nos or wi thout hemorrhage, second trimester resolved Depression acute H/O miscarriage, currently acute Infertility acute acute Psoriasis acute Rh negative status during acute Spotting acute Supervision of high-risk acute Thyroid disorder acute Low lying placenta nos or wi thout hemorrhage, second trimester resolved Depression acute H/O miscarriage, currently acute Infertility acute acute Psoriasis acute Rh negative status during acute Spotting acute Supervision of high-risk acute Thyroid disorder acute Abnormal glucose affecting acute Depression acute H/O miscarriage, currently acute Infertility acute acute Psoriasis acute Rh negative status during acute Spotting acute Supervision of high-risk acute Thyroid disorder [facility] Work Phone: evaluation note* Diagnosis Onset Date Resolution Status Depression acute acute Psoriasis acute Rh negative status during acute Supervision of high-risk acute Thyroid disorder acute H/O miscarriage, currently resolved Infertility resolved Spotting resolved Depression acute acute Psoriasis acute Rh negative status during acute Supervision of high-risk acute Thyroid disorder acute H/O miscarriage, currently resolved Infertility resolved Low lying placenta nos or wi thout hemorrhage, second trimester resolved Spotting resolved Depression acute acute Psoriasis acute Rh negative status during acute Supervision of high-risk acute Thyroid disorder acute H/O miscarriage, currently resolved Infertility resolved Low lying placenta nos or wi thout hemorrhage, second trimester resolved Spotting resolved Depression acute acute Psoriasis acute Rh negative status during acute Supervision of high-risk acute Thyroid disorder acute H/O miscarriage, currently resolved Infertility resolved Spotting resolved Abnormal glucose affecting acute Depression acute acute Psoriasis acute Rh negative status during acute Supervision of high-risk acute Thyroid disorder acute H/O miscarriage, currently resolved Infertility resolved Spotting resolved Abnormal glucose affecting acute Depression acute acute Psoriasis acute Rh negative status during acute Supervision of high-risk acute Thyroid disorder acute [facility] Work Phone: Evaluation note* Diagnosis Onset Date Resolution Status Depression acute acute Psoriasis acute Rh negative status during acute Supervision of high-risk acute Thyroid disorder acute H/O miscarriage, currently resolved Infertility resolved Low lying placenta nos or wi thout hemorrhage, second trimester resolved Spotting resolved Depression acute acute Psoriasis acute Rh negative status during acute Supervision of high-risk acute Thyroid disorder acute H/O miscarriage, currently resolved Infertility resolved Low lying placenta nos or wi thout hemorrhage, second trimester resolved Spotting resolved Depression acute acute Psoriasis acute Rh negative status during acute Supervision of high-risk acute Thyroid disorder acute H/O miscarriage, currently resolved Infertility resolved Spotting resolved Abnormal glucose affecting acute Depression acute acute Psoriasis acute Rh negative status during acute Supervision of high-risk acute Thyroid disorder acute H/O miscarriage, currently resolved Infertility resolved Spotting resolved Abnormal glucose affecting acute Depression acute acute Psoriasis acute Rh negative status during acute Supervision of high-risk acute Thyroid disorder acute Abnormal glucose affecting acute Depression acute acute Psoriasis acute Rh negative status during acute Supervision of high-risk acute Thyroid disorder acute Uterine size-date discrepancy, third trimester acute Abnormal glucose affecting acute Depression acute Itching acute acute Psoriasis acute Rh negative status during acute Supervision of high-risk acute Thyroid disorder acute Uterine size-date discrepancy, third trimester acute Abnormal glucose affecting acute Cholestasis during acute Depression acute Itching acute acute Psoriasis acute Rh negative status during acute Status post vaginal delivery acute Supervision of high-risk acute Thyroid disorder acute Uterine size-date discrepancy, third trimester acute [facility] Work Phone: Evaluation note* Diagnosis Onset Date Resolution Status Depression acute Psoriasis acute Thyroid disorder acute H/O miscarriage, currently resolved Infertility resolved Rh negative status during resolved Spotting resolved Depression acute Psoriasis acute Thyroid disorder acute H/O miscarriage, currently resolved Infertility resolved Rh negative status during resolved Spotting resolved Depression acute Psoriasis acute Thyroid disorder acute Rh negative status during resolved Depression acute Psoriasis acute Thyroid disorder acute Rh negative status during resolved Uterine size-date discrepancy, third trimester resolved Depression acute Psoriasis acute Thyroid disorder acute Itching resolved Rh negative status during resolved Uterine size-date discrepancy, third trimester resolved Depression acute Psoriasis acute Status post vaginal delivery acute Thyroid disorder acute Cholestasis during resolved Itching resolved Rh negative status during resolved Uterine size-date discrepancy, third trimester resolved Routine Follow-Up noneactive [facility] Work Phone: Chief Complaint and Reason for Visit Chief Complaint E-ORDER E ORDER Chief Complaint NEW HIRE E-ORDER E ORDER NEW OB ok per JV follow up SAB ROOM 2 E ORDER Reason for Visit Depression Supervision of high risk , antepartum Incomplete Chief Complaint NEW HIRE E-ORDER E ORDER NEW OB ok per JV follow up SAB ROOM 2 E ORDER INCOMPLETE ABORITION Reason for Visit Depression Supervision of high risk , antepartum Incomplete Chief Complaint NEW HIRE E-ORDER E ORDER NEW OB ok per JV follow up SAB ROOM 2 E ORDER INCOMPLETE ABORITION Reason for Visit Depression Chief Complaint NEW OB ok per JV follow up SAB ROOM 2 E ORDER INCOMPLETE ABORITION LABS AND XRAY- RASH, PAIN IN BACK Reason for Visit Depression Chief Complaint LABS AND XRAY- RASH, PAIN IN BACK Chief Complaint INT LAB E-ORDER Chief Complaint INT LAB E-ORDER VISUAL DISTURBANCE E ORDERS THREATENED Rhogam Injection Chief Complaint INT LAB E-ORDER VISUAL DISTURBANCE E ORDERS THREATENED Rhogam Injection THREATENED Chief Complaint INT LAB E-ORDER VISUAL DISTURBANCE E ORDERS THREATENED Rhogam Injection THREATENED NOB LMP: 12/20, pt to see JV at 6 wk per pt Reason for Visit Depression H/O miscarriage, currently Infertility Psoriasis Rh negative status during Spotting Supervision of high-risk Threatened Thyroid disorder Chief Complaint INT LAB E-ORDER VISUAL DISTURBANCE E ORDERS THREATENED Rhogam Injection THREATENED NOB LMP: 12/20, pt to see JV at 6 wk per pt THREATENED Reason for Visit Depression H/O miscarriage, currently Infertility Psoriasis Rh negative status during Spotting Supervision of high-risk Threatened Thyroid disorder Chief Complaint INT LAB E-ORDER VISUAL DISTURBANCE E ORDERS THREATENED Rhogam Injection THREATENED NOB LMP: 12/20, pt to see JV at 6 wk per pt THREATENED 9 WK OB E ORDERS AND BOX Reason for Visit Depression H/O miscarriage, currently Infertility Psoriasis Rh negative status during Spotting Supervision of high-risk Thyroid disorder Depression H/O miscarriage, currently Infertility Psoriasis Rh negative status during Spotting Supervision of high-risk Thyroid disorder Chief Complaint INT LAB E-ORDER VISUAL DISTURBANCE E ORDERS THREATENED Rhogam Injection THREATENED NOB LMP: 12/20, pt to see JV at 6 wk per pt THREATENED 9 WK OB E ORDERS AND BOX us Reason for Visit Depression H/O miscarriage, currently Infertility Psoriasis Rh negative status during Spotting Supervision of high-risk Thyroid disorder Depression H/O miscarriage, currently Infertility Psoriasis Rh negative status during Spotting Supervision of high-risk Thyroid disorder Chief Complaint 17 WK OB 21 WK OB 25 wk 28 WK OB/GLUCOSE 30 WK OB SCREENING FOR GESTATIONAL DIABETES Reason for Visit Depression H/O miscarriage, currently Infertility Psoriasis Rh negative status during Spotting Supervision of high-risk Thyroid disorder Depression H/O miscarriage, currently Infertility Psoriasis Rh negative status during Spotting Supervision of high-risk Thyroid disorder Low lying placenta nos or without hemorrhage, second trimester Depression H/O miscarriage, currently Infertility Psoriasis Rh negative status during Spotting Supervision of high-risk Thyroid disorder Low lying placenta nos or without hemorrhage, second trimester Depression H/O miscarriage, currently Infertility Psoriasis Rh negative status during Spotting Supervision of high-risk Thyroid disorder Abnormal glucose affecting Depression H/O miscarriage, currently Infertility Psoriasis Rh negative status during Spotting Supervision of high-risk Thyroid disorder Chief Complaint 17 WK OB 21 WK OB 25 wk 28 WK OB/GLUCOSE 30 WK OB SCREENING FOR GESTATIONAL DIABETES 32 WK OB NO E ORDERS YET/THYROID??? GROWTH Reason for Visit Depression Psoriasis Rh negative status during Supervision of high-risk Thyroid disorder H/O miscarriage, currently Infertility Spotting Depression Psoriasis Rh negative status during Supervision of high-risk Thyroid disorder H/O miscarriage, currently Infertility Low lying placenta nos or without hemorrhage, second trimester Spotting Depression Psoriasis Rh negative status during Supervision of high-risk Thyroid disorder H/O miscarriage, currently Infertility Low lying placenta nos or without hemorrhage, second trimester Spotting Depression Psoriasis Rh negative status during Supervision of high-risk Thyroid disorder H/O miscarriage, currently Infertility Spotting Abnormal glucose affecting Depression Psoriasis Rh negative status during Supervision of high-risk Thyroid disorder H/O miscarriage, currently Infertility Spotting Abnormal glucose affecting Depression Psoriasis Rh negative status during Supervision of high-risk Thyroid disorder Chief Complaint 21 WK OB 25 wk 28 WK OB/GLUCOSE 30 WK OB SCREENING FOR GESTATIONAL DIABETES 32 WK OB NO E ORDERS YET/THYROID??? GROWTH 34 WK OB 36 WK OB E ORDERS VAGINAL DELIVERY INDUCTION VAGINAL DELIVERY Reason for Visit Depression Psoriasis Rh negative status during Supervision of high-risk Thyroid disorder H/O miscarriage, currently Infertility Low lying placenta nos or without hemorrhage, second trimester Spotting Depression Psoriasis Rh negative status during Supervision of high-risk Thyroid disorder H/O miscarriage, currently Infertility Low lying placenta nos or without hemorrhage, second trimester Spotting Depression Psoriasis Rh negative status during Supervision of high-risk Thyroid disorder H/O miscarriage, currently Infertility Spotting Abnormal glucose affecting Depression Psoriasis Rh negative status during Supervision of high-risk Thyroid disorder H/O miscarriage, currently Infertility Spotting Abnormal glucose affecting Depression Psoriasis Rh negative status during Supervision of high-risk Thyroid disorder Abnormal glucose affecting Depression Psoriasis Rh negative status during Supervision of high-risk Thyroid disorder Uterine size-date discrepancy, third trimester Abnormal glucose affecting Depression Itching Psoriasis Rh negative status during Supervision of high-risk Thyroid disorder Uterine size-date discrepancy, third trimester Abnormal glucose affecting Cholestasis during Depression Itching Psoriasis Rh negative status during Status post vaginal delivery Supervision of high-risk Thyroid disorder Uterine size-date discrepancy, third trimester Chief Complaint 21 WK OB 25 wk 28 WK OB/GLUCOSE 30 WK OB SCREENING FOR GESTATIONAL DIABETES 32 WK OB NO E ORDERS YET/THYROID??? GROWTH 34 WK OB 36 WK OB E ORDERS VAGINAL DELIVERY INDUCTION VAGINAL DELIVERY VAGINAL DELIVERY Reason for Visit Depression Psoriasis Rh negative status during Supervision of high-risk Thyroid disorder H/O miscarriage, currently Infertility Low lying placenta nos or without hemorrhage, second trimester Spotting Depression Psoriasis Rh negative status during Supervision of high-risk Thyroid disorder H/O miscarriage, currently Infertility Low lying placenta nos or without hemorrhage, second trimester Spotting Depression Psoriasis Rh negative status during Supervision of high-risk Thyroid disorder H/O miscarriage, currently Infertility Spotting Abnormal glucose affecting Depression Psoriasis Rh negative status during Supervision of high-risk Thyroid disorder H/O miscarriage, currently Infertility Spotting Abnormal glucose affecting Depression Psoriasis Rh negative status during Supervision of high-risk Thyroid disorder Abnormal glucose affecting Depression Psoriasis Rh negative status during Supervision of high-risk Thyroid disorder Uterine size-date discrepancy, third trimester Abnormal glucose affecting Depression Itching Psoriasis Rh negative status during Supervision of high-risk Thyroid disorder Uterine size-date discrepancy, third trimester Abnormal glucose affecting Cholestasis during Depression Itching Psoriasis Rh negative status during Status post vaginal delivery Supervision of high-risk Thyroid disorder Uterine size-date discrepancy, third trimester Chief Complaint 28 WK OB/GLUCOSE 30 WK OB SCREENING FOR GESTATIONAL DIABETES 32 WK OB NO E ORDERS YET/THYROID??? GROWTH 34 WK OB 36 WK OB E ORDERS VAGINAL DELIVERY INDUCTION VAGINAL DELIVERY VAGINAL DELIVERY visit (obstetrics) Reason for Visit Depression Psoriasis Thyroid disorder H/O miscarriage, currently Infertility Rh negative status during Spotting Depression Psoriasis Thyroid disorder H/O miscarriage, currently Infertility Rh negative status during Spotting Depression Psoriasis Thyroid disorder Rh negative status during Depression Psoriasis Thyroid disorder Rh negative status during Uterine size-date discrepancy, third trimester Depression Psoriasis Thyroid disorder Itching Rh negative status during Uterine size-date discrepancy, third trimester Depression Psoriasis Status post vaginal delivery Thyroid disorder Cholestasis during Itching Rh negative status during Uterine size-date discrepancy, third trimester Routine Follow-Up Advance Directives No Advanced Directives Records Found Advance Directive Response Recorded Date/ Time Living Will No July 09 3:37pm Power of Chiropractic Care No July 09 023 3:37pm Advance Directive Response Recorded Date/ Time Living Will No July 09 4:37pm Power of Chiropractic Care No July 09 023 4:37pm Advance Directive Response Recorded Date/ Time Living Will No January 18, 2023 9:17am Power of Chiropractic Care No January 18 9:17am Advance Directive Response Recorded Date/ Time Living Will No February 04, 2023 12:31pm Power of Chiropractic Care No February 04 12:31pm Advance Directive Response Recorded Date/ Time Living Will No May 19 023 12:21pm Power of Chiropractic Care No May 19, 2023 12:21pm Advance Directive Response Recorded Date/ Time Living Will No September 05, 2023 7:55am Power of Chiropractic Care No September 04 7:55am Advance Directive Response Recorded Date/ Time Living Will No September 05, 2023 8:55am Power of Chiropractic Care No September 04 8:55am Family History No Family History Records Found Relationship Condition Age at Onset Recorded Date/T kev aunt Malignant neoplasm of breast 40 Relationship Condition Age at Onset Recorded Date/T kev aunt Malignant neoplasm of breast 40 father Hypertension Unknown Cerebrovascular accident (CVA) Unknown Bypass graft stenosis Unknown mother Hyperthyroidism Unknown Summary Purpose Additional Source Comments Goals (unrecognized section and content) Goals may be documented in a n alternate sectionGoals may be documented in an alternate sectionGoals may be documented in an alternate sectionGoals may be documented in an alternate sectionGoals may be documented in an alternate sectionGoals may be documented in an alternate sectionGoals may be documented in an alternate sectionGoals may be documented in an alternate sectionGoals may be documented in an alternate sectionGoals may be documented in an alternate sectionGoals may be documented in an alternate sectionGoals may be documented in an alternate sectionGoals may be documented in an alternate sectionGoals may be documented in an alternate sectionGoals may be documented in an alternate section Care Teams (unrecognized sec tion and content) Team Status: Active Member Role Status Dates No Primary Care Physician Primary Care Provider Active Team Status: Inactive Member Role Status Dates No Primary Care Physician Primary Care Provider, Refer ring Provider Active Dr. Samia Parham DO Attending Provider Activ e Team Status: Active Member Role Status Dates No Primary Care Physician Primary Care Provider Active Dr. Samia Parham DO Attending Provider, Referring Provider, Other Provider Active Team Status: Active Member Role Status Dates Employee Health Attending Provider Active Team Status: Active Member Role Status Dates Health Risk Assessment Attending Provider Active Team Status: Inactive Member Role Status Dates No Primary Care Physician Primary Care Provider Active Dr. Samia Parham DO Attending Provider Activ e Team Status: Inactive Member Role Status Dates No Primary Care Physician Primary Care Provider Active Dr. Samia Parham DO Attending Provider, Refe rring Provider Active Team Status: Active Member Role Status Dates Dr. Gloria Barnett MD Primary Care Provider Active Team Status: Inactive Member Role Status Dates Dr. Gloria Barnett MD Primary Care Provide r, Attending Provider, Referring Provider Active Team Status: Inactive Member Role Status Dates Dr. Gloria Barnett MD Primary Care Provide r, Attending Provider, Referring Provider Active Dr. Samia Parham DO Other Provider Active Team Status: Inactive Member Role Status Dates Dr. Gloria Barnett MD Primary Care Provider Active Dr. Samia Parham DO Attending Provider, Refe rring Provider Active Team Status: Active Member Role Status Dates Dr. Gloria Barnett MD Primary Care Provider Active Dr. Samia Parham DO Attending Provider, Refe rring Provider Active Team Status: Inactive Member Role Status Dates Dr. Gloria Barnett MD Primary Care Provider, Referring P rovider Active Dr. Samia Parham DO Attending Provider Activ e Team Status: Active Member Role Status Dates Dr. Gloria Barnett MD Primary Care Provider Active Dr. Samia Parham DO Attending Provider, Refe rring Provider Active Dr. Ryan Mckeon MD Other Provider Active Team Status: Inactive Member Role Status Dates Dr. Gloria Barnett MD Primary Care Provider Active Dr. Samia Parham DO Attending Provider, Refe rring Provider Active Dr. Ryan Mckeon MD Other Provider Active Team Status: Inactive Member Role Status Dates Dr. Gloria Barnett MD Primary Care Provider, Referring P rovider Active Dolly Miner CNM Attending Provider Active Team Status: Inactive Member Role Status Dates Dr. Gloria Barnett MD Primary Care Provider Active Dr. Samia Parham DO Attending Provider Activ e Team Status: Inactive Member Role Status Dates Dr. Gloria Barnett MD Primary Care Provider Active Keysha Chance [employer], [employer] Attending Provider, Referring Provider Active Team Status: Inactive Member Role Status Dates Dr. Gloria Barnett MD Primary Care Provider, Referring P rovider Active Dr. Yoko Alberts MD Attending Provider Active Team Status: Active Member Role Status Dates Dr. Gloria Barnett MD Primary Care Provider Active Dr. Yoko Alberts MD Attending Provider, Referr ing Provider Active Team Status: Inactive Member Role Status Dates Dr. Gloria Barnett MD Primary Care Provider Active Dr. Yoko Alberts MD Attending Provider, Referr ing Provider Active Team Status: Inactive Member Role Status Dates Dr. Gloria Barnett MD Primary Care Provider, Referring P rovider Active Beatriz Monae CNM Attending Provider Active Team Status: Active Member Role Status Dates Dr. Gloria Barnett MD Primary Care Provider Active Dr. Samia Parham DO Admit Prov ider, Attending Provider, Other Provider Active Team Status: Inactive Member Role Status Dates Dr. Gloria Barnett MD Primary Care Provider Active Dr. Samia Parham DO Admit Provider, Attendin g Provider Active INFORMATION SOURCE (unrecogn ized section and content) DATE CREATED AUTHOR 07/03/2023 [facility] DATE CREATED AUTHOR AUTHOR'S ORGANIZ ATION 02/23/2025 [facility] FOR RECORDS PERTAINING TO PATIENTS WHO ARE [...] BE BASED ON THE PRIMARY CLINICAL RECORDS. [employer] provides no warranty or guarantee of the accuracy or completeness of information in this document.
== END | disposition home or self-care (01) ==
PROVIDERS: PCP Family Medicine; Referring Provider Nurse Practitioner Family; Visit Provider Nurse Practitioner Family
DX: M54.12 Radiculopathy, cervical region (principal)
CPT/HCPCS: 72141